=== PATIENT | female | born 1965 | race Two or more races ===

== ENCOUNTER 2020-07-11 16:00 | Outpatient (RCR) | payer MEDICAID, SELFPAY ==
--- NOTE | 2020-07-20 17:27 | MHC.PT.DC ---
[facility] [place] Office [place] [facility] [place] [facility] [address] Alayna Ghotra [address] [phone] F: [phone] F: [phone] F: [phone] F: [phone] Physical Therapy Discharge Report Diagnosis: PIRIFORMIS SYNDROME L SIDE Date of Surgery: N/A Date of Evaluation: 06/06/20 Date of Discharge: 07/20/20 Treatments to Date: 6 Cancellations to Date: 0 No Shows to Date: 2 Discharge Status: Patient Elected to Stop Discharge Summary: Per last note: Pt's right sided symptoms appear to resolve after side glides at wall. She has a difficult time describing her symptoms specifically, when they occur, what the intensity is like, and what movements make it better/worse, however. Trialed L child's pose which also seems to help and TPR to R piriformis. She continues to describe right sided thoracolumbar, hip, buttocks, and lateral leg symptoms as pulling/stretching. Re-edu: importance of HEP (side glides) to determine what improves or does not help her pain/symptoms. Pt verbalizes understanding. No increased pain by end of session. The patient called our office to discharge herself over concerns of COVID-19. Electronically signed by: Radha Cuellar PT, DPT Please sign and return to therapist. Thank you for your referral.
== END 2020-07-20 17:29 | disposition other institution (70) ==
LOC: HO.PT 16:00
PROVIDERS: PCP Emergency Medicine; Visit Provider Anesthesiology
DX: G57.02 Lesion of sciatic nerve, left lower limb (principal)
CPT/HCPCS: 97110; 97140

== ENCOUNTER 2020-12-13 13:01 | Outpatient (REF) | payer MEDICAID, SELFPAY ==
--- NOTE | ~2020-12-13 | US_ITS ---
EXAMINATION: US VENOUS ULTRASOUND WITH DOPPLER LOWER EXTREMITY, BILATERAL CLINICAL INFORMATION: Bilateral leg swelling x 3 months. COMPARISON: None TECHNIQUE: Ultrasound of the deep veins is performed from the hip to the calf with compression sonography and color and pulse Doppler assessment. Spectral analysis with color-flow imaging is performed. FINDINGS: RIGHT: There is normal venous compression and respiratory variation and augmented flow. The visualized common femoral vein, superficial femoral vein, profunda femoral vein, popliteal vein, and the trifurcation region shows no evidence of deep venous thrombosis. There is no significant popliteal fossa cyst. LEFT: There is a deep venous thrombosis seen in the left mid superficial femoral vein. The left proximal end distal superficial femoral, common femoral vein, greater saphenous, profunda, popliteal, peroneal and posterior tibial veins are patent. If the patient's symptoms persist, followup ultrasound in 5 days 7 days might be of value to exclude proximal propagation from a non-visualized calf vein. US/US venous duplex LE BI IMPRESSION: No DVT demonstrated in the right lower extremity. There is DVT seen within mid left superficial femoral vein. The proximal and distal superficial femoral and rest of the left lower leg veins are patent. Results were conveyed to referring physician by the performing industrial service technician.
== END 2020-12-13 13:02 | disposition home or self-care (01) ==
LOC: HO.US 13:01
PROVIDERS: PCP Nurse Practitioner Family; Visit Provider Nurse Practitioner Family
DX: R60.0 Localized edema (principal); M79.89 Other specified soft tissue disorders
CPT/HCPCS: 93970

== ENCOUNTER 2020-12-20 14:10 | Outpatient (REF) | payer MEDICAID, SELFPAY ==
--- NOTE | ~2020-12-20 | XR_ITS ---
EXAMINATION: XR CHEST CLINICAL INFORMATION: Hemoptysis COMPARISON: None TECHNIQUE: 2 views of the chest were obtained. FINDINGS: The lungs are well expanded. There is no focal consolidation, edema, or effusion. No pneumothorax. The cardiomediastinal silhouette is within normal limits. No acute osseous abnormality. Scoliotic curvature of the spine noted. XR/XR chest 2V IMPRESSION: No acute pulmonary finding.
== END 2020-12-20 14:11 | disposition home or self-care (01) ==
LOC: HO.XRAY 14:10
PROVIDERS: PCP Nurse Practitioner Family; Visit Provider General Practice
DX: R04.2 Hemoptysis (principal)
CPT/HCPCS: 71046

== ENCOUNTER 2021-02-07 13:20 | Outpatient (REF) | payer MEDICAID, SELFPAY | END 2021-02-07 13:21 | disposition home or self-care (01) | LOC: HO.LAB 13:20 | PROVIDERS: Visit Provider Obstetrics & Gynecology | DX: R35.0 Frequency of micturition (principal) | CPT/HCPCS: 87086; 99212 ==

== ENCOUNTER → 2021-02-14 13:37 | Outpatient (BNVA) | payer MEDICAID, SELFPAY | PROVIDERS: Visit Provider Obstetrics & Gynecology ==

== ENCOUNTER → 2021-03-21 11:28 | Outpatient (BNVA) | payer MEDICAID, SELFPAY | PROVIDERS: Visit Provider Obstetrics & Gynecology ==

== ENCOUNTER 2021-03-23 15:10 | Outpatient (REF) | payer MEDICAID, SELFPAY ==
--- NOTE | ~2021-03-23 | MM_ITS ---
EXAMINATION: MM SCREENING DIGITAL BREAST TOMOSYNTHESIS, BILATERAL CLINICAL INFORMATION: Screening. Asymptomatic. The lifetime risk of breast cancer based on the Tyrer-Cuzick Model is 7%. COMPARISON: Mammography: 12/03/2018, 11/27/2017, 11/25/2016 TECHNIQUE: Digital breast tomosynthesis is performed in both the craniocaudal and mediolateral oblique views along with computer-aided detection (CAD). Synthesized 2D images are generated from the tomosynthesis. FINDINGS: There are scattered areas of fibroglandular density (ACR BI-RADS breast composition Category b). Parenchymal pattern is similar to prior studies. There is no developing density or interval mass or architectural abnormality. No abnormal calcifications. The axilla and skin contours are unremarkable. MM/MM tomosynthesis screening BI IMPRESSION: No mammographic evidence of malignancy. ASSESSMENT: BI-RADS 1: Negative RECOMMENDATION: Routine annual mammography screening. This patient's information was entered into a reminder system with a target due date for their next mammogram.
== END 2021-03-23 15:11 | disposition home or self-care (01) ==
LOC: HO.MAMMO 15:10
PROVIDERS: PCP Nurse Practitioner Family; Visit Provider Nurse Practitioner Family
DX: Z12.31 Encounter for screening mammogram for malignant neoplasm of breast (principal)
CPT/HCPCS: 77063; 77067

== ENCOUNTER 2021-04-24 09:05 | Outpatient (REF) | payer MEDICAID, SELFPAY | END 2021-04-24 09:06 | disposition home or self-care (01) | LOC: CF 09:05 | PROVIDERS: PCP Nurse Practitioner Family | DX: N39.0 Urinary tract infection, site not specified (principal) | CPT/HCPCS: 51798; 87086; 87147; 99202 ==

== ENCOUNTER 2021-05-02 14:01 | Outpatient (REF) | payer MEDICAID, SELFPAY ==
--- NOTE | ~2021-05-02 | US_ITS ---
EXAMINATION: US VENOUS ULTRASOUND WITH DOPPLER LOWER EXTREMITY, LEFT CLINICAL INFORMATION: Follow up left leg deep vein thrombosis. COMPARISON: Lower extremity venous ultrasound dated 12/13/2020. TECHNIQUE: Ultrasound of the deep veins is performed from the hip to the calf with compression sonography and color and pulse Doppler assessment. Spectral analysis with color-flow imaging is performed. FINDINGS: There is normal venous compression and respiratory variation and augmented flow. The visualized common femoral vein, superficial femoral vein, profunda femoral vein, popliteal vein, and the trifurcation region shows no evidence of deep venous thrombosis. There is no significant popliteal fossa cyst. If the patient's symptoms persist, followup ultrasound in 5 days 7 days might be of value to exclude proximal propagation from a non-visualized calf vein. US/US venous duplex LE LT IMPRESSION: No DVT demonstrated in the left lower extremity. Previously seen left lower extremity deep vein thrombosis no longer identified.
== END 2021-05-02 14:02 | disposition home or self-care (01) ==
LOC: HO.US 14:01
PROVIDERS: Visit Provider Nurse Practitioner Family
DX: I82.542 Chronic embolism and thrombosis of left tibial vein (principal); Z79.01 Long term (current) use of anticoagulants
CPT/HCPCS: 93971

== ENCOUNTER → 2021-06-22 11:05 | Outpatient (BNVA) | payer MEDICAID, SELFPAY | PROVIDERS: PCP Nurse Practitioner Family; Referring Provider Nurse Practitioner Family; Visit Provider Surgery | DX: K80.50 Calculus of bile duct without cholangitis or cholecystitis without obstruction (principal); K80.20 Calculus of gallbladder without cholecystitis without obstruction | CPT/HCPCS: 99202 ==

== ENCOUNTER → 2021-07-03 13:43 | Outpatient (BNVA) | payer MEDICAID, SELFPAY | PROVIDERS: Visit Provider Nurse Practitioner Family | DX: M54.16 Radiculopathy, lumbar region (principal); E11.9 Type 2 diabetes mellitus without complications; I10 Essential (primary) hypertension; R00.0 Tachycardia, unspecified; Z88.8 Allergy status to other drugs, medicaments and biological substances | CPT/HCPCS: 99212 ==

== ENCOUNTER 2021-07-11 08:39 | Day surgery (SDC) | payer MEDICAID, SELFPAY ==
[2021-07-05 13:33] VITALS: BMI 34.0
--- NOTE | 2021-07-10 13:07 | HO.ANESPROP2 ---
Documented by User: Rita Garza NP 07/10/21 13:28 HPI - Anesthesia Eval Consult details Narrative: 56yo F for Cholecystectomy Laparoscopic,poss open DVT 11/2020 - f/u LE doppler negative. Xarelto d/c'd recently PMFSH Active Problems Active Problems: All Active Problems (Updated 07/05/21 @ 13:36 by Narda Rosenberg RN) Increased frequency of urination (Acute) UTI (urinary tract infection) (Acute) Biliary colic (Acute) Cholelithiasis (Acute) Lumbar radiculopathy, right (Acute) Past Medical History Medical History COVID-19 vaccine series completed Diabetes mellitus DVT (deep venous thrombosis) Elevated cholesterol GERD (gastroesophageal reflux disease) HTN (hypertension) Tachycardia Family History Family History Mother Uterine cancer Father Prostate cancer Surgical History Surgical History H/O colonoscopy H/O tubal ligation History of endometrial ablation History of right knee surgery Hx of dilation and curettage Hx of hemorrhoidectomy Social History Social History Are you a primary acute care clinical nurse specialist to a significant other at home: No Do you presently have visiting nurse or other home services: No Alcohol intake: never Patient Tobacco Use Status: Never used Tobacco Use of substances other than those prescribed or required for medical reasons: No Have you been hit, kicked, punched, or otherwise hurt by someone within the past year? If so, by whom?: No Are you DNR?: No Advance Directives: No Advance Directives Information Provided: Yes (informational brochure mailed) Advance Directives on File: No Recently lost weight without trying: No Eating poorly because of decreased appetite: No Nutrition Risks: No Nutritional Risk Patient : No Poor oral hygiene: No Sexual orientation: Straight/Heterosexual Gender identity: Female Meds Allergies Allergy/AdvReac Type Severity Reaction Status Date / Time citalopram Allergy facial tic Verified 07/11/21 08:59 Home Medications Medication Instructions Recorded Confirmed Last Taken Type loratadine 10 mg tablet 10 mg PO DAILY 02/14/21 07/05/21 Unknown History alcohol swabs (BD Alcohol Swabs) 0 pad TOPICAL 06/22/21 Unknown History baclofen 10 mg tablet 10 mg PO BID 06/22/21 07/05/21 07/11/21 07:00 History lancets 28 gauge (FreeStyle #100 ea 06/22/21 Unknown History Lancets) naproxen 500 mg tablet 500 mg PO BID 06/22/21 07/05/21 Unknown History pantoprazole 40 mg tablet,delayed 40 mg PO BID 06/22/21 07/05/21 07/11/21 07:00 History release pravastatin 10 mg tablet 10 mg PO DAILY 06/22/21 07/05/21 Unknown History metformin 500 mg tablet 500 mg PO BID tab 07/03/21 07/05/21 Unknown History diltiazem HCl 180 mg 2 cap PO DAILY 07/05/21 07/05/21 Unknown History capsule,extended release 24 hr (Cartia XT) losartan 50 mg tablet 1 tab PO DAILY 07/05/21 07/05/21 07/11/21 07:00 History Exam Exam Date and Time: July 10, 2021 1307 Height,Weight and Vital Signs: Height 5 ft 3 in Weight 87.09 kg Assessment and Plan Assessment Anesthesia Assessment: Chart Reviewed Documented by User: Savannah Wilson MD 07/11/21 09:59 [facility] Past Medical History Medical History COVID-19 vaccine series completed Diabetes mellitus DVT (deep venous thrombosis) Elevated cholesterol GERD (gastroesophageal reflux disease) HTN (hypertension) Tachycardia Family History Family History Mother Uterine cancer Father Prostate cancer Surgical History Surgical History H/O colonoscopy H/O tubal ligation History of endometrial ablation History of right knee surgery Hx of dilation and curettage Hx of hemorrhoidectomy History of Problems with Anesthesia: No Social History Social History Are you a primary acute care clinical nurse specialist to a significant other at home: No Do you presently have visiting nurse or other home services: No Alcohol intake: never Patient Tobacco Use Status: Never used Tobacco Use of substances other than those prescribed or required for medical reasons: No Have you been hit, kicked, punched, or otherwise hurt by someone within the past year? If so, by whom?: No Are you DNR?: No Advance Directives: No Advance Directives Information Provided: Yes (informational brochure mailed) Advance Directives on File: No Recently lost weight without trying: No Eating poorly because of decreased appetite: No Nutrition Risks: No Nutritional Risk Patient : No Poor oral hygiene: No Sexual orientation: Straight/Heterosexual Gender identity: Female Meds Allergies Allergy/AdvReac Type Severity Reaction Status Date / Time citalopram Allergy facial tic Verified 07/11/21 08:59 Home Medications Medication Instructions Recorded Confirmed Last Taken Type loratadine 10 mg tablet 10 mg PO DAILY 02/14/21 07/05/21 Unknown History alcohol swabs (BD Alcohol Swabs) 0 pad TOPICAL 06/22/21 Unknown History baclofen 10 mg tablet 10 mg PO BID 06/22/21 07/05/21 07/11/21 07:00 History lancets 28 gauge (FreeStyle #100 ea 06/22/21 Unknown History Lancets) naproxen 500 mg tablet 500 mg PO BID 06/22/21 07/05/21 Unknown History pantoprazole 40 mg tablet,delayed 40 mg PO BID 06/22/21 07/05/21 07/11/21 07:00 History release pravastatin 10 mg tablet 10 mg PO DAILY 06/22/21 07/05/21 Unknown History metformin 500 mg tablet 500 mg PO BID tab 07/03/21 07/05/21 Unknown History diltiazem HCl 180 mg 2 cap PO DAILY 07/05/21 07/05/21 Unknown History capsule,extended release 24 hr (Cartia XT) losartan 50 mg tablet 1 tab PO DAILY 07/05/21 07/05/21 07/11/21 07:00 History Exam Airway Mallampati Class: II TM Dist: >3cm Neck ROM: Full Loose/Missing/Broken Teeth: No Heart: RRR Lungs: CTA Assessment and Plan Final Anesthetic Review History of Problems with Anesthesia: No NPO: Yes ASA Class: II Final Preanesthetic Review: Meds/Allgs Chart Reviewed, Consent Obtained/Reviewed and Anes Risks/Benef Reviewed Patient Risk: Low Procedure Risk: Intermediate Anesthetic Plan Anesthetic Plan: GA Disposition: Standard PACU
[2021-07-11] VITALS (8 sets, daily range): BP systolic 118–148; BP diastolic 64–77; PULSE 57–77; RESP 16–18; TEMP 36.4–36.6; O2SAT 95–100
--- NOTE | 2021-07-11 | ECG_ITS ---
Test Reason : preop Blood Pressure : / mmHG Vent. Rate : 076 BPM Atrial Rate : 076 BPM P-R Int : 168 ms QRS Dur : 078 ms QT Int : 382 ms P-R-T Axes : 045 034 -09 degrees QTc Int : 429 ms Normal sinus rhythm Nonspecific ST abnormality Borderline ECG When compared with ECG of 20-AUG-2016 13:40, No significant change was found Referred By: Rita Garza Electronically Signed By:JEANE VEGAS MD
[2021-07-11 09:05] LABS: Glucose, Whole Blood 125 mg/dL (60-115)
[2021-07-11] MEDS: Acetaminophen 325 MG TABLET 650 MG PO (09:05)
[2021-07-11] MEDS: Lactated Ringers 1,000 ML 100 ML IVCONT (09:29)
[2021-07-11 09:31] LABS: Hematocrit 37.9 % (37-47); Hemoglobin 12.6 g/dl (12.0-16.0); Mean Corpuscular HGB Conc 33.2 g/dl (31.0-35.0); Mean Corpuscular Hemoglobin 29.3 pg (27.0-33.0); Mean Corpuscular Volume 88.1 fL (80-98); Platelet Count 172 X10*3/uL (160-400); White Blood Count 5.7 X10*3/uL (4.8-10.8)
[2021-07-11 09:36] LABS: Anion Gap 12 (12-20); Blood Urea Nitrogen 11 mg/dL (9-16); Calcium 9.3 mg/dL (8.4-10.2); Carbon Dioxide 25 mmol/L (22-29); Chloride 108 mmol/L (96-108); Creatinine Clr Calc Pharmacy 75.6; Estimated Glomerular Filt Rate > 60; Glucose Fasting 129 mg/dL (60-99); Potassium 3.8 mmol/L (3.3-5.1); Sodium 141 mmol/L (135-145)
--- NOTE | 2021-07-11 09:56 | MHC.SHP ---
Pre-Procedural Eval Section A Date of Service: 07/11/21 The patient is an INPATIENT: No Changes since office visit: Yes Patient answered all questions; No Cold of Flu in the past 2 weeks, No New Medical Problems and No Changes in Medication The History & Physical has been completed within 30 days and I have reviewed it.: Yes Section B Chief Complaint: disease of gallbladder Allergies: Allergies Allergy/AdvReac Type Severity Reaction Status Date / Time citalopram Allergy facial tic Verified 07/11/21 08:59 Plan Diagnosis/Plan: Unchanged I have reviewed the history and physical and performed a pertinent physical examination on my patient. No changes have occurred unless specified.
--- NOTE | 2021-07-11 11:12 | W.PM.OPN ---
Operative Note Operative Note Date of Service: 07/11/21 Narrative: Preoperative diagnosis: Biliary colic Postoperative diagnosis: Same Procedure: Laparoscopic cholecystectomy Surgeon: Darrel Panda MD Diplomatic Interpreter: NURA Gerard Anesthesia: General endotracheal Indications for procedure: 56 year old female patient wit complaints of abdominal pain in the right upper quadrant, found on ultrasound to have gallstones in the gallbladder. She has a strong family history of biliary disease. She presents today for a laparoscopic cholecystectomy Operative findings:Adhesions to the gallbladder with evidence of previous inflammation of the gallbladder. Gallstones in gallbladder Specimen: gallbladder Estimated blood loss:2 ml Complications: none Procedure details: Patient was brought to the OR and placed in a supine position. After administering general anesthesia the patient's abdomen was prepped with ChloraPrep and draped in a sterile fashion. Local anesthesia consisting of 0.5% Sensorcaine without epinephrine was infiltrated in a periumbilical region. A 5 mm incision was made above the umbilicus in a transverse fashion. The Veress needle was then inserted while elevating abdominal cavity with towel clips. After positive drop test the abdomen was insufflated to a pressure of 15 mm of mercury. The Veress needle was then removed and a 5 mm trocar inserted. The camera was inserted in the abdomen explored. A 12 mm trocar was then placed in the epigastrium and two 5 mm trocars placed in the right upper quadrant. The patient was placed in reverse Trendelenburg positioning and rotated to the left. The gallbladder was grasped with the fundus and retracted cephalad.. The infundibulum was then grasped and retracted away from the liver bed. The Dolphin dissected was then used to dissect the peritoneum off the infundibulum to reveal the junction with the cystic duct. Cystic artery was noted slightly medial and posterior to the cystic duct. After obtaining a critical view the cystic duct was doubly clipped and divided. The cystic artery was then doubly clipped and divided. The gallbladder was then dissected off the liver bed using electrocautery with an L hook. Hemostasis was assured all times using the electrocautery. When the gallbladder is completely dissected off the liver bed was placed in an Endo-Catch bag and brought out through the epigastric incision. The gallbladder was sent to pathology for further examination. The abdomen was then re-examined. The liver bed was irrigated and suctioned dry. No bleeding or bile leak could be identified. CO2 was then evacuated and all trocars removed. Fascia was closed at the epigastric incision using a [id number] 0 Polysorb suture. Skin was closed in all incisions using a subcuticular 4 0 Polysorb suture. Sterile dressings consisting of Steri-Strips, 2 x 2 gauze, and Tegaderm were then applied. The patient tolerated the procedure well. Sponge instrument and needle counts reported as correct. The patient was transferred to PACU in stable condition.
[2021-07-11] MEDS: oxyCODONE HCl Immed Release 5 MG TABLET PO (11:55)
[2021-07-11] MEDS: Ondansetron ODT 4 MG TAB.RAPDIS TRANSLINGU (12:56)
--- NOTE | 2021-07-11 13:02 | PC.NURSE ---
07/11/21 1255 Patient complaining of nausea Zofran 4mg subliqual given as ordered for nausea. Patient states pain is tolerable. IOnterpreter used
== END 2021-07-11 13:40 | disposition home or self-care (01) ==
PROVIDERS: Nurse Practitioner; PCP Nurse Practitioner Family; Visit Provider Surgery
PROC: 0FT44ZZ Resection of Gallbladder, Percutaneous Endoscopic Approach (ICD-10-PCS; CPT 47562; principal; 2021-07-11 10:20)
DX: K80.10 Calculus of gallbladder with chronic cholecystitis without obstruction (principal); K82.8 Other specified diseases of gallbladder; E11.9 Type 2 diabetes mellitus without complications; Z79.84 Long term (current) use of oral hypoglycemic drugs; I10 Essential (primary) hypertension; Z79.899 Other long term (current) drug therapy; Z86.718 Personal history of other venous thrombosis and embolism
CPT/HCPCS: 47562; 36415; 80048; 82947; 85027; 88304; 93005; J1100; J2250; J2405; J3010

== ENCOUNTER → 2021-07-20 10:52 | Outpatient (BNVA) | payer MEDICAID, SELFPAY | PROVIDERS: PCP Nurse Practitioner Family; Referring Provider Nurse Practitioner Family; Visit Provider Surgery | DX: Z48.815 Encounter for surgical aftercare following surgery on the digestive system (principal); Z87.19 Personal history of other diseases of the digestive system | CPT/HCPCS: 99212 ==

== ENCOUNTER 2021-07-31 06:28 | Outpatient (REF) | payer MEDICAID, SELFPAY ==
--- NOTE | ~2021-07-31 | FL_ITS ---
EXAMINATION: XR FLUOROSCOPY WITH IMAGES CLINICAL INFORMATION: Lumbar radiculopathy. COMPARISON: None. TECHNIQUE: Fluoroscopy performed by Elo Mosley NP. Fluoroscopy time: 0.3 minutes DAP: 4.87 Gycm2 Images: 1 FINDINGS: Fluoroscopic assistance was provided at the time of the procedure. There is a radiopaque needle and a radiopaque tube identified projecting at the level of the right neural foramina at the level of L3-L4 with opacified contrast. FL/FL guidance in treatment room IMPRESSION: Please refer to the procedural note for further full details.
== END 2021-07-31 06:29 | disposition home or self-care (01) ==
LOC: HO.RADIR 06:28
PROVIDERS: Visit Provider Anesthesiology
DX: M54.16 Radiculopathy, lumbar region (principal)
CPT/HCPCS: J3300; Q9967

== ENCOUNTER → 2021-08-28 09:21 | Outpatient (BNVA) | payer MEDICAID, SELFPAY | PROVIDERS: PCP Nurse Practitioner Family; Visit Provider Nurse Practitioner Family | DX: M47.816 Spondylosis without myelopathy or radiculopathy, lumbar region (principal); M53.3 Sacrococcygeal disorders, not elsewhere classified | CPT/HCPCS: 99212 ==

== ENCOUNTER → 2021-10-19 14:56 | Outpatient (BNVA) | payer MEDICAID, SELFPAY | PROVIDERS: PCP Nurse Practitioner Family; Visit Provider Nurse Practitioner Family | DX: M47.816 Spondylosis without myelopathy or radiculopathy, lumbar region (principal); M53.3 Sacrococcygeal disorders, not elsewhere classified | CPT/HCPCS: 99212 ==

== ENCOUNTER 2022-01-15 14:56 | Outpatient (REF) | payer MEDICAID, SELFPAY ==
[2022-01-18 09:16] LABS: HPV mRNA E6/E7 rflx Not Detected (Not Detected)
== END 2022-01-15 14:57 | disposition home or self-care (01) ==
LOC: HO.LAB 14:56
PROVIDERS: PCP Nurse Practitioner Family; Visit Provider Obstetrics & Gynecology
DX: Z01.419 Encounter for gynecological examination (general) (routine) without abnormal findings (principal); N88.9 Noninflammatory disorder of cervix uteri, unspecified
CPT/HCPCS: 57500; 87624; 88142; 88305

== ENCOUNTER → 2022-02-06 15:47 | Outpatient (BNVA) | payer MEDICAID, SELFPAY | PROVIDERS: Visit Provider Obstetrics & Gynecology | DX: N88.9 Noninflammatory disorder of cervix uteri, unspecified (principal) | CPT/HCPCS: 99212 ==

== ENCOUNTER 2022-03-06 15:45 | Outpatient (REF) | payer MEDICAID, SELFPAY ==
--- NOTE | ~2022-03-06 | US_ITS ---
EXAMINATION: US LOWER EXTREMITY VENOUS DOPPLER, LEFT CLINICAL INFORMATION: Left leg pain. COMPARISON: None TECHNIQUE: Ultrasound of the deep veins is performed from the hip to the calf with compression sonography and color and pulse Doppler assessment. Spectral analysis with color-flow imaging is performed. FINDINGS: There is normal venous compression and respiratory variation and augmented flow. The visualized common femoral vein, superficial femoral vein, profunda femoral vein, popliteal vein, and the trifurcation region shows no evidence of deep venous thrombosis. There is no significant popliteal fossa cyst. Incidental note is made of anechoic fluid collection in the proximal medial calf where patient complains of pain, question muscle tear/hematoma. It measures 3.4 x 2.1 x 0.64 cm. If the patient's symptoms persist, followup ultrasound in 5 days 7 days might be of value to exclude proximal propagation from a non-visualized calf vein. US/US venous duplex LE IMPRESSION: No DVT demonstrated in the left lower extremity. Small anechoic fluid collection in the medial calf most likely hematoma or seroma from muscle tear.
== END 2022-03-06 15:46 | disposition home or self-care (01) ==
LOC: HO.US 15:45
PROVIDERS: Visit Provider Nurse Practitioner Family
DX: M79.605 Pain in left leg (principal)
CPT/HCPCS: 93971

== ENCOUNTER 2022-03-26 15:55 | Outpatient (REF) | payer MEDICAID, SELFPAY ==
--- NOTE | ~2022-03-26 | MM_ITS ---
EXAMINATION: MM SCREENING DIGITAL BREAST TOMOSYNTHESIS, BILATERAL CLINICAL INFORMATION: Screening. Asymptomatic. The lifetime risk of breast cancer based on the Tyrer-Cuzick Model is 8%. COMPARISON: Mammography: 03/23/2021, 12/03/2018, 11/27/2017 TECHNIQUE: Digital breast tomosynthesis is performed in both the craniocaudal and mediolateral oblique views along with computer-aided detection (CAD). Synthesized 2D images are generated from the tomosynthesis. Additional left MLO view is provided. FINDINGS: There are scattered areas of fibroglandular density (ACR BI-RADS breast composition Category b). There are no significant masses, abnormal calcifications, or other abnormalities. Parenchymal pattern is similar to previous exams. No significant changes. MM/MM tomosynthesis screening BI IMPRESSION: No mammographic evidence of malignancy. ASSESSMENT: BI-RADS 1: Negative RECOMMENDATION: Routine annual mammography screening. This patient's information was entered into a reminder system with a target due date for their next mammogram.
== END 2022-03-26 15:56 | disposition home or self-care (01) ==
LOC: HO.MAMMO 15:55
PROVIDERS: Visit Provider Obstetrics & Gynecology
DX: Z12.31 Encounter for screening mammogram for malignant neoplasm of breast (principal)
CPT/HCPCS: 77063; 77067

== ENCOUNTER → 2022-03-29 15:48 | Outpatient (BNVA) | payer MEDICAID, SELFPAY | PROVIDERS: Visit Provider Nurse Practitioner Family | DX: M47.816 Spondylosis without myelopathy or radiculopathy, lumbar region (principal); M53.3 Sacrococcygeal disorders, not elsewhere classified; M62.838 Other muscle spasm | CPT/HCPCS: 99212 ==

== ENCOUNTER → 2022-06-24 15:26 | Outpatient (BNVA) | payer MEDICAID, SELFPAY | PROVIDERS: Visit Provider Anesthesiology | DX: M47.816 Spondylosis without myelopathy or radiculopathy, lumbar region (principal); M53.3 Sacrococcygeal disorders, not elsewhere classified; M51.36 Other intervertebral disc degeneration, lumbar region | CPT/HCPCS: 99212 ==

== ENCOUNTER 2022-09-12 13:57 | Outpatient (REF) | payer MEDICAID, SELFPAY ==
--- NOTE | ~2022-09-12 | US_ITS ---
EXAMINATION: US VENOUS ULTRASOUND WITH DOPPLER LOWER EXTREMITY, LEFT CLINICAL INFORMATION: History of DVT COMPARISON: Previous exams most recent February 2022 TECHNIQUE: Ultrasound of the deep veins is performed from the hip to the calf with compression sonography and color and pulse Doppler assessment. Spectral analysis with color-flow imaging is performed. FINDINGS: There is normal venous compression and respiratory variation and augmented flow. The visualized common femoral vein, superficial femoral vein, profunda femoral vein, popliteal vein, and the trifurcation region shows no evidence of deep venous thrombosis. There is no significant popliteal fossa cyst. US/US venous duplex LE LT IMPRESSION: No DVT demonstrated in the left lower extremity.
== END 2022-09-12 13:58 | disposition home or self-care (01) ==
LOC: HO.US 13:57
PROVIDERS: PCP Registered Nurse; Visit Provider Registered Nurse
DX: Z86.718 Personal history of other venous thrombosis and embolism (principal)
CPT/HCPCS: 93971

== ENCOUNTER 2022-12-31 07:58 | Outpatient (REF) | payer MEDICAID, SELFPAY ==
--- NOTE | ~2022-12-31 | MM_ITS ---
EXAMINATION: MM DIAGNOSTIC DIGITAL BREAST TOMOSYNTHESIS, BILATERAL US DIAGNOSTIC ULTRASOUND BREAST, BILATERAL CLINICAL INFORMATION: 57-year-old with 2-3 week history of on and off scattered bilateral breast pain, greater upper quadrants. No palpable mass or discharge. Due for yearly. The lifetime risk of breast cancer based on the Tyrer-Cuzick Model is 6%. COMPARISON: Multiple prior exams, most recent 03/26/2022. TECHNIQUE: Digital breast tomosynthesis is performed in both the craniocaudal and mediolateral oblique views along with computer-aided detection (CAD). Synthesized 2D images are generated from the tomosynthesis. Ultrasound bilateral breasts is targeted to the areas of clinical concern using grayscale imaging and color Doppler without and with harmonics. Patient is able to point areas of concern at time of imaging. FINDINGS: There are scattered areas of fibroglandular density (ACR BI-RADS breast composition Category b). Parenchymal pattern is similar to prior studies. There is no developing density or architectural abnormality. No skin thickening or coarsening of the Dewey's ligaments. There are no significant masses, abnormal calcifications, or other abnormalities. The axilla and skin contours are unremarkable. No significant changes. Bilateral breast ultrasound demonstrates no cystic or solid mass or architectural abnormality. No focal duct ectasia. No skin thickening or edema tracking in soft tissue planes. Results are discussed with the patient at time of visit. MM/MM tomosynthesis diagnostic BI IMPRESSION: -No mammographic evidence of malignancy or inflammatory changes. -Unremarkable bilateral targeted breast ultrasound. ASSESSMENT: BI-RADS 1: Negative RECOMMENDATION: 1. Patient's mastodynia should be managed based on the clinical impression. 2. Otherwise, routine annual screening mammography. This patient's information was entered into a reminder system with a target due date for their next mammogram.
== END 2022-12-31 07:59 | disposition home or self-care (01) ==
LOC: HO.MAMMO 07:58
PROVIDERS: Visit Provider Registered Nurse
DX: N64.4 Mastodynia (principal)
CPT/HCPCS: 76642; 77062; 77066

== ENCOUNTER → 2023-01-20 14:59 | Outpatient (BNVA) | payer MEDICAID, SELFPAY | PROVIDERS: PCP Registered Nurse; Visit Provider Obstetrics & Gynecology ==

== ENCOUNTER 2023-07-14 17:03 | Emergency (ER) | payer MEDICAID, SELFPAY ==
[2023-07-14 17:17] VITALS: BP 158/76; PULSE 86; RESP 20; TEMP 36.5; O2SAT 96; BMI 33.3
--- NOTE | 2023-07-14 17:18 | ED_ITS ---
HPI - General Adult General Chief complaint: General Medical Stated complaint: accidentally took her diltiazem 6hrs early.anxious Time Seen by Provider: 07/14/23 18:19 Source: patient Mode of arrival: ambulatory Limitations: no limitations History of Present Illness HPI narrative: 58 yo female presenting to the ER for evaluation after she accidentally took her prescribed cardizem 6 hours earlier than she usually does. she is anxous and worried but she denies chest pain, SOB, dizziness, lightheadedness. she states she is on cardizem for tachycardia and she was worried about getting a slow heart rate complaint: anxious Onset (ago): hour(s) Relieving factors: none Exacerbating factors: none Associated symptoms: denies other symptoms Treatments prior to arrival: none Related Data Home Medications Medication Instructions Recorded Confirmed alcohol swabs (BD Alcohol Swabs) 0 pad topical diabetes mellitus 06/22/21 lancets 28 gauge (FreeStyle #100 ea 06/22/21 Lancets) pantoprazole 40 mg tablet,delayed 40 mg PO BID 06/22/21 03/29/22 release pravastatin 10 mg tablet 10 mg PO DAILY 06/22/21 03/29/22 metformin 500 mg tablet 500 mg PO BID 07/03/21 03/29/22 diltiazem HCl 180 mg 2 cap PO DAILY 07/05/21 03/29/22 capsule,extended release 24 hr (Cartia XT) losartan 50 mg tablet 1 tab PO DAILY 07/05/21 03/29/22 cetirizine 10 mg tablet 10 mg PO DAILY PRN allergies 01/20/23 Previous Rx's Medication Instructions Recorded back brace #1 ea 08/28/21 cyclobenzaprine 10 mg tablet 10 mg PO BID PRN muscle spasm 30 06/24/22 days #45 tabs Allergies Allergy/AdvReac Type Severity Reaction Status Date / Time citalopram Allergy facial tic Verified 01/20/23 15:28 methocarbamol AdvReac Intermediate insomnia Verified 01/20/23 15:28 Review of Systems Review of Systems: Yes all other systems are reviewed and are negative PMFSH Past Medical History Medical History COVID-19 vaccine series completed Diabetes mellitus DVT (deep venous thrombosis) Elevated cholesterol GERD (gastroesophageal reflux disease) HTN (hypertension) Tachycardia Surgical History H/O colonoscopy H/O tubal ligation History of endometrial ablation History of right knee surgery Hx of dilation and curettage Hx of hemorrhoidectomy S/P laparoscopic cholecystectomy (07/11/21) Family History Family History Mother Uterine cancer Father Prostate cancer Family/Other History of breast cancer Family/Other Ovarian cancer Brother Prostate cancer Social History Social History Are you a primary rn progressive care unit to a significant other at home: No Do you presently have visiting nurse or other home services: No Alcohol intake: never Patient Tobacco Use Status: Never used Tobacco Sexual orientation: Straight/Heterosexual Gender identity: Female Physical Exam ED Vital Signs: Vital Signs - 24 hr 07/14/23 17:17 07/14/23 18:23 Temperature 97.7 F Pulse Rate 86 80 Respiratory Rate 20 18 Blood Pressure 158/76 H 169/79 H Pulse Oximetry 96 100 Oxygen Delivery Method Room Air Room Air BMI result Body Mass Index 33.3 Appearance: Alert. Oriented X3. No acute distress. HEENT: normal inspection CVS: Normal heart rate and rhythm. Pulses normal. Respiratory: No respiratory distress. Lungs CTAB Skin: Skin warm and dry. Normal skin color. Extremities: normal inspection Neuro: Oriented X 3. grossly nomal, nonfocal Course Course Course Narrative: RME performed by Marianne Rocha PA-C. Patient is a 58 year old assigned female at presenting to the emergency department with anxiety after taking her Cardizem early. Patient placed back in the waiting room pending room availability. Medical Decision Making Medical Decision Making MDM Narrative: 58 yo female presents to the ER after taking her prescribed cardizem ER early by mistake. she usually takes 2 tablets at night before bed. she accidentally took them this evening, was able to spit one out but swallowed the other. she is worried about a slow heart rate she denies palpitations, lethargy, dizziness, lightheadedness. she is anxious HR 70-80s in the ER with BP 150-160 systolic. patient counseled adn reassured - no safety concern w/ taking the medication early. stable for discharge home Differential Diagnosis Differential Diagnoses: The differential diagnosis associated with the presentation includes adverse reaction to medication, anxiety, medication overdose Chronic Conditions Patient?s care impacted by: Other (tachycardia) Critical Care Time Critical Care Time Critical Care Time: No Discharge Plan Discharge Clinical Impression: Anxiety Patient Disposition: Home, Self-Care Instructions: Anxiety (ED) Additional Instructions: Taking your cardizem early is not dangerous. Your heart rates were normal in the ER today It is okay to take your 2nd pill of cardizem later tonight and then resume your regular schudule tomorrow follow up with your doctor as needed If you develop new or worsening symptoms call 911 or come back to the ER for further evaluation. Prescriptions: No Action diltiazem HCl [Cartia XT] 180 mg capsule,extended release 24hr 2 cap PO DAILY losartan 50 mg tablet 1 tab PO DAILY pantoprazole 40 mg tablet,delayed release (DR/EC) 40 mg PO BID (DME) lancets [FreeStyle Lancets] 28 gauge misc See Rx Instructions Not Applicable DAILY Qty: 100 Rx Instructions: As directed alcohol swabs [BD Alcohol Swabs] Pads, Medicated 0 pad topical pravastatin 10 mg tablet 10 mg PO DAILY metformin 500 mg tablet 500 mg PO BID (DME) back brace Misc See Rx Instructions .Route Qty: 1 0RF Rx Instructions: As directed cetirizine 10 mg tablet 10 mg PO DAILY PRN (Reason: allergies) cyclobenzaprine 10 mg tablet 10 mg PO BID PRN (Reason: muscle spasm) 30 Days Qty: 45 11RF
[2023-07-14 18:23] VITALS: BP 169/79; PULSE 80; RESP 18; O2SAT 100
--- NOTE | 2023-07-14 18:24 | PC.NURSE ---
Vitals rechecked, HR/BP stable, provider at bedside, education given to patient on medication to take tonight, pt is still anxious but is in agreement with plan
== END 2023-07-14 18:37 | disposition home or self-care (01) ==
PROVIDERS: Emergency Provider Emergency Medicine Emergency Medical Services
DX: F41.1 Generalized anxiety disorder (principal); F43.0 Acute stress reaction; Z86.718 Personal history of other venous thrombosis and embolism; I10 Essential (primary) hypertension; Z79.899 Other long term (current) drug therapy
CPT/HCPCS: 99282

== ENCOUNTER 2023-07-21 14:31 | Outpatient (REF) | payer MEDICAID, SELFPAY ==
[2023-07-22 12:12] LABS: Vitamin D 25-OH Total 57.1 ng/mL (>30)
== END 2023-07-21 14:32 | disposition home or self-care (01) ==
LOC: HO.CHCLDS 14:31
PROVIDERS: Visit Provider Registered Nurse
DX: E55.9 Vitamin D deficiency, unspecified (principal)
CPT/HCPCS: 36415; 82306

== ENCOUNTER 2023-07-29 14:23 | Outpatient (REF) | payer MEDICAID, SELFPAY ==
--- NOTE | ~2023-07-29 | XR_ITS ---
EXAMINATION: XR BILATERAL KNEES CLINICAL INFORMATION: Reason for Exam PAIN COMPARISON: None TECHNIQUE: 4 views of the bilateral knees FINDINGS: RIGHT KNEE: No acute fracture or dislocation. Well-corticated defect in the medial right patella which may be postsurgical or chronic posttraumatic in etiology. Mild degenerative changes of the knee with medial and lateral compartment osteophytes. No joint effusion. Soft tissues are unremarkable. LEFT KNEE: No acute fracture or dislocation. Mild degenerative changes of the knee with small medial compartment osteophytes. No joint effusion. Soft tissues are unremarkable. XR/XR knee RT 3V IMPRESSION: * No acute osseous abnormality. Well-corticated defect in the medial right patella which may be postsurgical or chronic posttraumatic in etiology. * Mild degenerative changes of the knees.
--- NOTE | ~2023-07-29 | XR_ITS ---
EXAMINATION: XR BILATERAL KNEES CLINICAL INFORMATION: Reason for Exam PAIN COMPARISON: None TECHNIQUE: 4 views of the bilateral knees FINDINGS: RIGHT KNEE: No acute fracture or dislocation. Well-corticated defect in the medial right patella which may be postsurgical or chronic posttraumatic in etiology. Mild degenerative changes of the knee with medial and lateral compartment osteophytes. No joint effusion. Soft tissues are unremarkable. LEFT KNEE: No acute fracture or dislocation. Mild degenerative changes of the knee with small medial compartment osteophytes. No joint effusion. Soft tissues are unremarkable. XR/XR knee LT 3V IMPRESSION: * No acute osseous abnormality. Well-corticated defect in the medial right patella which may be postsurgical or chronic posttraumatic in etiology. * Mild degenerative changes of the knees.
== END 2023-07-29 14:24 | disposition home or self-care (01) ==
LOC: HO.HHCX 14:23
PROVIDERS: Visit Provider Registered Nurse
DX: M25.561 Pain in right knee (principal); M25.562 Pain in left knee; G89.29 Other chronic pain
CPT/HCPCS: 73562

== ENCOUNTER 2023-10-02 13:48 | Outpatient (AMB) | payer MEDICAID, SELFPAY ==
--- NOTE | 2023-10-02 13:50 | A.OFFVIS_ITS ---
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 She complains of pain with daily activity. She follows with Pain Management for lumbar DDD. [facility] Medical History COVID-19 vaccine series completed Diabetes mellitus DVT (deep venous thrombosis) Elevated cholesterol GERD (gastroesophageal reflux disease) HTN (hypertension) Tachycardia Surgical History H/O colonoscopy H/O tubal ligation History of endometrial ablation History of right knee surgery Hx of dilation and curettage Hx of hemorrhoidectomy S/P laparoscopic cholecystectomy (07/11/21) Family History Mother Uterine cancer Father Prostate cancer Family/Other History of breast cancer Family/Other Ovarian cancer Brother Prostate cancer Social History Are you a primary home care manager rn to a significant other at home: No Do you presently have visiting nurse or other home services: No Alcohol intake: never Patient Tobacco Use Status: Never used Tobacco Sexual orientation: Straight/Heterosexual Gender identity: Female Female Reproductive History Menstrual Age of Menarche: 14 Review of Systems Const All systems reviewed & are unremarkable except as noted in HPI and below Physical Exam Vital Signs: BMI result Body Mass Index 35.1 Const General: no acute distress, alert and awake Orientation/consciousness: patient oriented x3 HEENT Head: Yes normocephalic and Yes atraumatic Eyes EOM: EOMs intact bilaterally Resp Effort & Inspection: normal respiratory effort and able to speak in complete sentences Cardio Jugular venous distension: no JVD Skin General skin exam: turgor normal Rashes: no rashes Neuro General: patient oriented x3 Extrem Other: Bilateral knees with full rom and + ttp lateral retroptellar facet. No effusion Psych Appearance: grossly normal Affect: normal affect Attitude: cooperative Results Reviewed Results Reviewed: I personally reviewed relevant radiographs well healed medial patellar facet defect. Assessment & Plan Assessment & Plan (1) Patellofemoral arthralgia of both knees: Code(s): M22.2X1 - Patellofemoral disorders, right knee; M22.2X2 - Patellofemoral disorders, left knee Plan: Patellar lateralization right > left Ck pull knee sleeves and PT. She is not interested in PT at this time. Plan Scribed for Manohar Rico MD by Sameer Lucia, director medical safety, on 10/02/23 at 2:05 PM, EST. Coding Level of Care Code New Pt Level 4 (27225) Diagnoses Patellofemoral arthralgia of both knees M22.2X1; M22.2X2
[2023-10-02 13:52] VITALS: BMI 35.1
== END 2023-10-02 14:53 | disposition home or self-care (01) ==
PROVIDERS: Visit Provider Orthopaedic Surgery
DX: M22.2X1 Patellofemoral disorders, right knee (principal); M22.2X2 Patellofemoral disorders, left knee
CPT/HCPCS: 99203

== ENCOUNTER → 2023-10-02 13:48 | Outpatient (BNVA) | payer MEDICAID, SELFPAY | PROVIDERS: Visit Provider Orthopaedic Surgery | DX: M22.2X1 Patellofemoral disorders, right knee (principal); M22.2X2 Patellofemoral disorders, left knee | CPT/HCPCS: 99202 ==

== ENCOUNTER → 2024-01-08 15:00 | Outpatient (BNV) | payer MEDICAID, SELFPAY | PROVIDERS: PCP Registered Nurse; Visit Provider Radiology Diagnostic Radiology | DX: Z12.31 Encounter for screening mammogram for malignant neoplasm of breast (principal) | CPT/HCPCS: 77063; 77067 ==

== ENCOUNTER 2024-01-08 15:12 | Outpatient (REF) | payer MEDICAID, SELFPAY | END 2024-01-08 15:13 | disposition home or self-care (01) | LOC: HO.MAMMO 15:12 | PROVIDERS: PCP Registered Nurse; Visit Provider Obstetrics & Gynecology | DX: Z12.31 Encounter for screening mammogram for malignant neoplasm of breast (principal) | CPT/HCPCS: 77063; 77067 ==

== ENCOUNTER 2024-01-27 11:36 | Outpatient (AMB) | payer MEDICAID, SELFPAY ==
--- NOTE | 2024-01-27 11:45 | A.OFFVIS_ITS ---
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 Complaining of 5 episodes of postcoital bleeding starting 5 months ago. The patient was seen for anterior cervical erythema couple of years ago biopsy from that you cervical lip and ECC came back within normal Last Pap/HPV was negative Last Mammogram was done on 01/08/2024, the report is still pending Last Colonoscopy was done in 09/06, the recommendation was to repeat in 10 years [facility] Medical History DVT (deep venous thrombosis) COVID-19 vaccine series completed GERD (gastroesophageal reflux disease) Elevated cholesterol HTN (hypertension) Diabetes mellitus Tachycardia Surgical History S/P laparoscopic cholecystectomy (07/11/21) History of endometrial ablation H/O colonoscopy Hx of dilation and curettage Hx of hemorrhoidectomy History of right knee surgery H/O tubal ligation Family History Mother Uterine cancer Father Prostate cancer Family/Other History of breast cancer Family/Other Ovarian cancer Brother Prostate cancer Social History Household Members: Spouse Household Members Other:: son Housing: Apartment Are you a primary career technology teacher to a significant other at home: No Do you presently have visiting nurse or other home services: No Alcohol intake: never Patient Tobacco Use Status: Never used Tobacco Current occupational status: unemployed Sexually active: Yes Sexual orientation: Straight/Heterosexual Gender identity: Female Female Reproductive History Menstrual Age of Menarche: 14 control method: permanent sterilization Menopause type: natural Total pregnancies: 6 Full term: 4 Number of Living Children: 4 Ab spontaneous: 2 Date of last pap smear: 01/16/22 Date of Mammogram: 01/08/24 Review of Systems Const All systems reviewed & are unremarkable except as noted in HPI and below Card Reports as per HPI Resp Reports as per HPI GI Reports as per HPI and Reports no additional complaints Reports as per HPI Physical Exam Vital Signs: Last Vital Signs BP 132/72 01/27/24 11:46 BMI result Body Mass Index 35.4 Const General: cooperative, healthy appearing and comfortable Chest Chest palpation & inspection: normal inspection of the chest and normal palpation of entire chest wall Breast/axilla inspection: normal inspection of the breasts and normal inspection of the axillae Breast/axilla palpation: normal palpation of the breasts, normal palpation of the axillae and no axillary lymphadenopathy Resp Effort & Inspection: normal respiratory effort Auscultation: clear to auscultation bilaterally Percussion: percussion normal Cardio Palpation: normal PMI Rate: regular rate Rhythm: regular rhythm Heart sounds: no murmurs and no rubs Peripheral pulses: Peripheral pulses 2+ throughout GI Inspection: Yes normal to inspection Palpation (GI): Soft to palpation, nontender, no guarding, not rigid and No hepatosplenomegaly present Percussion: Yes normal to percussion Auscultation: normal bowel sounds Rectal Exam - Female: deferred General: Yes bladder normal to palpation External Female Exam: No lesion Speculum Exam - Vagina: normal appearance of the vagina, normal palpation, normal vaginal discharge and not erythematous Speculum Exam - Cervix: normal palpation and Other cervical findings present Bimanual exam- vagina & uterus: normal bimanual exam, normal palpation, uterine size normal, bladder normal to palpation, consistency normal and normal palpation Bimanual Exam- Adnexa, other: normal adnexae, no masses and no tenderness Assessment & Plan Assessment & Plan (1) Well woman exam: Code(s): Z01.419 - Encounter for gynecological examination (general) (routine) without abnormal findings Category: Medical Plan: Cotesting not indicated this year. Instructions given to patient to schedule next screening Mammogram in 01/14. Counseled the patient about the recommended dietary allowance of 1000 mg of Calcium & 600 IU of vitamin D. The patient was instructed to perform monthly self-breast exams and to schedule an annual exam in a year; All questions answered and the patient verbalized understanding. Instructed the patient to schedule annual exam in a year (2) Postcoital bleeding: Code(s): N93.0 - Postcoital and contact bleeding Category: Medical Plan: GC/CT taken. Discussed with the patient the differential diagnosis of post coital bleeding including but not limited to, endocervical/endometrial pathology including but not limited to hyperplasia, cancer, polyps, infection and other causes; co testing up-to-date, recommended ultrasound to evaluate the endometrial stripe; instructions given the patient to schedule a 2 week ultrasound follow-up appointment will review the ultrasound and proceed with endometrial sampling versus hysteroscopy D&C polypectomy depending on the ultrasound findings. All questions answered, the patient verbalized understanding and agreed with the plan. Orders: Orders CT NG by PCR Today N93.0 - Postcoital and contact bleeding US pelvic and transvaginal Today N93.0 - Postcoital and contact bleeding Coding Level of Care Code Est Pt Prev Care 40-64y(16511) Diagnoses Well woman exam Z01.419 Postcoital bleeding N93.0
[2024-01-27 11:46] VITALS: BP 132/72; BMI 35.4
== END 2024-01-27 12:09 | disposition home or self-care (01) ==
PROVIDERS: PCP Registered Nurse; Referring Provider Registered Nurse; Visit Provider Obstetrics & Gynecology
DX: Z01.419 Encounter for gynecological examination (general) (routine) without abnormal findings (principal); N93.0 Postcoital and contact bleeding
CPT/HCPCS: 99396

== ENCOUNTER 2024-01-27 11:36 | Outpatient (REF) | payer MEDICAID, SELFPAY ==
[2024-01-28 05:21] LABS: CT PCR NOT DETECTED (Not Detect.); NG PCR NOT DETECTED (Not Detect.)
== END 2024-01-27 11:37 | disposition home or self-care (01) ==
LOC: HO.LNP 11:36
PROVIDERS: Visit Provider Obstetrics & Gynecology
DX: Z01.419 Encounter for gynecological examination (general) (routine) without abnormal findings (principal); N93.0 Postcoital and contact bleeding
CPT/HCPCS: 0353U; 99396

== ENCOUNTER 2024-01-30 12:53 | Outpatient (REF) | payer MEDICAID, SELFPAY ==
--- NOTE | ~2024-01-30 | US_ITS ---
EXAMINATION: US PELVIS COMPLETE CLINICAL INFORMATION: Postcoital bleeding COMPARISON: Pelvic ultrasound 10/16/2018 TECHNIQUE: Transabdominal and transvaginal imaging was performed. FINDINGS: The uterus is of normal size and echogenicity measuring 6.1 x 3.1 x 2.8 cm. A regular homogeneous endometrium is identified measuring 0.2 cm. Nabothian cysts in the cervix. Tiny 1 cm intramural myoma in the left body of the uterus decreased from prior previously 1.3 cm. Trace fluid in the endometrial canal. The right ovary is unremarkable and measures 1.3 x 1.1 x 1.5 cm for a volume of 1.2 mL. The left ovary was not identified sonographically. No adnexal mass. There is no pelvic free fluid. US/US pelvic and transvaginal IMPRESSION: 1. Tiny 1 cm intramural myoma in the left body of the uterus decreased in size from prior. 2. Trace fluid in the endometrial canal. 3. Unremarkable sonographic appearance of the right ovary. The left ovary was not identified sonographically. No adnexal mass.
== END 2024-01-30 12:54 | disposition home or self-care (01) ==
LOC: HO.US 12:53
PROVIDERS: PCP Registered Nurse; Visit Provider Obstetrics & Gynecology
DX: N93.0 Postcoital and contact bleeding (principal)
CPT/HCPCS: 76830; 76856

== ENCOUNTER 2024-02-19 10:39 | Outpatient (REF) | payer MEDICAID, SELFPAY | END 2024-02-19 10:40 | disposition home or self-care (01) | LOC: HO.LNP 10:39 | PROVIDERS: PCP Registered Nurse; Visit Provider Obstetrics & Gynecology | DX: N93.0 Postcoital and contact bleeding (principal); D25.9 Leiomyoma of uterus, unspecified | CPT/HCPCS: 58100; 88305 ==

== ENCOUNTER 2024-02-19 10:39 | Outpatient (AMB) | payer MEDICAID, SELFPAY ==
--- NOTE | 2024-02-19 10:49 | A.OFFVIS_ITS ---
Vital Signs 02/19/24 10:50 Height 5 ft 3 in Weight 198 lb 6.656 oz BMI 35.1 BP 120/70 Intake Visit Reasons: US follow up Allergies citalopram Allergy (Verified 01/27/24 11:53) facial tic methocarbamol Adverse Reaction (Intermediate, Verified 01/27/24 11:53) insomnia HPI Comments Details: Presenting for ultrasound follow-up for recurrent postcoital bleeding. Co testing done in 2021 was negative GC/CT was negative Mammogram was BI-RADS 1 in 01/13 Pelvic ultrasound done recently showed the following: The uterus is of normal size and echogenicity measuring 6.1 x 3.1 x 2.8 cm. A regular homogeneous endometrium is identified measuring 0.2 cm. Nabothian cysts in the cervix. Tiny 1 cm intramural myoma in the left body of the uterus decreased from prior previously 1.3 cm. Trace fluid in the endometrial canal. The right ovary is unremarkable and measures 1.3 x 1.1 x 1.5 cm for a volume of 1.2 mL. The left ovary was not identified sonographically. No adnexal mass. There is no pelvic free fluid. [facility] Medical History DVT (deep venous thrombosis) COVID-19 vaccine series completed GERD (gastroesophageal reflux disease) Elevated cholesterol HTN (hypertension) Diabetes mellitus Tachycardia Surgical History S/P laparoscopic cholecystectomy (07/11/21) History of endometrial ablation H/O colonoscopy Hx of dilation and curettage Hx of hemorrhoidectomy History of right knee surgery H/O tubal ligation Family History Mother Uterine cancer Father Prostate cancer Family/Other History of breast cancer Family/Other Ovarian cancer Brother Prostate cancer Social History Household Members: Spouse Household Members Other:: son Housing: Apartment Are you a primary physician locums urgent care to a significant other at home: No Do you presently have visiting nurse or other home services: No Alcohol intake: never Patient Tobacco Use Status: Never used Tobacco Current occupational status: unemployed Sexual orientation: Straight/Heterosexual Gender identity: Female Female Reproductive History Menstrual Age of Menarche: 14 Physical Exam Vital Signs: Last Vital Signs BP 120/70 02/19/24 10:50 BMI result Body Mass Index 35.1 Office Procedures Endometrial Biopsy Details: The patient was counseled regarding the indication and benefits of endometrial sampling to rule out endometrial pathology including not limited to endometrial hyperplasia or endometrial cancer and others; The alternatives (Either do nothing vs. hysteroscopy D&C) & the risks were discussed with the patient including but not limited: pain, uterine perforation, bleeding, infection, possible injury to bladder, bowel, ureter, possible need for blood transfusion with all its possible risks. The patient verbalized understanding all questions answered and signed consent. The patient was placed into the dorsal lithotomy position; a speculum was inserted in the vagina. Using aseptic technique for the procedure, the cervix was cleansed with Betadine. The anterior lip of the cervix was grasped with a single tooth tenaculum. The uterus was sounded to 7 cm with a 4 mm Pipelle was used. Tissues samples were obtained and placed in formalin, in a patient labeled container and sent to the pathology department. At the end of the procedure, there was minimal bleeding noted The patient tolerated the procedure well and was discharged in good condition with the following instructions: Nothing in the vagina until the bleeding stops. No sex until the bleeding stops, to call if any of the following occurs: fever (>100.4), flu-like symptoms, abdominal pain, heavy bleeding, four smelling vaginal discharge. The patient was instructed to schedule a Follow up appointment in 2 weeks to discuss pathology results of the biopsy and treatment options. This note was generated with a voice recognition program. Some errors may have been overlooked during the review of this note. Sometimes these errors may affect the content or meaning of a given sentence. [id number] Biopsy Assessment & Plan Assessment & Plan (1) Postcoital bleeding: Comment: History of endometrial ablation Code(s): N93.0 - Postcoital and contact bleeding Category: Medical Plan: Since the patient had multiple episodes of postcoital bleeding, although endometrial stripe is 2 mm with endometrial fluid present endometrial cavity, explained to the patient in spite of the high negative predictive value because of the recurrent episodes of vaginal bleeding, I recommend and EMB to rule out endometrial pathology including endometrial hyperplasia and/or malignancy. All questions answered, the patient verbalized understanding and agreed with the plan. EMB done, see procedure note (2) Uterine myoma: Code(s): D25.9 - Leiomyoma of uterus, unspecified Category: Medical Plan: Discussed with the patient the findings on pelvic ultrasound & the risk of myosarcoma; discussed with the patient the options of treatment including expectant management versus hysterectomy; the pros and cons, risks benefits of each approach were discussed with the patient including the fact that in cases of myosarcoma, surgical treatment can lead to early diagnosis and positively affects the prognosis; after further discussion, the patient decided to proceed with expectant management. Will repeat pelvic ultrasound periodically. Instructions given to patient to call in case any of the following occurs: pressure symptoms, abnormal uterine bleeding, pelvic pain; and to schedule a future office follow-up appointment for reassessment and to order a repeat ultrasound . All questions answered, the patient verbalized understanding and agreed with the plan . Orders: Orders AMB Endometrial Biopsy Today N93.0 - Postcoital and contact bleeding Coding Level of Care Code Procedure Only Diagnoses Postcoital bleeding N93.0 Uterine myoma D25.9 CPT Codes Endometrial Biopsy - CPT: 24266-[id number] Biopsy ([id number])
[2024-02-19 10:50] VITALS: BP 120/70; BMI 35.1
== END 2024-02-19 11:10 | disposition home or self-care (01) ==
PROVIDERS: PCP Registered Nurse; Visit Provider Obstetrics & Gynecology
DX: D25.9 Leiomyoma of uterus, unspecified (principal); N93.0 Postcoital and contact bleeding
CPT/HCPCS: 58100

== ENCOUNTER 2024-03-02 09:55 | Outpatient (AMB) | payer MEDICAID, SELFPAY ==
--- NOTE | 2024-03-02 10:22 | A.OFFVIS_ITS ---
Vital Signs 03/02/24 10:26 Height 5 ft 3 in Weight 198 lb 6.656 oz BMI 35.1 BP 122/76 Intake Visit Reasons: pre op Dopster: Dopster Present Allergies citalopram Allergy (Verified 01/27/24 11:53) facial tic methocarbamol Adverse Reaction (Intermediate, Verified 01/27/24 11:53) insomnia Is last menstrual period known: Yes Last menstrual period: 07/20/20 Post menopausal: No Patient : No Do you need a note to return to daycare/school/sports/work: Yes (for surgery on friday) HPI Comments Details: The patient is presenting after endometrial biopsy. The patient has no complaints, no vaginal bleeding, no feverishness chills or abdominal pain. The endometrial biopsy pathology report showed the following: Endometrium, biopsy: Scant poorly preserved endometrial, endocervical and squamous epithelium; abundant mucoinflammatory material; no overt atypia identified. See comment. Comment: Recommend repeat sampling, as clinically appropriate [facility] Medical History DVT (deep venous thrombosis) COVID-19 vaccine series completed GERD (gastroesophageal reflux disease) Elevated cholesterol HTN (hypertension) Diabetes mellitus Tachycardia Surgical History S/P laparoscopic cholecystectomy (07/11/21) History of endometrial ablation H/O colonoscopy Hx of dilation and curettage Hx of hemorrhoidectomy History of right knee surgery H/O tubal ligation Family History Mother Uterine cancer Father Prostate cancer Family/Other History of breast cancer Family/Other Ovarian cancer Brother Prostate cancer Social History Household Members: Spouse Household Members Other:: son Housing: Apartment Are you a primary nurse care manager to a significant other at home: No Do you presently have visiting nurse or other home services: No Alcohol intake: never Patient Tobacco Use Status: Never used Tobacco Current occupational status: unemployed Sexual orientation: Straight/Heterosexual Gender identity: Female Female Reproductive History Menstrual Age of Menarche: 14 Date of last menstrual period: 07/20/20 Total pregnancies: 2 Full term: 2 Review of Systems Card Reports as per HPI and Reports no additional complaints Resp Reports as per HPI and Reports no additional complaints GI Reports as per HPI and Reports no additional complaints Reports as per HPI Physical Exam Vital Signs: Last Vital Signs BP 122/76 03/02/24 10:26 BMI result Body Mass Index 35.1 Const General: cooperative, healthy appearing and comfortable Resp Effort & Inspection: normal respiratory effort Auscultation: clear to auscultation bilaterally Percussion: percussion normal Cardio Palpation: normal PMI Rate: regular rate Rhythm: regular rhythm Heart sounds: no murmurs and no rubs Peripheral pulses: Peripheral pulses 2+ throughout GI Inspection: Yes normal to inspection Palpation (GI): Soft to palpation, nontender, no guarding, not rigid and No hepatosplenomegaly present Percussion: Yes normal to percussion Auscultation: normal bowel sounds Rectal Exam - Female: deferred Assessment & Plan Assessment & Plan (1) Postcoital bleeding: Comment: Recurrent History of endometrial ablation 2 mm endo stripe by US Code(s): N93.0 - Postcoital and contact bleeding Category: Medical Plan: Discussed with the patient the results the EMB pathology; Recommended to the patient that the next step is an endometrial sampling via hysteroscopy D&C possible polypectomy versus endometrial biopsy to r/o endometrial pathology including hyperplasia or cancer. All the pros and cons risks and benefits of each approach were discussed with the patient, endometrial biopsy being less invasive, office procedure with less sensitivity and inability diagnose a polyp and removal versus hysteroscopy done under anesthesia more invasive more sensitive to endometrial cancer and possibility of diagnosing and endometrial polyp with the possibility of polypectomy. All questions were answered pt socrates colin understanding and decided to proceed with hysteroscopy D&C possible polypectomy/myomectomy. Discussed with the patient the procedure , all benefits and risks including but not limited to inability to complete the procedure , insufficient endometrial tissue for a complete evaluation of the endometrial cavity , bleeding, infection, possible need for blood transfusion with all its risk ( HIV,syphilis, Hepatitis, anaphylaxis shock, others..), injury to bladder, rectum, possible need for laparoscopy/laparotomy or hysterectomy. The patient verbalized understanding and signed the consent. Instructions given the patient to stay NPO after midnight the day prior to the procedure and to take only the specific medication (s) discussed the morning of the surgical procedure and to schedule a 2 week postoperative appointment Coding Level of Care Code Est Pt Level 3 (52029) Diagnoses Postcoital bleeding N93.0
[2024-03-02 10:26] VITALS: BP 122/76; BMI 35.1
== END 2024-03-02 11:51 | disposition home or self-care (01) ==
PROVIDERS: PCP Registered Nurse; Visit Provider Obstetrics & Gynecology
DX: N93.0 Postcoital and contact bleeding (principal)
CPT/HCPCS: 99213

== ENCOUNTER → 2024-03-02 09:55 | Outpatient (BNVA) | payer MEDICAID, SELFPAY | PROVIDERS: PCP Registered Nurse; Visit Provider Obstetrics & Gynecology | DX: N93.0 Postcoital and contact bleeding (principal) | CPT/HCPCS: 99212 ==

== ENCOUNTER 2024-03-12 13:32 | Day surgery (SDC) | payer MEDICAID, SELFPAY ==
[2024-03-10 08:26] VITALS: BMI 35.1
--- NOTE | 2024-03-10 09:58 | HO.ANESPROP2 ---
Documented by User: Rita Garza NP 03/10/24 09:58 HPI - Anesthesia Eval Consult details Narrative: 58yo F for D&C Hysteroscopy, possible myomectomy/polypectomy PMFSH Active Problems Active Problems: All Active Problems Uterine myoma (Acute) Postcoital bleeding (Acute) Patellofemoral arthralgia of both knees (Acute) Disc degeneration, lumbar (Acute) Muscle spasm (Acute) Cervical lesion (Acute) Well woman exam (Acute) Sacroiliac joint pain (Acute) Spondylosis of lumbar region without myelopathy or radiculopathy (Acute) Increased frequency of urination (Acute) UTI (urinary tract infection) (Acute) Biliary colic (Acute) Cholelithiasis (Acute) Lumbar radiculopathy, right (Acute) Past Medical History Medical History DVT (deep venous thrombosis) COVID-19 vaccine series completed GERD (gastroesophageal reflux disease) Elevated cholesterol HTN (hypertension) Diabetes mellitus Tachycardia Family History Family History Mother Uterine cancer Father Prostate cancer Family/Other History of breast cancer Family/Other Ovarian cancer Brother Prostate cancer Surgical History Surgical History Hx of breast biopsy S/P laparoscopic cholecystectomy (07/11/21) History of endometrial ablation H/O colonoscopy Hx of dilation and curettage Hx of hemorrhoidectomy History of right knee surgery H/O tubal ligation History of Problems with Anesthesia: No Social History Social History Household Members: Spouse Household Members Other:: son Housing: Apartment Are you a primary rn care transition to a significant other at home: No Do you presently have visiting nurse or other home services: No Alcohol intake: never Patient Tobacco Use Status: Never used Tobacco Use of substances other than those prescribed or required for medical reasons: No Are you DNR?: No Advance Directives: No Advance Directives Information Provided: Yes Current occupational status: unemployed Sexual orientation: Straight/Heterosexual Gender identity: Female Meds Allergies Allergy/AdvReac Type Severity Reaction Status Date / Time citalopram Allergy facial tic Verified 03/12/24 13:45 methocarbamol AdvReac Intermediate insomnia Verified 03/12/24 13:45 Home Medications ?Medication ?Instructions ?Recorded ?Confirmed ?Last Taken ?Type alcohol swabs (BD Alcohol Swabs) 0 pad topical diabetes mellitus 06/22/21 Unknown History lancets 28 gauge (FreeStyle #100 ea 06/22/21 Unknown History Lancets) pantoprazole 40 mg tablet,delayed 40 mg PO BID 06/22/21 03/29/22 03/12/24 07:30 History release pravastatin 10 mg tablet 10 mg PO DAILY 06/22/21 03/29/22 Unknown History metformin 500 mg tablet 500 mg PO BID 07/03/21 03/29/22 Unknown History diltiazem HCl 180 mg 2 cap PO DAILY 07/05/21 03/29/22 Unknown History capsule,extended release 24 hr (Cartia XT) losartan 50 mg tablet 1 tab PO DAILY 07/05/21 03/29/22 03/12/24 07:30 History cetirizine 10 mg tablet 10 mg PO DAILY PRN allergies 01/20/23 Unknown History cholecalciferol (vitamin D3) 50 50 mcg PO DAILY 10/02/23 Unknown History mcg (2,000 unit) capsule (Vitamin D3) docusate sodium 100 mg capsule 100 mg PO BEDTIME PRN constipation 10/02/23 Unknown History fluticasone propionate 50 1 spray intranasal BID PRN Allergy 10/02/23 Unknown History mcg/actuation nasal Symptoms spray,suspension ketotifen fumarate 0.025 % (0.035 1 drp ophthalmic (eye) BID PRN 10/02/23 Unknown History %) eye drops allergies Exam Height,Weight and Vital Signs: Height 5 ft 3 in Weight 89.811 kg Assessment and Plan Assessment Anesthesia Assessment: Chart Reviewed Final Anesthetic Review History of Problems with Anesthesia: No Documented by User: Cara Márquez MD 03/12/24 14:32 PMFSH Past Medical History Medical History DVT (deep venous thrombosis) COVID-19 vaccine series completed GERD (gastroesophageal reflux disease) Elevated cholesterol HTN (hypertension) Diabetes mellitus Tachycardia Family History Family History Mother Uterine cancer Father Prostate cancer Family/Other History of breast cancer Family/Other Ovarian cancer Brother Prostate cancer Family history of problems with anesthesia: No Surgical History Surgical History Hx of breast biopsy S/P laparoscopic cholecystectomy (07/11/21) History of endometrial ablation H/O colonoscopy Hx of dilation and curettage Hx of hemorrhoidectomy History of right knee surgery H/O tubal ligation Social History Social History Household Members: Spouse Household Members Other:: son Housing: Apartment Are you a primary rn care transition to a significant other at home: No Do you presently have visiting nurse or other home services: No Alcohol intake: never Patient Tobacco Use Status: Never used Tobacco Use of substances other than those prescribed or required for medical reasons: No Are you DNR?: No Advance Directives: No Advance Directives Information Provided: Yes Current occupational status: unemployed Sexual orientation: Straight/Heterosexual Gender identity: Female Meds Allergies Allergy/AdvReac Type Severity Reaction Status Date / Time citalopram Allergy facial tic Verified 03/12/24 13:45 methocarbamol AdvReac Intermediate insomnia Verified 03/12/24 13:45 Home Medications ?Medication ?Instructions ?Recorded ?Confirmed ?Last Taken ?Type alcohol swabs (BD Alcohol Swabs) 0 pad topical diabetes mellitus 06/22/21 Unknown History lancets 28 gauge (FreeStyle #100 ea 06/22/21 Unknown History Lancets) pantoprazole 40 mg tablet,delayed 40 mg PO BID 06/22/21 03/29/22 03/12/24 07:30 History release pravastatin 10 mg tablet 10 mg PO DAILY 06/22/21 03/29/22 Unknown History metformin 500 mg tablet 500 mg PO BID 07/03/21 03/29/22 Unknown History diltiazem HCl 180 mg 2 cap PO DAILY 07/05/21 03/29/22 Unknown History capsule,extended release 24 hr (Cartia XT) losartan 50 mg tablet 1 tab PO DAILY 07/05/21 03/29/22 03/12/24 07:30 History cetirizine 10 mg tablet 10 mg PO DAILY PRN allergies 01/20/23 Unknown History cholecalciferol (vitamin D3) 50 50 mcg PO DAILY 10/02/23 Unknown History mcg (2,000 unit) capsule (Vitamin D3) docusate sodium 100 mg capsule 100 mg PO BEDTIME PRN constipation 10/02/23 Unknown History fluticasone propionate 50 1 spray intranasal BID PRN Allergy 10/02/23 Unknown History mcg/actuation nasal Symptoms spray,suspension ketotifen fumarate 0.025 % (0.035 1 drp ophthalmic (eye) BID PRN 10/02/23 Unknown History %) eye drops allergies Exam Airway Mallampati Class: II TM Dist: >3cm Neck ROM: Full Heart: rrr Lungs: cta Assessment and Plan Assessment Anesthesia Assessment: Anesthesia Plan Discussed Final Anesthetic Review Family History of Problems with Anesthesia: No NPO: Yes ASA Class: III Final Preanesthetic Review: No Changes in Pt Med Stat, Meds/Allgs Chart Reviewed, Consent Obtained/Reviewed and Anes Risks/Benef Reviewed Patient Risk: Intermediate Procedure Risk: Low Anesthetic Plan Anesthetic Plan: GA Disposition: Standard PACU
[2024-03-12 13:49] VITALS: BMI 35.6
[2024-03-12 14:04] VITALS: BP 167/86; PULSE 74; RESP 15; TEMP 36.1; O2SAT 98
[2024-03-12] MEDS: Lactated Ringers 1,000 ML 100 ML IVCONT (14:05)
[2024-03-12 14:09] LABS: Glucose, Whole Blood 132 mg/dL (60-115)
--- NOTE | 2024-03-12 14:10 | MHC.SHP ---
Pre-Procedural Eval Section A - 24 Hr Update-Section A only Date of Service: 03/12/24 The patient is an INPATIENT: No Changes since office visit: No Cold of Flu in the past 2 weeks, No New Medical Problems, No Changes in Medication and No Patient answered all questions The patient has been examined within 24 hours of the surgical procedure. The History & Physical has been completed within 30 days and I have reviewed it.: Yes Section B - Complete if H&P > 30 days Chief Complaint: Postcoital and contact bleeding Allergies: Allergies Allergy/AdvReac Type Severity Reaction Status Date / Time citalopram Allergy facial tic Verified 03/12/24 13:45 methocarbamol AdvReac Intermediate insomnia Verified 03/12/24 13:45 Plan Diagnosis/Plan: Unchanged I have reviewed the history and physical and performed a pertinent physical examination on my patient. No changes have occurred unless specified. Time Spent With Patient Time: Total time managing care of this patient today ____ minutes.
--- NOTE | 2024-03-12 15:07 | PM.OP ---
Brief Operative Note Date of Service: 03/12/24 Pre-op diagnosis: Postcoital bleeding Post-op diagnosis: same (Endocervical lesion rule out myoma, normal endometrial cavity) Procedure: Hysteroscopy D&C, endocervical curettage and excision of endocervical lesion Surgeon: Jean Quinn MD Anesthesia: GLMA Was an Medical Device Assembler used for this Procedure?: No Estimated blood loss (mL): 0 Pathology: other (Endometrial Scrapping, Endocervical lesion, endocervical curettage) Condition: stable Disposition: PACU
[2024-03-12 15:10] VITALS: BP 141/70; PULSE 82; RESP 12; TEMP 36.1; O2SAT 97
--- NOTE | 2024-03-12 15:10 | P.OP_ITS ---
Operative Note Operative Note Date of Service: 03/12/24 Narrative: Preop Diagnosis: Post coital bleeding Operation: Diagnostic Hysteroscopy, Dilataion & Curettage, excision of endocervical lesion, endocervical curettage Post Op Diagnosis: Endocervical lesion rule out myoma, Normal endometrial cavity QBL: Minimal Anesthesia: GLMA Surgeon: Jean Quinn MD Dynamite Cartridge Crimper: None Complication: None Pathology: Endometrial Scrapings, ECC, endocervical lesion Procedure: The patient was put in the dorsal lithotomy position, scrubbed, and draped in the usual manner. A sterile speculum was inserted in the patient's vagina. The anterior lip of the cervix was grasped with a single tooth tenaculum . Inspection revealed endocervical lesion, using Allis clamp the lesion was grasped and using cautery it was excised with no complication. The cervix was dilated up to 5 mm, then the scope was inserted in the patient's uterus. Inspection revealed Normal endometrial cavity. The Myosure Reach device was used; the scope was removed from the endometrial cavity , sharp curettings was carried on with minimal to moderate amount of tissues retrieved. Endocervical curettage followed. At the end of the procedure, all instruments were taken out of the patient uterine and vaginal cavity. The single tooth tenaculum was removed and homeostasis was assured using pressure,. The patient tolerated the procedure well and was transferred to the PACU in a stable condition.
[2024-03-12 15:15] VITALS: BP 152/80; PULSE 71; RESP 14; O2SAT 97
[2024-03-12 15:20] VITALS: BP 147/78; PULSE 67; RESP 15; O2SAT 95
[2024-03-12 15:25] VITALS: BP 169/82; PULSE 82; RESP 16; O2SAT 95
[2024-03-12 15:40] VITALS: BP 158/63; PULSE 75; RESP 16; TEMP 36.1; O2SAT 95
== END 2024-03-12 15:57 | disposition home or self-care (01) ==
PROVIDERS: PCP Registered Nurse; Visit Provider Obstetrics & Gynecology
PROC: 0UDB8ZZ Extraction of Endometrium, Via Natural or Artificial Opening Endoscopic (ICD-10-PCS; CPT 58558; principal; 2024-03-12 15:00)
DX: N93.9 Abnormal uterine and vaginal bleeding, unspecified (principal); N88.9 Noninflammatory disorder of cervix uteri, unspecified; I10 Essential (primary) hypertension; E11.9 Type 2 diabetes mellitus without complications; E78.00 Pure hypercholesterolemia, unspecified; K21.9 Gastro-esophageal reflux disease without esophagitis; R00.0 Tachycardia, unspecified; Z98.51 Tubal ligation status; Z86.718 Personal history of other venous thrombosis and embolism; Z88.8 Allergy status to other drugs, medicaments and biological substances; Z56.0 Unemployment, unspecified
CPT/HCPCS: 58558; 82947; 88305; J1100; J2250; J2405; J2704; J3010

== ENCOUNTER → 2024-03-12 13:32 | Outpatient (BNV) | payer MEDICAID, SELFPAY | PROVIDERS: PCP Registered Nurse; Visit Provider Obstetrics & Gynecology | DX: N93.0 Postcoital and contact bleeding (principal) | CPT/HCPCS: 58558 ==

== ENCOUNTER 2024-03-23 15:54 | Outpatient (AMB) | payer MEDICAID, SELFPAY ==
[2024-03-23 15:55] VITALS: BP 132/70; BMI 35.4
--- NOTE | 2024-03-23 15:55 | A.OFFVIS_ITS ---
Vital Signs 03/23/24 15:55 Height 5 ft 3 in Weight 200 lb BMI 35.4 BP 132/70 Intake Visit Reasons: post op Radiation Protection Engineer Required: No Information Interpreted: non-clinical & clinical Accompanied by: Self / Same As Patient Allergies citalopram Allergy (Verified 03/23/24 16:02) facial tic methocarbamol Adverse Reaction (Intermediate, Verified 03/23/24 16:02) insomnia HPI Comments Details: The patient is presenting post hysteroscopy D&C for recurrent postmenopausal bleeding no complaints minimal vaginal bleeding no feverishness chills or abdominal pain. The pathology showed the following: A. 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 B. Endometrium, curettage: Scant fragments of benign inactive endometrium and benign smooth muscle which may represent a portion of a benign leiomyoma. C. Endocervix, curettage: Squamous epithelium with focal mild atypia, suspicious for low-grade squamous intraepithelial lesion (ARISTIDES 1), benign endocervical glandular epith elium, and rare fragments of benign endo myometrium PFSH Medical History DVT (deep venous thrombosis) COVID-19 vaccine series completed GERD (gastroesophageal reflux disease) Elevated cholesterol HTN (hypertension) Diabetes mellitus Tachycardia Surgical History Hx of breast biopsy S/P laparoscopic cholecystectomy (07/11/21) History of endometrial ablation H/O colonoscopy Hx of dilation and curettage Hx of hemorrhoidectomy History of right knee surgery H/O tubal ligation Family History Mother Uterine cancer Father Prostate cancer Family/Other History of breast cancer Family/Other Ovarian cancer Brother Prostate cancer Social History Household Members: Spouse Household Members Other:: son Housing: Apartment Are you a primary rn coronary care unit to a significant other at home: No Do you presently have visiting nurse or other home services: No Alcohol intake: never Patient Tobacco Use Status: Never used Tobacco Current occupational status: unemployed Sexual orientation: Straight/Heterosexual Gender identity: Female Female Reproductive History Menstrual Age of Menarche: 14 Review of Systems Const All systems reviewed & are unremarkable except as noted in HPI and below Reports as per HPI and Reports no additional complaints GI Reports no additional complaints Reports no additional complaints Physical Exam Vital Signs: Last Vital Signs BP 132/70 03/23/24 15:55 BMI result Body Mass Index 35.4 Assessment & Plan Assessment & Plan (1) Myoma: Comment: In the endocervix status post hysteroscopic myomectomy Code(s): D21.9 - Benign neoplasm of connective and other soft tissue, unspecified Category: Medical Plan: Discussed with the patient the intraoperative finding endocervical lesion status post resection, pathology showing benign leiomyoma. Instructions given the patient to call in case of recurrence of her postcoital bleeding. (2) Dysplasia of cervix, low grade (ARISTIDES 1): Comment: On ECC Code(s): N87.0 - Mild cervical dysplasia Category: Medical Plan: Discussed with the patient the pathology results of the colposcopy biopsies & endocervical curettage ( mild dysplasia-ARISTIDES 1). Discussed with the patient the sensitivity specificity, positive and negative predictive value in detecting cervical cancer in addition discussed the regression, persistence and progression rates. Recommended co-testing in 12 months, if cytology and or HPV are abnormal will proceed was colposcopy biopsy and endocervical curettage, if lesions gets worse or stays persistent for 2 years will proceed with loop electric excision procedure. Instructions given to the patient to schedule a co test appointment in 1 year. All questions answered the patient verbalized understanding. (3) Postcoital bleeding: Comment: Recurrent Code(s): N93.0 - Postcoital and contact bleeding Category: Medical Plan: Discussed with the patient the results of the hysteroscopic intraoperative findings and the results of the pathology . Discussed with the patient the sensitivity, specificity, positive and negative predictive value, of endometrial biopsy in detecting endometrial pathology including but not limited to endometrial hyperplasia, cancer and other pathology; instructed the patient to call in case vaginal bleeding bleeding recurs, the next step will be to proceed with further endometrial sampling evaluation to rule out endometrial/endocervical pathology. All questions answered and the patient verbalized understanding and agreed with the plan. Coding Level of Care Code Est Pt Level 3 (69937) Diagnoses Myoma D21.9 Dysplasia of cervix, low grade (ARISTIDES 1) N87.0 Postcoital bleeding N93.0
== END 2024-03-23 16:22 | disposition home or self-care (01) ==
LOC: HO.HWS 15:54
PROVIDERS: PCP Registered Nurse; Visit Provider Obstetrics & Gynecology
DX: D21.9 Benign neoplasm of connective and other soft tissue, unspecified (principal); N87.0 Mild cervical dysplasia; N93.0 Postcoital and contact bleeding
CPT/HCPCS: 99213

== ENCOUNTER → 2024-03-23 15:54 | Outpatient (BNVA) | payer MEDICAID, SELFPAY | PROVIDERS: PCP Registered Nurse; Visit Provider Obstetrics & Gynecology | DX: Z09 Encounter for follow-up examination after completed treatment for conditions other than malignant neoplasm (principal); D21.9 Benign neoplasm of connective and other soft tissue, unspecified; N87.0 Mild cervical dysplasia; N93.0 Postcoital and contact bleeding; Z98.51 Tubal ligation status | CPT/HCPCS: 99212 ==

== ENCOUNTER 2024-04-07 15:29 | Outpatient (AMB) | payer MEDICAID, SELFPAY ==
--- NOTE | 2024-04-07 15:50 | A.OFFVIS_ITS ---
Vital Signs 04/07/24 15:54 Height 5 ft 3 in Weight 198 lb 6.656 oz BMI 35.1 Intake Visit Reasons: vaginal bleeding Allergies citalopram Allergy (Verified 03/23/24 16:02) facial tic methocarbamol Adverse Reaction (Intermediate, Verified 03/23/24 16:02) insomnia HPI Comments Details: Presenting with recurrence of her vaginal bleeding. Patient was seen few weeks ago for post coital bleeding the following workup was done: Last co testing was in 01/11 was negative Pelvic ultrasound in 02/10 showed the following: The uterus is of normal size and echogenicity measuring 6.1 x 3.1 x 2.8 cm. A regular homogeneous endometrium is identified measuring 0.2 cm. Nabothian cysts in the cervix. Tiny 1 cm intramural myoma in the left body of the uterus decreased from prior previously 1.3 cm. Trace fluid in the endometrial canal. The right ovary is unremarkable and measures 1.3 x 1.1 x 1.5 cm for a volume of 1.2 mL. The left ovary was not identified sonographically. No adnexal mass. There is no pelvic free fluid. This was followed by endometrial biopsy in the office which showed the following: Endometrium, biopsy: Scant poorly preserved endometrial, endocervical and squamous epithelium; abundant mucoinflammatory material; no overt atypia identified. See comment. Comment: Recommend repeat sampling, as clinically appropriate So hysteroscopy D&C , ECC and excision of endocervical lesion was done in 03/15, the pathology showed the following A. 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 B. Endometrium, curettage: Scant fragments of benign inactive endometrium and benign smooth muscle which may represent a portion of a benign leiomyoma. C. Endocervix, curettage: Squamous epithelium with focal mild atypia, suspicious for low-grade squamous intraepithelial lesion (ARISTIDES 1), benign endocervical glandular epith elium, and rare fragments of benign endo myometrium Since then the patient has been bleeding. [facility] Medical History DVT (deep venous thrombosis) COVID-19 vaccine series completed GERD (gastroesophageal reflux disease) Elevated cholesterol HTN (hypertension) Diabetes mellitus Tachycardia Surgical History Hx of breast biopsy S/P laparoscopic cholecystectomy (07/11/21) History of endometrial ablation H/O colonoscopy Hx of dilation and curettage Hx of hemorrhoidectomy History of right knee surgery H/O tubal ligation Family History Mother Uterine cancer Father Prostate cancer Family/Other History of breast cancer Family/Other Ovarian cancer Brother Prostate cancer Social History Household Members: Spouse Household Members Other:: son Housing: Apartment Are you a primary reservoir caretaker to a significant other at home: No Do you presently have visiting nurse or other home services: No Alcohol intake: never Patient Tobacco Use Status: Never used Tobacco Current occupational status: unemployed Sexual orientation: Straight/Heterosexual Gender identity: Female Female Reproductive History Menstrual Age of Menarche: 14 Review of Systems Const All systems reviewed & are unremarkable except as noted in HPI and below Physical Exam Vital Signs: BMI result Body Mass Index 35.1 General: Yes no CVA tenderness External Female Exam: normal external appearance and normal appearance of the urethra Speculum Exam - Vagina: normal appearance of the vagina, normal palpation, no lesions and no masses Speculum Exam - Cervix: normal appearance of the cervix, normal palpation, no lesions, no masses and nontender Bimanual exam- vagina & uterus: normal bimanual exam, normal palpation, uterine size normal, normal palpation, uterine shape normal, No Cervical tenderness present and non-tender Bimanual Exam- Adnexa, other: normal adnexae Back/Spine/Pelvis Back: no CVA tenderness Assessment & Plan Assessment & Plan (1) Postmenopausal bleeding: Comment: ARISTIDES 1 on ECC Uterine myoma Recurrent postmenopausal bleeding Code(s): N95.0 - Postmenopausal bleeding Category: Medical Plan: Discussed with the patient the above workup and options of treatment , the patient is requesting surgical management. Discussed with the patient the different types of hysterectomies including, vaginal, laparoscopic assisted vaginal, robotic assisted laparoscopic,& abdominal with BSO. All pros, cons, r/b of each approach were discussed the patient including evidence that morbidity is less and recovery is shorter with minimally invasive approaches to hysterectomy. Discussed with the patient the lack of availability of the robot Raptri robot and/or minimally invasive principal process engineer specialist at [facility]. Will refer to [facility] minimally invasive government relations manager . Instructed the patient to call our office back in case a referral appointment is not scheduled, missed or canceled so that we will assist on rescheduling another appointment, the patient verbalized understanding agreed with the plan. Coding Level of Care Code Est Pt Level 3 (76382) Diagnoses Postmenopausal bleeding N95.0
[2024-04-07 15:54] VITALS: BMI 35.1
== END 2024-04-08 09:39 | disposition home or self-care (01) ==
LOC: HO.HWS 15:29
PROVIDERS: PCP Registered Nurse; Visit Provider Obstetrics & Gynecology
DX: N95.0 Postmenopausal bleeding (principal)
CPT/HCPCS: 99213

== ENCOUNTER → 2024-04-07 15:29 | Outpatient (BNVA) | payer MEDICAID, SELFPAY | PROVIDERS: PCP Registered Nurse; Visit Provider Obstetrics & Gynecology | DX: N95.0 Postmenopausal bleeding (principal) | CPT/HCPCS: 99212 ==

== ENCOUNTER 2024-12-30 14:58 | Outpatient (REF) | payer MEDICAID, SELFPAY ==
--- NOTE | ~2024-12-30 | XR_ITS ---
EXAMINATION: XR LUMBOSACRAL SPINE CLINICAL INFORMATION: acute worsening LBP x one mos with b/l hip pain COMPARISON: 06/22/2014. MRI lumbar 01/02/2018. TECHNIQUE: Three views of the lumbosacral spine. FINDINGS: Moderate levoconvex scoliosis, worsened since 2013. [place] at L2. There is a rotatory component. There is a normal lordosis. There is no definite subluxation. There is no fracture, compression deformity, or suspicious bone lesion. There is moderate to severe multilevel disc degeneration, with disc vacuum phenomenon at all levels. There are large right laterally and anteriorly projecting disc osteophytes, most notable spanning L2-3, and L3-4. There are sclerotic type endplate changes present at L1 to, L2-3, and L3-4. Multilevel degenerative facet changes present throughout. The sacrum appears intact. There are mild to moderate arthritic changes in the right than left SI joints. There are cholecystectomy clips. Soft tissues otherwise normal. XR/XR lumbar spine 2-3V IMPRESSION: 1. Worsening levoconvex scoliosis, now moderate. 2. Worsening multilevel moderate to severe spondylosis. Electronically signed by: Les Ro MD 12/30/2024 03:34 PM EDT
--- NOTE | ~2024-12-30 | XR_ITS ---
EXAMINATION: XR HIP, LEFT CLINICAL INFORMATION: acute worsening LBP x one mos with b/l hip pain COMPARISON: None available. TECHNIQUE: Two views of the left hip. FINDINGS: No fracture. Alignment is anatomic. Hip joint space is maintained. Soft tissues are unremarkable. XR/XR hip LT min 2V IMPRESSION: Normal left hip. Electronically signed by: Les Ro MD 12/30/2024 03:28 PM EDT
--- NOTE | ~2024-12-30 | XR_ITS ---
EXAMINATION: XR HIP, RIGHT CLINICAL INFORMATION: acute worsening LBP x one mos with b/l hip pain COMPARISON: 10/25/2019. TECHNIQUE: Two views of the right hip. FINDINGS: No fracture. Alignment is anatomic. Hip joint space is maintained. Soft tissues are unremarkable. XR/XR hip RT min 2V IMPRESSION: Normal right hip. Electronically signed by: Les Ro MD 12/30/2024 03:29 PM EDT
--- OUTSIDE RECORDS SUMMARY | 2024-12-30 17:32 | XMS_ITS | Encounter Summary ---
Author Organization [employer] Address [address] [place] [address] [address] [place] [address] Care Team Providers Care Certified Optician Name Role Phone Tish Fontana CONCIERGE MANAGER Primary Care Provider [phone] Reason for Referral * Consultation (Routine) - Pending Review Specialty Diagnoses / Procedures Referred By Letitia goodrich Referred To Contact Physiatry Diagnoses Acute bilateral low back pain with right-sided sciatica Emely Valerio DO [address] [place] [address] Phone: tel: fax: Referral ID Status Reason Start Date Expiration Date Visits Requested Visits Authorized [id number] Pending Review Specialty Services Required 12/30/2024 12/30/2025 1 1 Reason for Visit * Reason Comments Back Pain Hip Pain Encounter Details Date Type Department Care Team (Late st Contact Info) Description 12/30/2024 2:40 PM EDT Office Visit [facility] [address] [place] [address] Emely Valerio DO [address] [place], [place] [id number] Acute bilateral low back pain with right-sided sciatica (Primary Dx); Bilateral hip pain; COVID-19 virus infection Social History Tobacco Use Types Packs/Day Years Used Date Smoking Tobacco: Never Smokeless Tobacco: Never Depression Answer Date Recorded Patient Health Questionnaire-9 Score 8 01/14/2024 Patient Health Questionnaire-9 Score 8 01/14/2024 Last PHQ-9: Questionnaire Data Not on file 0 01/14/2024 Housing Stability Answer Date Recorded What is your housing situation today? I have housing today, but I am worried about losing housing in the future 01/14/[address] you li ve. Do you have problems with any of the following? None of the above 01/14/2024 Food Insecurity Answer Date Recorded Within the past 12 months, y ou worried that your food would run out before you got money to buy more: Never True 01/14/2024 Within the past 12 months,th e food you bought just didn't last and you didn't have enough money to get more: Never True Transportation Answer Date Recorded In the past 12 months, has l ack of transportation kept you from medical appts, meetings, work or from getting things needed for daily living? No 01/14/2024 Utilities Answer Date Recorded In the past 12 months, has t he electric, gas, oil or water company threatened to shut off services in your home? No 01/14/2024 Depression Answer Date Recorded Patient Health Questionnaire-2 Score 2 01/14/2024 Comments Unknown Sex and Gender Information Value Date Recorded Sex Assigned at Female 07/22/2022 10:14 AM EDT Legal Sex Female 10:14 AM EDT Gender Identity Female 07/22/2022 10:14 AM EDT Sexual Orientation Straight 07/22/2022 10 :14 AM EDT documented as of this encounter Last Filed Vital Signs Vital Sign Reading Time Taken Comments Blood Pressure 152/85 12/30/2024 2:25 PM EDT Pulse 85 12/30/2024 2:25 PM EDT Temperature 36.6 ??C (97.8 ??F) 12/30/2024 2:25 PM ED T Respiratory Rate 18 12/30/2024 2:25 PM EDT Oxygen Saturation 95% 12/30/2024 2:25 PM EDT Inhaled Oxygen Concentration - - Weight 88.3 kg (194 lb 9.6 oz) 12/30/2024 2:25 P M EDT Height - - Body Mass Index 34.47 11/05/2024 2:00 PM EST documented in this encounter Progress Notes * Emely Valerio DO - 12/30/2024 2:40 PM EDT SUBJECTIVE: Lucie Arguelles is a 59 y.o. year old female who presents for sick visit . HPI She comes to [place] c/o back and hip pain. She says that she has scoliosis and has been having worsening back pain for the last mos. She says that she usually takes naprosyn and the pain gets better but not this time. She says that her back pain has been bad for a month. She c/o bad hip pain yesterday which is a little better today. She feels her back pain radiating into the R hip area. She has tried flexeril as well but she got really drowsy when she took two 5mg tabs. She has done PT ~ 4 times for her back pain in the past. She does the stretching exercises that shelearned in PT every day. She has had cortisone injections too, last about 3 years ago but had bad experience. She hasn't had imaging in a long time. She's tried numerous meds for her pain. She used gabapentin but didn't like the way that she felt. She used tramadol which helped in the beginning but stopped working. She's been to pain mgmt at [facility] and [facility]. History provided by: Patient stamp analyst used: No Back Pain The current episode started more than 1 month ago. The problem occurs constantly. The problem has been gradually worsening since onset. The pain is present in the lumbar spine. The pain radiates to the right thigh. The pain is at a severity of 8/10. The pain is severe. The pain is The same all the time. Pertinent negatives include no abdominal pain, bladder incontinence, bowel incontinence, chestpain, dysuria, fever, headaches, numbness, paresthesias, tingling or weakness. Hip Pain Severity: Moderate Onset quality: Sudden Duration: 2 days Timing: Constant Progression: Improving Chronicity: New Associated symptoms: no abdominal pain, no chest pain, no diarrhea, no fever, no headaches, no myalgias, no rash, no shortness of breath and no vomiting Review of Systems Constitutional: Negative for chills and fever. Respiratory: Negative for shortness of breath. Cardiovascular: Negative for chest pain and leg swelling. Gastrointestinal: Negative for abdominal pain, bowel incontinence, diarrhea and vomiting. Genitourinary: Negative for bladder incontinence and dysuria. Musculoskeletal: Positive for arthralgias and back pain. Negative for gait problem and myalgias. Skin: Negative for rash and wound. Neurological: Negative for tingling, weakness, numbness, headaches and paresthesias. Patient Active Problem List Diagnosis Allergic rhinitis Anxiety Curvature of spine Deep venous thrombosis (CMS/HCC) Essential hypertension Fear of flying Gastroesophageal reflux disease Leg length inequality Lumbar radiculopathy Piriformis syndrome of left side Supraventricular tachycardia (CMS/HCC) Type 2 diabetes mellitus without complication (CMS/HCC) Routine health maintenance Uterine myoma Postcoital bleeding Other irritable bowel syndrome Vasomotor symptoms due to menopause Allergies Allergen Reactions Methocarbamol Insomnia Citalopram OBJECTIVE Vitals: 12/30/24 1425 BP: (!) 152/85 BP Location: Right arm Patient Position: Sitting BP Cuff Size: Large adult Pulse: 85 Resp: 18 Temp: 97.8 ??F (36.6 ??C) TempSrc: Temporal SpO2: 95% Weight: 194 lb 9.6 oz (88.3 kg) Physical Exam Constitutional: General: She is not in acute distress. Appearance: Normal appearance. Comments: Mild discomfort Cardiovascular: Rate and Rhythm: Normal rate and regular rhythm. Heart sounds: Normal heart sounds. No murmur heard. Pulmonary: Effort: Pulmonary effort is normal. Breath sounds: Normal breath sounds. No wheezing or rhonchi. Musculoskeletal: Lumbar back: Spasms present. No swelling, deformity, tenderness or bony tenderness. Decreased rangeof motion. Negative right straight leg raise test and negative left straight leg raise test. Comments: She is able to toe and heel walk without difficulty Neurological: General: No focal deficit present. Mental Status: She is alert and oriented to person, place, and time. Cranial Nerves: No cranial nerve deficit. Sensory: Sensation is intact. Motor: No weakness. Gait: Gait is intact. Deep Tendon Reflexes: Reflex Scores: Patellar reflexes are 2+ on the right side and 2+ on the left side. Psychiatric: Mood and Affect: Mood normal. ASSESSMENT/PLAN Diagnoses and all orders for this visit: Acute bilateral low back pain with right-sided sciatica Bilateral hip pain With mm spasm and nml neuro exam, likely mechanical -provided reassurance -referred for L-spine and hip xrays -cont naprosyn prn, alternate with tylenol as needed -treat with medrol taper -change flexeril to baclofen to help with mm spasm -trial diclofenac gel -trial heat therapy -cont daily stretching exercises -referred to physiatry for eval -advised rtc or go to ED if sx worsen or any weakness/loss of sensation, she agrees with plans - XR Lumbar Spine 2-3 Views; Future - XR Hip 2 or 3 Views Left; Future - XR Hip 2 or 3 Views Right; Future - traMADol (Ultram) 50 MG tablet; Take 1 tablet (50 mg) by mouth every 8 (eight) hours if needed for severe pain for up to 5 days. - Referral to Physiatry; Future F/U with PCP as scheduled or sooner prn Current Outpatient Medications: acetaminophen (Tylenol 8 Hour) 650 MG ER tablet, Take 1 tablet (650 mg) by mouth every 8 (eight) hours if needed for mild pain. Do not crush, chew, or split., Disp: 40 tablet, Rfl: 1 Alcohol Swabs (B-D SINGLE USE SWABS REGULAR) pads, USE BEFORE CHECKING BLOOD SUGAR, Disp: 100 each,Rfl: 11 baclofen (Lioresal) 10 MG tablet, Take 1 tablet (10 mg) by mouth if needed in the morning, at noon,and at bedtime for muscle spasms., Disp: 60 tablet, Rfl: 1 cetirizine (ZyrTEC) 10 MG tablet, TAKE ONE TABLET BY MOUTH EVERY DAY NEEDED FOR ALLERGIES, Disp:90 tablet, Rfl: 3 cholecalciferol (D3 Super Strength) 50 MCG (2000 UT) capsule, TAKE ONE CAPSULE BY MOUTH EVERY DAY, Disp: 90 capsule, Rfl: 0 Diclofenac Sodium 1 % gel, Apply 2 g topically if needed in the morning, at noon, in the evening, and at bedtime (pain)., Disp: 150 g, Rfl: 3 dilTIAZem CD (Cardizem CD) 180 MG 24 hr capsule, TAKE TWO CAPSULES BY MOUTH EVERY DAY, Disp: 180 capsule, Rfl: 1 docusate sodium (Colace) 100 MG capsule, TAKE ONE CAPSULE BY MOUTH AT BEDTIME NEEDED FOR CONSTIPATION, Disp: 90 capsule, Rfl: 3 fluticasone (Flonase) 50 MCG/ACT nasal spray, APPLY ONE SPRAY IN EACH NOSTRIL TWICE A DAY NEEDED, Disp: 48 g, Rfl: 3 FreeStyle lancets, 1 each by Other route Once per day., Disp: 100 each, Rfl: 11 glucose blood (FREESTYLE LITE) test strip, USE TO TEST BLOOD SUGAR ONCE EVERY DAY, Disp: 100 strip,Rfl: 3 guaiFENesin (Mucinex) 600 MG 12 hr tablet, Take 2 tablets (1,200 mg) by mouth 2 times daily. Do notcrush, chew, or split., Disp: 120 tablet, Rfl: 11 Ketotifen Fumarate 0.035 % solution, Administer 1 drop into affected eye(s) if needed in the morning and at bedtime (allergies)., Disp: 5 mL, Rfl: 3 lidocaine (Lidoderm) 5 % patch, Apply 1-2 patches topically if needed each day for mild pain. Remove & discard patch within 12 hours or as directed by MD., Disp: 60 patch, Rfl: 3 losartan (Cozaar) 50 MG tablet, Take 1 tablet (50 mg) by mouth Once per day., Disp: 90 tablet, Rfl:3 metFORMIN XR (Glucophage-XR) 500 MG 24 hr tablet, TAKE ONE TABLET BY MOUTH TWICE A DAY, Disp: 180 tablet, Rfl: 3 methylPREDNISolone (Medrol Dospak) 4 MG tablets, Follow schedule on package instructions, Disp: 21 tablet, Rfl: 0 Multiple Vitamins-Minerals (PreserVision AREDS) capsule, Take 1 capsule by mouth 2 times daily. Take with food., Disp: 60 capsule, Rfl: 11 naproxen (Naprosyn) 500 MG tablet, Take 1 tablet (500 mg) by mouth if needed in the morning and at bedtime for mild pain or moderate pain for up to 30 doses., Disp: 30 tablet, Rfl: 0 pantoprazole (Protonix) 40 MG EC tablet, Take 1 tablet (40 mg) by mouth before breakfast. Do not crush, chew, or split., Disp: 90 tablet, Rfl: 1 pravastatin (Pravachol) 10 MG tablet, Take 1 tablet (10 mg) by mouth at bedtime., Disp: 90 tablet, Rfl: 3 traMADol (Ultram) 50 MG tablet, Take 1 tablet (50 mg) by mouth every 8 (eight) hours if needed for severe pain for up to 5 days., Disp: 15 tablet, Rfl: 0 documented in this encounter Plan of Treatment Upcoming Encounters Date Type Department Care Team (Late st Contact Info) Description 01/26/2025 9:15 AM EDT Office Visit [facility] [address] [place] [address] Tish Fontana, CONCIERGE MANAGER [address] [place] [address] Scheduled Referrals Name Type Priority Associated Diagnoses Orde r Schedule Referral to Physiatry Outpatient Referral Routine Acute bilateral low back pain with right-sided sciatica Expected: 12/30/2024 (Approximate), Expires: 12/30/2025 documented as of this encounter Procedures Procedure Name Priority Date/Time Associated Diagnosis Comments XR HIP 2 OR 3 VIEWS RIGHT Routine 12/30/2024 2:58 PM EDT Acute bilateral low back pain with right-sided sciatica Bilateral hip pain XR HIP 2 OR 3 VIEWS LEFT Routine 12/30/2024 2:58 PM EDT Acute bilateral low back pain with right-sided sciatica Bilateral hip pain XR LUMBAR SPINE 2-3 VIEWS Routine 12/30/2024 2:58 PM EDT Acute bilateral low back pain with right-sided sciatica Bilateral hip pain documented in this encounter Results * XR Hip 2 or 3 Views Right (12/30/2024 2:58 PM EDT) Anatomical Region Laterality Modality Lower Extremities, Hip Right Radiograp hic Imaging 12/30/2024 2:58 PM EDT Narrative 12/30/2024 3:32 PM EDT ?[facility] ?[address] ?[place] [address] ?XRay Report ? Signed ? Patient: Blane,Lucie E ?MR#: [id number] ? : 1965 ?Acct:[id number] ? Age/Sex: 59 / F ?ADM Date: 04/10/25 ? Loc: HO.HHCX ? Attending Dr: Emely Valerio DO ? Ordering Physician: Emely Valerio DO ?? Date of Service: 12/30/24 ?? Procedure(s): XR hip RT min 2V ?? Accession Number(s): [id number] ? cc: Emely Valerio DO ? EXAMINATION: ?? XR HIP, RIGHT ? CLINICAL INFORMATION: ?? acute worsening LBP x one mos with b/l hip pain ? COMPARISON: ?? 10/25/2019. ? TECHNIQUE: ?? Two views of the right hip. ? FINDINGS: ?? No fracture. Alignment is anatomic. Hip joint space is maintained. Soft ?? tissues are unremarkable. ? XR/XR hip RT min 2V ?? IMPRESSION: ?? Normal right hip. ? Electronically signed by: ??Les Ro MD ??12/30/2024 03:29 PM EDT RP ? Dictated By: ?Les Ro MD ? Signed By: ?<Electronically signed by Les Ro MD in OV> ?12/30/24 1529 ? DD/ 1458 ? TD/TT: 12/30/24 1500 ? Prepress Manager: ? Procedure Note Zeke Del Toro - 12/30/[address] [address] XRay Report Signed Patient: Lucie Arguelles EMR#: [id number] : 1965Acct:[id number] Age/Sex: 59 / FADM Date: 12/30/24 Loc: HO.HHCX Attending Dr: Emely Valerio DO Ordering Physician: Emely Valerio DO Date of Service: 12/30/24 Procedure(s): XR hip RT min 2V Accession Number(s): [id number] cc: Emely Valerio DO EXAMINATION: XR HIP, RIGHT CLINICAL INFORMATION: acute worsening LBP x one mos with b/l hip pain COMPARISON: 10/25/2019. TECHNIQUE: Two views of the right hip. FINDINGS: No fracture. Alignment is anatomic. Hip joint space is maintained. Soft tissues are unremarkable. XR/XR hip RT min 2V IMPRESSION: Normal right hip. Electronically signed by: Les Ro MD 12/30/2024 03:29 PM EDT Dictated By: Les Ro MD Signed By: <Electronically signed by Les Ro MD in OV> 12/30/24 1529 DD/ 1458 TD/TT: 12/30/24 1500 Prepress Manager: us Emely Valerio DO IMG XR PROCEDURES Final Resu lt * XR Hip 2 or 3 Views Left (12/30/2024 2:58 PM EDT) Anatomical Region Laterality Modality Lower Extremities, Hip Left Radiograp hic Imaging 12/30/2024 2:58 PM EDT Narrative 12/30/2024 3:31 PM EDT ?[facility] ?[address] ?[place] [address] ?XRay Report ? Signed ? Patient: Blane,Lucie E ?MR#: [id number] ? : 1965 ?Acct:[id number] ? Age/Sex: 59 / F ?ADM Date: 12/30/24 ? Loc: HO.HHCX ? Attending Dr: Emely Valerio DO ? Ordering Physician: Emely Valerio DO ?? Date of Service: 12/30/24 ?? Procedure(s): XR hip LT min 2V ?? Accession Number(s): [id number] ? cc: Emely Valerio DO ? EXAMINATION: ?? XR HIP, LEFT ? CLINICAL INFORMATION: ?? acute worsening LBP x one mos with b/l hip pain ? COMPARISON: ?? None available. ? TECHNIQUE: ?? Two views of the left hip. ? FINDINGS: ?? No fracture. Alignment is anatomic. Hip joint space is maintained. Soft ?? tissues are unremarkable. ? XR/XR hip LT min 2V ?? IMPRESSION: ?? Normal left hip. ? Electronically signed by: ??Les Ro MD ??12/30/2024 03:28 PM EDT RP ? Dictated By: ?Les Ro MD ? Signed By: ?<Electronically signed by Les Ro MD in OV> ?04/10/25 1528 ? DD/DT: /07/16 1458 ? TD/TT: /07/16 1500 ? Prepress Manager: ? Procedure Note Alverto, Image - 04/10/2025 [facility] [address] [place] [address] XRay Report Signed Patient: Lucie Arguelles EMR#: [id number] : 1965Acct:[id number] Age/Sex: 59 / FADM Date: 12/30/24 Loc: HO.HHCX Attending Dr: Emely Valerio DO Ordering Physician: Emely Valerio DO Date of Service: 12/30/24 Procedure(s): XR hip LT min 2V Accession Number(s): [id number] cc: Emely Valerio DO EXAMINATION: XR HIP, LEFT CLINICAL INFORMATION: acute worsening LBP x one mos with b/l hip pain COMPARISON: None available. TECHNIQUE: Two views of the left hip. FINDINGS: No fracture. Alignment is anatomic. Hip joint space is maintained. Soft tissues are unremarkable. XR/XR hip LT min 2V IMPRESSION: Normal left hip. Electronically signed by: Les Ro MD 12/30/2024 03:28 PM EDT Dictated By: Les Ro MD Signed By: <Electronically signed by Les Ro MD in OV> 12/30/24 1528 DD/ 1458 TD/TT: 12/30/24 1500 Prepress Manager: us Emely Valerio DO IMG XR PROCEDURES Final Resu lt * XR Lumbar Spine 2-3 Views (12/30/2024 2:58 PM EDT) Anatomical Region Laterality Modality Spine, L-spine Radiographic Flor ging 12/30/2024 2:58 PM EDT Narrative 12/30/2024 3:37 PM EDT ?[facility] ?[address] ?[place] [address] ?XRay Report ? Signed ? Patient: Blane,Lucie E ?MR#: [id number] ? : 1965 ?Acct:[id number] ? Age/Sex: 59 / F ?ADM Date: 04/10/25 ? Loc: HO.HHCX ? Attending Dr: Emely Valerio DO ? Ordering Physician: Emely Valerio DO ?? Date of Service: 12/30/24 ?? Procedure(s): XR lumbar spine 2-3V ?? Accession Number(s): [id number] ? cc: Emely Valerio DO ? EXAMINATION: ?? XR LUMBOSACRAL SPINE ? CLINICAL INFORMATION: ?? acute worsening LBP x one mos with b/l hip pain ? COMPARISON: ?? 06/22/2014. ?? MRI lumbar 01/02/2018. ? TECHNIQUE: ?? Three views of the lumbosacral spine. ? FINDINGS: ?? Moderate levoconvex scoliosis, worsened since 2013. [place] at L2. There ?? is a rotatory component. ?? There is a normal lordosis. There is no definite subluxation. ?? There is no fracture, compression deformity, or suspicious bone lesion. ?? There is moderate to severe multilevel disc degeneration, with disc ?? vacuum phenomenon at all levels. There are large right laterally and ?? anteriorly projecting disc osteophytes, most notable spanning L2-3, and ?? L3-4. There are sclerotic type endplate changes present at L1 to, L2-3, ?? and L3-4. ?? Multilevel degenerative facet changes present throughout. ? The sacrum appears intact. There are mild to moderate arthritic changes ?? in the right than left SI joints. ? There are cholecystectomy clips. Soft tissues otherwise normal. ? XR/XR lumbar spine 2-3V ?? IMPRESSION: ?? 1. Worsening levoconvex scoliosis, now moderate. ?? 2. Worsening multilevel moderate to severe spondylosis. ? Electronically signed by: ??Les Ro MD ??12/30/2024 03:34 PM EDT RP ? Dictated By: ?Les Ro MD ? Signed By: ?<Electronically signed by Les Ro MD in OV> ?12/30/24 1534 ? DD/ 1458 ? TD/TT: 12/30/24 1500 ? Prepress Manager: ? Procedure Note Zeke Del Toro - 12/30/2024 [facility] [address] [place] [address] XRay Report Signed Patient: Lucie Arguelles EMR#: [id number] : 1965Acct:[id number] Age/Sex: 59 / FADM Date: 12/30/24 Loc: HO.HHCX Attending Dr: Emely Valerio DO Ordering Physician: Emely Valerio DO Date of Service: 12/30/24 Procedure(s): XR lumbar spine 2-3V Accession Number(s): [id number] cc: Emely Valerio DO EXAMINATION: XR LUMBOSACRAL SPINE CLINICAL INFORMATION: acute worsening LBP x one mos with b/l hip pain COMPARISON: 06/22/2014. MRI lumbar 01/02/2018. TECHNIQUE: Three views of the lumbosacral spine. FINDINGS: Moderate levoconvex scoliosis, worsened since 2013. [place] at L2. There is a rotatory component. There is a normal lordosis. There is no definite subluxation. There is no fracture, compression deformity, or suspicious bone lesion. There is moderate to severe multilevel disc degeneration, with disc vacuum phenomenon at all levels. There are large right laterally and anteriorly projecting disc osteophytes, most notable spanning L2-3, and L3-4. There are sclerotic type endplate changes present at L1 to, L2-3, and L3-4. Multilevel degenerative facet changes present throughout. The sacrum appears intact. There are mild to moderate arthritic changes in the right than left SI joints. There are cholecystectomy clips. Soft tissues otherwise normal. XR/XR lumbar spine 2-3V IMPRESSION: 1. Worsening levoconvex scoliosis, now moderate. 2. Worsening multilevel moderate to severe spondylosis. Electronically signed by: Les Ro MD 12/30/2024 03:34 PM EDT Dictated By: Les Ro MD Signed By: <Electronically signed by Les Ro MD in OV> 12/30/24 1534 DD/ 1458 TD/TT: 12/30/24 1500 Prepress Manager: Emely Valerio DO IMG XR PROCEDURES Final Resu lt documented in this encounter Visit Diagnoses Diagnosis Acute bilateral low back pain with right-sided sciatica- Primary Bilateral hip pain Pain in joint, pelvic region and thigh COVID-19 virus infection documented in this encounter Additional Health Concerns Assessment Noted Time PHQ-9 Depression Total Score: 8 01/14/20 24 10:46 AM EDT documented as of this encounter Care Teams Certified Optician Relationship Specialty Start Date End Date Tish Fontana FNP [address] [place] [address] PCP - General Family Medicine 05/18/22 documented as of this encounter
--- OUTSIDE RECORDS SUMMARY | 2024-12-30 17:32 | XMS_ITS | Encounter Summary ---
Author Organization [employer] Address [address] [place] [address] Care Team Providers Care Flight Operations Inspector Name Role Phone Tish Fontana Primary Care Provider [phone] Reason for Visit * Reason Onset Date Comments Nurse Triage 07/14/2023 Encounter Details Date Type Department Care Team ([facility] Contact Info) Description 07/14/[address] [facility] [address] [place], [place] [phone] Tish Fontana FNP [address] [place], [place] [phone] Nurse Triage Social History Tobacco Use Types Packs/Day Years Used Date Smoking Tobacco: Never Smokeless Tobacco: Never Depression Answer Date Recorded Patient Health Questionnaire-9 Score 0 12/26/2022 Housing Stability Answer Date Recorded What is your housing situation today? I have oswadlo rush 07/14/[address] you li ve. Do you have problems with any of the following? None of the above 07/14/2023 Food Insecurity Answer Date Recorded Within the past 12 months, y ou worried that your food would run out before you got money to buy more: Never True 07/14/2023 Within the past 12 months,th e food you bought just didn't last and you didn't have enough money to get more: Never True Transportation Answer Date Recorded In the past 12 months, has l ack of transportation kept you from medical appts, meetings, work or from getting things needed for daily living? No 07/14/2023 Utilities Answer Date Recorded In the past 12 months, has t he electric, gas, oil or water company threatened to shut off services in your home? No 07/14/2023 Depression Answer Date Recorded Patient Health Questionnaire-2 Score 0 12/26/2022 Comments Unknown Sex and Gender Information Value Date Recorded Sex Assigned at Female 07/22/2022 10:14 AM EDT Legal Sex Female 10:14 AM EDT Gender Identity Female 07/22/2022 10:14 AM EDT Sexual Orientation Straight 07/22/2022 10 :14 AM EDT documented as of this encounter Plan of Treatment Upcoming Encounters Date Type Department Care Team (Late st Contact Info) Description 01/26/2025 9:15 AM EDT Office Visit [facility] [address] [place] [address] Tish Fontana FNP [address] [place] [address] documented as of this encounter Visit Diagnoses Not on filedocumented in this encounter Additional Health Concerns Assessment Noted Time PHQ-9 Depression Total Score: 0 12/27/19 23 11:09 AM EDT documented as of this encounter Care Teams Flight Operations Inspector Relationship Specialty Start Date End Date Tish Fontana FNP [address] [place] [address] PCP - General Family Medicine 05/18/22 documented as of this encounter
--- OUTSIDE RECORDS SUMMARY | 2024-12-30 17:32 | XMS_ITS | Encounter Summary ---
Author Organization [employer] Address [address] [place] [address] [address] [place] [address] Care Team Providers Care Gameroom Technician Name Role Phone Tish Fontana Primary Care Provider Encounter Details Date Type Department Care Team (Latest Contact Info) Description 03/05/2021 Abstract [facility] CONVERSIONS Dental, Provider, DDS Social History Tobacco Use Types Packs/Day Years Used Date Smoking Tobacco: Never Assessed Comments Unknown Sex and Gender Information Value [...] Description 01/26/2025 9:15 AM EDT Office Visit [facility] MEDICINE [address] [place] [address] Tish Fontana FNP [address] [place] [address] documented as of this encounter Visit Diagnoses Not on filedocumented in this encounter Care Teams Gameroom Technician Relationship Specialty Start Date End Date Tish Fontana FNP [address] [place] [address] PCP - General Family Medicine 05/18/22 documented as of this encounter
--- OUTSIDE RECORDS SUMMARY | 2024-12-30 17:32 | XMS_ITS | Encounter Summary ---
Author Organization [employer] Address [address] [facility] [address] [place] [address] Care Team Providers Care Billing Manager Name Role Phone Tish Fontana Primary Care Provider [phone] Reason for Visit * Reason Comments Med Refill Encounter Details Date Type Department Care Team ([facility] st Contact Info) Description 07/16/2024 Refill [facility] MEDICINE [address] [place] [address] Tish Fontana FNP [address] [place] [address] Social History Tobacco Use Types Packs/Day Years [...] Description 01/26/2025 9:15 AM EDT Office Visit [facility] MED[facility]INE [address] [place] [address] Tish Fontana FNP [address] [place] [address] documented as of this encounter Visit Diagnoses Not on filedocumented in this encounter Additional Health Concerns Assessment Noted Time PHQ-9 Depression Total Score: 8 01/14/20 24 10:46 AM EDT documented as of this encounter Care Teams Billing Manager Relationship Specialty Start Date End Date Tish Fontana FNP [address] [place] [address] PCP - General Family Medicine 05/18/22 documented as of this encounter
--- OUTSIDE RECORDS SUMMARY | 2024-12-30 17:32 | XMS_ITS | Clinical Summary ---
Author Organization [employer] Address [address] [place] [address] [address] [place] [address] Care Team Providers Care Assistant Distribution Manager Name Role Phone Tish Fontana BEN DAY ARTIST Primary Care Provider [phone] Allergies Active Allergy Reactions Criticality Noted Date Comments Citalopram 12/01/2019 Methocarbamol Insomnia High 03/12/2024 Medications metFORMIN XR (Glucophage-XR) 500 MG 24 hr tabletIndicatio ns:Type 2 diabetes mellitus without complication, without long-term current use of insulin (CMS/HCC) TAKE ONE TABLET BY MOUTH TWICE A DAY 180 tablet 3 Active cetirizine (ZyrTEC) 10 MG tabletIndicatio ns:Generalized pruritus TAKE ONE TABLET BY MOUTH EVERY DAY NEEDED FOR ALLERGIES 90 tablet 3 Active pravastatin (Pravachol) 10 MG tablet Take 1 tablet (10 mg) by mouth at bedtime. 90 tablet 3 Active Alcohol Swabs (B-D SINGLE USE SWABS REGULAR) pads USE BEFORE CHECKING BLOOD SUGAR 100 each 11 Active dilTIAZem CD (Cardizem CD) 180 MG 24 hr capsuleIndicati ons:Supraventri cular tachycardia (CMS/HCC) TAKE TWO CAPSULES BY MOUTH EVERY DAY 180 capsule 1 Active docusate sodium (Colace) 100 MG capsuleIndicati ons:Constipatio n, unspecified constipation type TAKE ONE CAPSULE BY MOUTH AT BEDTIME NEEDED FOR CONSTIPATION 90 capsule 3 Active fluticasone (Flonase) 50 MCG/ACT nasal sprayIndication s:Pharyngitis, unspecified etiology,Season al allergies APPLY ONE SPRAY IN EACH NOSTRIL TWICE A DAY NEEDED 48 g 3 Active FreeStyle lancetsIndicati ons:Type 2 diabetes mellitus without complication, unspecified whether termite treater helper insulin use ([facility]) 1 each by Other route Once per day. 100 each 11 Active glucose blood (FREESTYLE LITE) test stripIndication s:Type 2 diabetes mellitus without complication, without long-term current use of insulin ([facility]) USE TO TEST BLOOD SUGAR ONCE EVERY DAY 100 strip 3 Active Ketotifen Fumarate 0.035 % solutionIndicat ions:Seasonal allergies Administer 1 drop into affected eye(s) if needed in the morning and at bedtime (allergies). 5 mL 3 Active losartan (Cozaar) 50 MG tablet Take 1 tablet (50 mg) by mouth Once per day. 90 tablet 3 Active pantoprazole (Protonix) 40 MG EC tablet Take 1 tablet (40 mg) by mouth before breakfast. Do not crush, chew, or split. 90 tablet 1 024 2024 Active cholecalciferol (D3 Super Strength) 50 MCG (2000 UT) capsule TAKE ONE CAPSULE BY MOUTH EVERY DAY 90 capsule Active guaiFENesin (Mucinex) 600 MG 12 hr tablet Take 2 tablets (1,200 mg) by mouth 2 times daily. Do not crush, chew, or split. 120 tablet 11 025 2025 Active Multiple Vitamins-Minera ls (PreserVision AREDS) capsule Take 1 capsule by mouth 2 times daily. Take with food. 60 capsule 11 025 Active lidocaine (Lidoderm) 5 % patch Apply 1-2 patches topically if needed each day for mild pain. Remove & discard patch within 12 hours or as directed by MD. 60 patch 3 Active naproxen (Naprosyn) 500 MG tabletIndicatio ns:COVID-19 virus infection Take 1 tablet (500 mg) by mouth if needed in the morning and at bedtime for mild pain or moderate pain for up to 30 doses. 30 tablet 025 Active acetaminophen (Tylenol 8 Hour) 650 MG ER tablet Take 1 tablet (650 mg) by mouth every 8 (eight) hours if needed for mild pain. Do not crush, chew, or split. 40 tablet 1 025 2024 Active baclofen (Lioresal) 10 MG tablet Take 1 tablet (10 mg) by mouth if needed in the morning, at noon, and at bedtime for muscle spasms. 60 tablet 1 025 2024 Active methylPREDNISol one (Medrol Dospak) 4 MG tablets Follow schedule on package instructions 21 tablet 025 2024 Active traMADol (Ultram) 50 MG tabletIndicatio ns:Acute bilateral low back pain with right-sided sciatica Take 1 tablet (50 mg) by mouth every 8 (eight) hours if needed for severe pain for up to 5 days. 15 tablet 025 2024 Active Diclofenac Sodium 1 % gel Apply 2 g topically if needed in the morning, at noon, in the evening, and at bedtime (pain). 150 g 3 Active tiZANidine (Zanaflex) 2 MG tablet Take 1 tablet by mouth if needed in the morning, at noon, and at bedtime for muscle spasms. 022 2024 Discontinued(M ed list cleanup (will not trigger notification to Pharmacy)) naproxen (Naprosyn) 500 MG tabletIndicatio ns:COVID-19 virus infection Take 1 tablet (500 mg) by mouth if needed in the morning and at bedtime for mild pain or moderate pain for up to 30 doses. 30 tablet 024 2024 Discontinued(R eorder (will not trigger notification to Pharmacy)) lidocaine (Lidoderm) 5 % patch Apply 1 patch topically Once per day. Remove & discard patch within 12 hours or as directed by MD. 30 patch 3 024 2024 Discontinued(R eorder (will not trigger notification to Pharmacy)) Active Problems Problem Noted Date Diagnosed Date Vasomotor symptoms due to menopause 06/27/2024 Assessment & Plan (06/27/2024 4:10 PM EDT): Symptoms bothersome and frequent despite lifestyle interventions Plan: family history of multiple types of cancers. She may benefit from tx of non-hormonal therapy instead of hormonal therapy. Consideration/qualifications for BRCA testing Consideration of tx for vasomotor symptoms, possibly non-hormonal. Also encouraged to speak with OBGYN regarding these symptoms Uterine myoma 04/06/2024 Assessment & Plan (04/06/2024 5:24 PM EDT): Following with [facility] - Dr. Quinn Identified on US 02/19/24 - tiny 1cm intramural myoma in left body of the uterus. Plan: expectant management with repeat pelvic US periodically Postcoital bleeding 04/06/2024 Assessment & Plan (06/27/2024 4:06 PM EDT): Following with [facility] - Dr. Quinn. Pelvic US 01/30/24: 1. Tiny 1 cm intramural myoma in the left body of the uterus decreased in size from prior. 2. Trace fluid in the endometrial canal. 3. Unremarkable sonographic appearance of the right ovary. The left ovary was not identified sonographically. No adnexal mass EMB completed 02/19/24 w/ path demonstrating poorly preserved epithelium. Abundant mucoinflammatory material w/ no overt atypia. 03/12/24: Hysteroscopy D&C, endocervical curettage and excision of endocervical lesion. Path revealed benign endocervical glandular mucosa with submucosal leiomyoma. Squamous epithlium with focal mild atypia, suspicious for ARISTIDES 1 03/23/24: [facility] - Dr. Quinn. Recommended co-testing in 12 months. Plan to call if she experiences any more vaginal bleeding (PCB) Had consult at [facility] for consideration of lap hysterectomy, encouraged to defer at this time Assessment & Plan (04/06/2024 5:28 PM EDT): Following with [facility] Joe Quinn. Pelvic US 01/30/24: 1. Tiny 1 cm intramural myoma in the left body of the uterus decreased in size from prior. 2. Trace fluid in the endometrial canal. 3. Unremarkable sonographic appearance of the right ovary. The left ovary was not identified sonographically. No adnexal mass EMB completed 02/19/24 w/ path demonstrating poorly preserved epithelium. Abundant mucoinflammatory material w/ no overt atypia. 03/12/24: Hysteroscopy D&C, endocervical curettage and excision of endocervical lesion. Path revealed benign endocervical glandular mucosa with submucosal leiomyoma. Squamous epithlium with focal mild atypia, suspicious for ARISTIDES 1 Pt has upcoming appt this week to discuss next steps with [employer]. Given her PMB, PCB, and family history, she is interested in discussing surgical options such as hysterectomy. Other irritable bowel syndrome 04/06/2024 Assessment & Plan (04/06/2024 5:21 PM EDT): Following with LIB[facility] Ruiz. Last available consult note January 2024. Plan to increase daily fiber. Prescribed hyoscyamine sublingual to see if covered by insurance. FODMAP diet discussed. Routine health maintenance 12/26/2022 Overview (04/12/2024): -Pap: NILM HPV neg 09/2017, HPV neg 01/15/22. Following with [facility] -Mammogram: 01/08/24 BIRADS 1 -Colonoscopy: normal 2015, due 2025 -Optometry: [facility] Jul 2023 -Dental: established with [facility] Dental Essential hypertension 09/11/2022 Overview (12/26/2022): -Well controlled -Goal < 130/80mmHg -Continue losartan 50mg daily -Encouraged low salt diet and 150 mins of exercise weekly Curvature of spine 10/03/2021 Deep venous thrombosis 10/03/2021 Leg length inequality 10/03/2021 Fear of flying 03/05/2021 Piriformis syndrome of left side 05/24/2020 Type 2 diabetes mellitus without complication Overview (06/25/2024): Lab Results Component Value Date HGBA1C 6.4 (A) 06/25/2024 -Cont with metformin 500mg BID -Cont with lifestyle interventions such as dietary and exercise as tolerated. -Recommended 150mins of exercise per week as able. -Eye: Jul 2023 at [facility] -Microalbumin 24 December 2022 Assessment & Plan (04/06/2024 5:33 PM EDT): Well controlled Anxiety 06/18/2018 Overview (05/02/2023): ?? Following with [facility] ?? Diagnoses include: MDD & LEONIE Lumbar radiculopathy 06/18/2018 Allergic rhinitis 06/16/2012 Gastroesophageal reflux disease 06/16/2012 Supraventricular tachycardia 06/16/2012 Overview (12/26/2022): -Continue Cardizem 360mg daily -Following with Cardiology Resolved Problems Problem Noted Date Diagnosed Date Resolved Date Flushing 09/23/2018 06/27/2024 Encounters Date Type Department Care Team Description 12/30/2024 2:40 PM EDT Office Visit [facility] [address] [place] [address] Emely Valerio DO Acute bilateral low back pain with right-sided sciatica (Primary Dx); Bilateral hip pain; COVID-19 virus infection 12/30/2024 Travel 12/17/2024 2:00 PM EDT Office Visit [facility] [address] [place] [address] Javon, Sindy, OD Diabetes type 2, 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) (Primary Dx); Drusen of macula of both eyes; Combined forms of age-related cataract of both eyes; Presbyopia 12/17/2024 Travel 12/08/2024 Telephone [facility] [address], [place] [phone] Tish Fontana FNP November12/03/2024 Population Health Risk Score [facility] [address] [place] [address] Provider, Population Health Generic 11/05/2024 2:20 PM EST Office Visit [facility] [address] [place] [address] Soo Su FNP Cough, unspecified type (Primary Dx); Acute URI 11/02/2024 Refill [facility] [address], [place] [phone] Tish Fontana FNP from Last 3 Months Immunizations Name Administration Dates Next Due Hep B, adult 04/26/2015,10/13/2014,07/19/2014 Influenza injectable quadriv alent IIV4 with preservative 09/13/2019,06/18/2018,10/21/2017,06/25,07/28/2015 Influenza injectable quadriv alent preservative free 07/21/2023,06/21/2022,07/04/2021,07/19 Influenza, IIV3, injectable 06/07/2014, 2,06/06/2010 Influenza, Split (incl. mahesh fied surface antigen) 07/07/2013,06/16/2012 Influenza, seasonal, injecta ble, preservative free 06/25/2024 Pneumococcal Conjugate PCV 20 07/21/2023 Pneumococcal Polysaccharide PPSV23 12/07/2019, TD (adult), 2 Lf tetanus tox oid, preservative free, adsorbed 06/21/2022 Tdap 06/16/2012 Zoster, Recombinant 06/13/2021,04/10/2021 Family History Medical History Relation Name Comments Prostate cancer Brother Prostate cancer Cousin Prostate cancer Father Uterine cancer Mother Colon cancer Mother's Brother Cervical cancer Niece Relation Name Status Comments Brother Cousin Other Father Mother Mother's Brother Niece Alive Social History Tobacco Use Types Packs/Day Years Used Date Smoking Tobacco: Never Smokeless Tobacco: Never Tobacco Cessation:Counseling Given: Not Answered Depression Answer Date Recorded Patient Health Questionnaire-9 [...] Orientation Straight 07/22/2022 10 :14 AM EDT Last Filed Vital Signs Vital Sign Reading Time Taken Comments Blood Pressure 152/85 12/30/2024 2:25 PM EDT Pulse 85 12/30/2024 2:25 PM EDT Temperature 36.6 ??C (97.8 ??F) 12/30/2024 2:25 PM E DT Respiratory Rate 18 12/30/2024 2:25 PM EDT Oxygen Saturation 95% 12/30/2024 2:25 PM EDT Inhaled Oxygen Concentration - - Weight 88.3 kg (194 lb 9.6 oz) 12/30/2024 2:25 P M EDT Height 160 cm (5' 3 ) 11/05/2024 2:00 PM EST Body Mass Index 34.47 11/05/2024 2:00 PM EST Plan of Treatment Upcoming Encounters Date Type Department Care Team (Late st Contact Info) Description 01/26/2025 9:15 AM EDT Office Visit [facility] [address] [place] [address] Tish Fontana FNP [address], [place] [phone] Health Maintenance Due Date Last Done Comments CT Colonography 1966 FIT DNA/Cologuard 1966 FIT 1966 FOBT 1966 Sigmoidoscopy 1966 Diabetes: Foot Exam 1976 Alcohol/Substance Use Screening 1978 Diabetes: Urine Protein Screening 12/27/2023 12/26/2022, 12/07/2020, 09/24/2019 Lipid Panel 12/27/2023 12/26/2022, 12/07/2020 Diabetes: Hemoglobin A1C 12/24/2024 024, 04/05/2024, 01/14/2024, Additional history exists Mammogram 01/07/2025 01/08/2024, 12/21, 12/31/2022, Additional history exists Depression Screening 01/13/2025 01/14/2024, 01/14/20 SDOH Screening 01/13/2025 01/14/2024 COVID-19 Vaccine ( season) 2025 10/16/2021, 01/30/2021, 01/02/2021 Postponed from 05/23/2024 (Patient Refused) Tobacco Screening 12/30/2025 12/30/2024 Colonoscopy 09/10/2026 09/10/2016 Colorectal Cancer Screening 09/10/2026 Eye Exam 12/17/2026 12/17/2024, 11/21, 12/17/2024, Additional history exists Cervical Cancer Screening 01/15/2027 HPV/Cotest 01/15/2027 01/15/2022, 01/15/2022 Pap Smear 01/15/2027 DTaP/Tdap/Td Vaccines (3 - Td or Tdap) 06/21/2032 06/21/2022, 06/16/2012 RSV Patients and Patients Aged 60 years or older (1 - 1-dose 75+ series) 2041 Hepatitis B Vaccines Completed 04/26/2015, 10/13/2014, 07/19/2014 Zoster Vaccines Completed 06/13/2021, 04/10/2021 HIV Screening Completed 12/26/2022 Hepatitis C Screening Completed 12/26/2022 Pneumococcal Vaccine: 50+ Years Completed 07/21/2023, 12/07/2019, 07/15/2014 Influenza Vaccine Completed 06/25/2024, , 06/21/2022, Additional history exists HIB Vaccines Aged Out No longer eligi ble based on patient's age to complete this topic HPV Vaccines Aged Out No longer eligi ble based on patient's age to complete this topic Hepatitis A Vaccines Aged Out No long er eligible based on patient's age to complete this topic IPV Vaccines Aged Out No longer eligi ble based on patient's age to complete this topic Meningococcal Vaccine Aged Out No jennifer nyla eligible based on patient's age to complete this topic RSV under 20 months Aged Out No longe r eligible based on patient's age to complete this topic Rotavirus Vaccines Aged Out No longer eligible based on patient's age to complete this topic Procedures Procedure Name Priority Date/Time Associated Diagnosis [...] pain with right-sided sciatica Bilateral hip pain OCT, RETINA - OU - BOTH EYES Routine 12/17/2024 3:21 PM EDT Drusen of macula of both eyes POCT RAPID COVID ANTIGEN Routine 11/05/2024 2:21 PM EST Cough, unspecified type POCT INFLUENZA A (ID NOW RAPID MOLECULAR) Routine 11/05/2024 2:21 PM EST Cough, unspecified type POCT INFLUENZA B (ID NOW RAPID MOLECULAR) Routine 11/05/2024 2:21 PM EST Cough, unspecified type POCT RSV (ID NOW RAPID ANTIGEN) Routine 11/05/2024 2:21 PM EST Cough, unspecified type POCT GLYCATED HEMOGLOBIN, TOTAL Routine 06/25/2024 2:12 PM EDT Type 2 diabetes mellitus without complication, without long-term current use of insulin (CMS/HCC) BI MAMMOGRAM SCREENING TOMOSYNTHESIS BILATERAL Routine 01/08/2024 3:30 PM EDT HEPATITIS C AB W/REFL TO HCV RNA, QN, PCR Routine 12/26/2022 12:02 PM EDT Routine health maintenance HIV 1 RNA, QN PCR W/REFLEX TO GENOTYPE Routine 12/26/2022 12:02 PM EDT Routine health maintenance ALBUMIN, RANDOM URINE W/CREATININE Routine 12/26/2022 12:02 PM EDT Routine health maintenance LIPID PANEL, STANDARD Routine 12/26/2022 12:02 PM EDT Routine health maintenance ZZZ HISTORICAL HPV E6/E7 RFLX TANNER 16 18/45 Routine 01/15/2022 2:53 PM EDT HM COLONOSCOPY Routine 09/10/2016 from Last 3 Months or Most Recently Relevant to Health Maintenance Results * XR Hip 2 or 3 Views Right (12/30/2024 2:58 PM EDT) Anatomical Region Laterality Modality Lower Extremities, Hip Right Radiograp hic Imaging 12/30/2024 2:58 PM EDT Narrative 12/30/2024 3:32 PM EDT ?[facility] ?[address] ?[place] [address] ?XRay Report ? Signed ? Patient: Ramses,Lucie E ?MR#: [id number] ? : 1965 ?Acct:[id number] ? Age/Sex: 59 / F ?ADM Date: 04/10/25 ? Loc: HO.HHCX ? Attending Dr: Emely Valerio DO ? Ordering Physician: Emely Valerio DO ?? Date of Service: 12/30/24 ?? Procedure(s): XR hip RT min 2V ?? Accession Number(s): [id number] ? cc: Emely Valerio DO ? EXAMINATION: [...] DD/ 1458 ? TD/TT: 12/30/24 1500 ? Glass Blower Helper: ? Procedure Note Donlauren, Image - 12/30/[address] [address] XRay Report Signed Patient: Lucie Arguelles EMR#: [id number] : 1965Acct:[id number] Age/Sex: 59 / FADM Date: 12/30/24 Loc: HO.HHCX Attending Dr: Emely Valerio DO Ordering Physician: Emely Valerio DO Date of Service: 12/30/24 Procedure(s): XR hip RT min 2V Accession Number(s): [id number] cc: Emely Valerio DO EXAMINATION: XR HIP, [...] 12/30/24 1529 DD/ 1458 TD/TT: 12/30/24 1500 Glass Blower Helper: us Emely Teodoro DO IMG XR PROCEDURES Final Resu lt * XR Hip 2 or 3 Views Left (12/30/2024 2:58 PM EDT) Anatomical Region Laterality Modality Lower Extremities, Hip Left Radiograp hic Imaging 12/30/2024 2:58 PM EDT Narrative 12/30/2024 3:31 PM EDT ?[facility] ?[address] ?[place] [address] ?XRay Report ? Signed ? Patient: Ramses,Lucie E ?MR#: [id number] ? : 1965 ?Acct:[id number] ? Age/Sex: 59 / F ?ADM Date: 12/30/24 ? Loc: HO.HHCX ? Attending Dr: Emely Valerio DO ? Ordering Physician: Emely Valerio DO ?? Date of Service: 12/30/24 ?? Procedure(s): XR hip LT min 2V ?? Accession Number(s): [id number] ? cc: Emely Valerio DO ? EXAMINATION: [...] signed by Les Ro MD in OV> ?/07/16 1528 ? DD/ 1458 ? TD/TT: 12/30/24 1500 ? Glass Blower Helper: ? Procedure Note Alverto, Image - 12/30/2024 [facility] [address] [facility] [place] [address] XRay Report Signed Patient: Lucie Arguelles EMR#: [id number] : 1965Acct:[id number] Age/Sex: 59 / FADM Date: 12/30/24 Loc: HO.HHCX Attending Dr: Emely Valerio DO Ordering Physician: Emely Valerio DO Date of Service: 12/30/24 Procedure(s): XR hip LT min 2V Accession Number(s): [id number] cc: Emely Valerio DO EXAMINATION: XR HIP, [...] 12/30/24 1528 DD/ 1458 TD/TT: 12/30/24 1500 Glass Blower Helper: us Emely Valerio DO IMG XR PROCEDURES Final Resu lt * XR Lumbar Spine 2-3 Views (12/30/2024 2:58 PM EDT) Anatomical Region Laterality Modality Spine, L-spine Radiographic Flor ging 12/30/2024 2:58 PM EDT Narrative 12/30/2024 3:37 PM EDT ?[facility] ?[address] ?[place] [address] ?XRay Report ? Signed ? Patient: Ramses,Lucie E ?MR#: [id number] ? : 1965 ?Acct:[id number] ? Age/Sex: 59 / F ?ADM Date: 04/10/25 ? Loc: HO.HHCX ? Attending Dr: Emely Valerio DO ? Ordering Physician: Emely Valerio DO ?? Date of Service: 12/30/24 ?? Procedure(s): XR lumbar spine 2-3V ?? Accession Number(s): [id number] ? cc: Emely Valerio DO ? EXAMINATION: ?? XR LUMBOSACRAL SPINE ? CLINICAL INFORMATION: ?? acute worsening LBP x one mos with b/l hip pain ? COMPARISON: ?? 06/22/2014. ?? MRI lumbar 01/02/2018. ? TECHNIQUE: ?? Three views of the lumbosacral spine. ? FINDINGS: ?? Moderate levoconvex scoliosis, worsened since 2013. [place] at L2. There ?? is a rotatory [...] DD/ 1458 ? TD/TT: 12/30/24 1500 ? Glass Blower Helper: ? Procedure Note Zeke Del Toro - 12/30/2024 [facility] [address] [place] [address] XRay Report Signed Patient: Lucie Arguelles EMR#: [id number] : 1965Acct:[id number] Age/Sex: 59 / FADM Date: 12/30/24 Loc: HO.HHCX Attending Dr: Emely Valerio DO Ordering Physician: Emely Valerio DO Date of Service: 12/30/24 Procedure(s): XR lumbar spine 2-3V Accession Number(s): [id number] cc: Emely Valerio DO EXAMINATION: XR LUMBOSACRAL SPINE CLINICAL INFORMATION: acute worsening LBP x one mos with b/l hip pain COMPARISON: 06/22/2014. MRI lumbar 01/02/2018. TECHNIQUE: Three views of the lumbosacral spine. FINDINGS: Moderate levoconvex scoliosis, worsened since 2013. [place] at L2. There is a rotatory component. [...] 12/30/24 1534 DD/ 1458 TD/TT: 12/30/24 1500 Glass Blower Helper: Emely Valerio DO IMG XR PROCEDURES Final Resu lt * OCT, Retina - OU - Both Eyes (12/17/2024 3:21 PM EDT) Narrative Sindy Alejandro OD - 12/27/2024 11:23 AM EDT Images from the original result were not included. Right Eye Quality was good. Scan locations included subfoveal. Progression has no prior data. Left Eye Quality was good. Scan locations included subfoveal. Progression has no prior data. Notes OCT MACULA INTERPRETATION Optical Coherence Tomography Interpretation Report Measurements: OD ??OS Macula Thickness ??211 microns ? 213 microns Test findings: OD: Normal foveal contour, no cystoid macular edema (CME), tiny pinpoint drusen not disrupting the retinal pigment epithelium (RPE) yet, no subretinal fluid (SRF) OS: Normal foveal contour, no cystoid macular edema (CME), tiny pinpoint drusen not disrupting the retinal pigment epithelium (RPE) yet, no subretinal fluid (SRF) Impression and Plan: Subclinical macular drusen of both eyes. Patient educated on findings. Recommended starting AREDS-2 and to wear UV protection when outdoors. Will monitor in 1 year. Result [facility] Sindy Alejandro OD OPHTH TOMOGRAPHY Final Result * POCT RSV (ID NOW rapid antigen) (11/05/2024 2:21 PM EST) RSV Rapid Ag POC Negative Negative Swab 11/05/2024 2:21 PM EST Result [facility] Soo Su [facility] POINT OF CARE TEST ENTER/EDIT O RDERABLES Final Result * Influenza B (ID NOW Rapid Molecular) (11/05/2024 2:21 PM EST) Influenza B Negative Negative, Indeterminate [facility] Swab 11/05/2024 2:21 PM EST [employer]ix [employer] ART[employer] POINT OF CARE TEST ENTER/EDIT O RDERABLES Final Result [facility] [address] [place] [phone] * Influenza A (ID NOW Rapid Molecular) (11/05/2024 2:21 PM EST) Influenza A Negative Negative, Indeterminate [facility] Swab 11/05/2024 2:21 PM EST us Soo Su BEN DAY ARTIST POINT OF CARE TEST ENTER/EDIT O RDERABLES Final Result [facility] [address] [place] [address] [phone] * POCT Rapid COVID Ag (11/05/2024 2:21 PM EST) [facility] Rapid COVID Ag Negative Swab 11/05/2024 2:21 PM EST us Soo Su BEN DAY ARTIST POINT OF CARE TEST ENTER/EDIT O RDERABLES Final Result * (ABNORMAL) POCT HGB A1C (06/25/2024 2:12 PM EDT) [facility] Hemoglobin A1C 6.4(A) 4.0 - 6.0 % QC Media Lot # [id number] Lot# Expiration Date [id number] Blood 06/25/2024 2:12 PM EDT us Winston Maryellenhari BEN DAY ARTIST POINT OF CARE TEST ENTER/EDIT ORDERABLES Final Result * BI Mammogram Screening Tomosynthesis Bilateral (01/08/2024 3:30 PM EDT) Anatomical Region Laterality Modality Breast Bilateral Mammography 01/08/2024 3:30 PM EDT Narrative 02/08/2024 9:54 PM EDT ? [facility] [place] ? [address] ?[place] [address] ? Mammography Report ? Signed ? Patient: Ramses,Lucie E ?MR#: [id number] ? : 1965 ?Acct:[id number] ? Age/Sex: 58 / F ?ADM Date: 04/18/24 ? Loc: HO.MAMMO ? Attending Dr: Jean Quinn MD ? Ordering Physician: Jean Quinn MD ?Results: 1Negativ ?? e ? Date of Service: 01/08/24 ?Follow Up: 1 Year From Orig ?? inal Mammogram ? Procedure(s): MM tomosynthesis screening BI ?? Accession Number(s): [id number] ? cc: Tish Fontana; Jean Quinn MD ? EXAMINATION: ?? MM SCREENING DIGITAL BREAST TOMOSYNTHESIS, BILATERAL ? CLINICAL INFORMATION: ? Screening. Asymptomatic. ? COMPARISON: ?? Mammography: This study is compared with prior exams dating back to ?? 2018. ? TECHNIQUE: ?? Digital breast tomosynthesis is performed in both the craniocaudal and ?? mediolateral oblique views along with computer-aided detection (CAD). ?? Synthesized 2D images are generated from the tomosynthesis. ? FINDINGS: ?? There are scattered areas of fibroglandular density (ACR BI-RADS breast ?? composition Category b). ? There are no significant masses, abnormal calcifications, or other ?? abnormalities. ? MM/MM tomosynthesis screening BI ?? IMPRESSION: ?? No mammographic evidence of malignancy. ? ASSESSMENT: ? BI-RADS BI-RADS 1 - Negative ? RECOMMENDATION: ?? Routine annual mammography screening. ? 1 year F/U ? This examination should not preclude the clinical evaluation of a ?? suspicious palpable abnormality. ? This patient's information was entered into a reminder system with a ?? target due date for their next mammogram. ? Dictated By: ?Elizabeth Renteria MD ? Signed By: ?<Electronically signed by Elizabeth Renteria MD in OV> ? 02/08/242149 ? DD/ 29 ? TD/TT: ? Glass Blower Helper: ? Procedure Note Donotuseinterpreter, Image - 02/08/2024 [facility]'s [address] [place] [address] Mammography Report Signed Patient: Lucie Arguelles EMR#: [id number] : 1965Acct:[id number] Age/Sex: 58 / FADM Date: 01/08/24 Loc: HO.MAMMO Attending Dr: Jean Quinn MD Ordering Physician: Jean Quinn MDResults: 1Negativ e Date of Service: 01/08/24Follow Up: 1 Year From Orig inal Mammogram Procedure(s): MM tomosynthesis screening BI Accession Number(s): [id number] cc: Tish Fontana; Jean Quinn MD EXAMINATION: MM SCREENING DIGITAL BREAST TOMOSYNTHESIS, BILATERAL CLINICAL INFORMATION: Screening. Asymptomatic. COMPARISON: Mammography: This study is compared with prior exams dating back to 2019. TECHNIQUE: Digital breast tomosynthesis is performed in both the craniocaudal and mediolateral oblique views along with computer-aided detection (CAD). Synthesized 2D images are generated from the tomosynthesis. FINDINGS: There are scattered areas of fibroglandular density (ACR BI-RADS breast composition Category b). There are no significant masses, abnormal calcifications, or other abnormalities. MM/MM tomosynthesis screening BI IMPRESSION: No mammographic evidence of malignancy. ASSESSMENT: BI-RADS BI-RADS 1 - Negative RECOMMENDATION: Routine annual mammography screening. 1 year F/U This examination should not preclude the clinical evaluation of a suspicious palpable abnormality. This patient's information was entered into a reminder system with a target due date for their next mammogram. Dictated By: Elizabeth Renteria MD Signed By: <Electronically signed by Elizabeth Renteria MD in OV> 02/08/24 2150 DD/ 1530 TD/TT: Glass Blower Helper: [facility] External Provider IMG BI PROCEDURES Edited Result - Final * HIV-1 RNA, Quantitative, PCR with Reflex to Genotype (12/26/2022 12:02 PM EDT) Pathologist [facility] HIV 1 RNA, QN PCR Not Detected Copies/mL [facility] HIV 1 RNA, QN PCR Not Detected Log cps/mL [facility] [place] Comment: Reference Range: ?Not Detected ? copies/mL ?Not Detected Log copies/mL The test was performed using Real-Time Polymerase Chain Reaction. ? Reportable Range: 20 copies/mL to 10,000,000 copies/mL (1.30 Log copies/mL to 7.00 Log copies/mL). 12/26/2022 12:0 2 PM EDT 12/26/2022 12:03 PM EDT Tish Fontana BEN DAY ARTIST LAB BLOOD ORDERABLES Final Res ult [facility] [address], [place] [address] [facility] [address] [facility] [place] [address] * Albumin, Random Urine W/Creatinine (12/26/2022 12:02 PM EDT) Pathologist [facility] Creatinine, Random Urine 264 20 - 275 mg/dL [facility] [place] Albumin, Urine 1.1 See Note: mg/dL [facility] [place] [facility] Comment: Reference Range: Reference Range Not established Albumin/Creatinin e Ratio, Random Urine 4 <30 mcg/mg creat [facility] [place] Comment: The ADA defines abnormalities in albumin excretion as follows: Albuminuria Category ?Result (mcg/mg creatinine) Normal to Mildly increased ?? <30 Moderately increased ? 30-299 Severely increased ? > OR = 300 The ADA recommends that at least two of three specimens collected within a 3-6 month period be abnormal before considering a patient to be within a diagnostic category. 12/26/2022 12:0 2 PM EDT 12/26/2022 12:03 PM EDT Tish Maryelelnhari [facility] LAB URINE ORDERABLES Final Res ult Performing Organization Address [facility] de Phone Number [address], [place] [address] [facility] [place] [facility] [address] * Hepatitis C Antibody with Reflex to HCV, RNA, Quantitative, Real-Time PCR (12/26/2022 12:02 PM EDT) Hepatitis C Antibody NON-REACT DANO NON-REACT DANO [facility] [place] Index 0.05 <1.00 [facility] [place] Comment: HCV antibody was non-reactive. There is no laboratory evidence of HCV infection. In most cases, no further action is required. However, if recent HCV exposure is suspected, a test for HCV RNA (test code 37235) is suggested. For additional information please refer to http://education.Jumpido/faq/KWI10d6 (This link is being provided for informational/ educational purposes only.) Blood Venous blood specimen / Unknown 12/26/2022 12:02 PM EDT 12/26/2022 12:03 PM EDT us Tish Fontana [facility] LAB BLOOD ORDERABLES Final Res ult Performing Organization Address [facility] de Phone Number [address] [address] [facility] [address] [place] [address] * Lipid Panel, Standard (12/26/2022 12:02 PM EDT) [facility] Cholesterol, Total 157 <200 mg/dL [facility] [place] [facility] HDL Cholesterol 62 > OR = 50 mg/dL [facility] [place] Triglycerides 56 <150 mg/dL [facility] [place] LDL Cholesterol 81 mg/dL (calc) [facility] [place] Comment: Reference range: <100 Desirable range <100 mg/dL for primary prevention; ?? <70 mg/dL for patients with CHD or diabetic patients with > or = 2 CHD risk factors. LDL-C is now calculated using the Bettye calculation, which is a validated novel method providing better accuracy than the Friedewald equation in the estimation of LDL-C. Cezar SS et al. SALMA. 2013;310(19): 3695-6245 (http://education.Jackrabbit/faq/ADU894) Chol/HDLC Ratio 2.5 <5.0 (calc) [facility] [place] Non-HDL Cholesterol 95 <130 mg/dL (calc) [facility] [place] Comment: For patients with diabetes plus 1 major ASCVD risk factor, treating to a non-HDL-C goal of <100 mg/dL (LDL-C of <70 mg/dL) is considered a therapeutic option. Blood Venous blood specimen / Unknown 12/26/2022 12:02 PM EDT 12/26/2022 12:03 PM EDT us Tish Fontana [facility] LAB BLOOD ORDERABLES Final Res ult [facility] [address], [facility] [place] [address] [facility] [address] [place] [address] * HPV E6/E7 RFLX TANNER 16 18/45 (01/15/2022 2:53 PM EDT) HPV 16 RNA [facility] HPV 18/45 RNA [facility] HPV E6 E7 ADD [facility] HPV mRNA E6/E7 rflx Not Detected Not Detected [facility] Comment: Methodology: Dialysis Nurse-Mediated Amplification This assay detects E6/E7 viral messenger RNA (mRNA) from 14 high-risk HPV types (16,18,31,33,35,39,45,51,52,56,58,59,66,68). The analytical performance characteristics of this assay have been determined by [facility]. The modifications have not been cleared or approved by the FDA. This assay has been validated pursuant to the CLIA regulations and is used for clinical purposes. For additional information, please refer to http://education.Jumpido/faq/LYW917t6 (This link if provided for information/ educational purposes only.) THIS TEST WAS PERFORMED AT: [facility] [address] [place] [address],[address] [place], [place] ??[address] TINY HYLTON MD 01/15/2022 2:53 PM EDT Jean Quinn MD HISTORICAL/NON ORDERABLE LABS Fi nal Result Performing Organization Address City/State/[facility] Co de Phone Number [facility] [address] * Colonoscopy (09/10/2016) Colonoscopy Normal Normal 09/10/2016 Narrative Ruth Rob - 09/10/2016 11:20 AM EST Recommended 10 year follow up us Historical Provider HEALTH MAINTENANCE Edited Result - Final from Last 3 Months or Most Recently Relevant to Health Maintenance Insurance [facility] C3 Care Teams Assistant Distribution Manager Relationship Specialty Start Date End Date Tish Fontana FNP [address] [place] [phone] PCP - General Family Medicine 05/18/22
--- OUTSIDE RECORDS SUMMARY | 2024-12-30 17:32 | XMS_ITS | Encounter Summary ---
Author Organization [employer] Address [address] [facility] 7t [place] [address] Care Team Providers Care Janitor Custodian Name Role Phone Tish Fontana Primary Care Provider [phone] Reason for Visit * Reason Comments Med Refill Encounter Details Date Type Department Care Team (Late st Contact Info) Description 01/19/2023 Refill [facility] MEDICINE [address] [place] [address] Tish Fontana FNP [address] [place] [address] Anxiety with flying Social History Tobacco Use Types Packs/Day Years Used Date Smoking Tobacco: Never Smokeless Tobacco: Never Depression Answer Date Recorded Patient Health Questionnaire-9 Score 0 12/26/2022 Depression Answer Date Recorded Patient Health Questionnaire-2 Score 0 12/26/2022 Comments Unknown Sex and Gender Information Value Date Recorded Sex Assigned at Female 07/22/2022 10:14 AM EDT Legal Sex Female 10:14 AM EDT Gender Identity Female 07/22/2022 10:14 AM EDT Sexual Orientation Straight 07/22/2022 10 :14 AM EDT COVID-19 Exposure Response Date Recorded In the last 10 days, have yo u been in contact with someone who was confirmed or suspected to have Coronavirus/COVID-19? No / Unsure 12/26/2022 10:53 AM EDT documented as of this encounter Miscellaneous Notes * Telephone Encounter - Sakina Dale RN - 01/21/2023 8:15 AM EDT [facility], questioning Ativan refill request. Spoke with Tin, who stated refill request was likely initiated automatically. Requested pharmacy make Ativan not be set as automatic refill, pharmacist agreed. documented in this encounter Plan of Treatment Upcoming Encounters Date Type Department Care Team ([facility] st Contact Info) Description 01/26/2025 9:15 AM EDT Office Visit [facility] MEDICINE [address] [place] [address] Tish Fontana FNP [address] [place] [address] documented as of this encounter Visit Diagnoses Diagnosis Anxiety with flying documented in this encounter Additional Health Concerns Assessment Noted Time PHQ-9 Depression Total Score: 0 12/27/19 23 11:09 AM EDT documented as of this encounter Care Teams Janitor Custodian Relationship Specialty Start Date End Date Tish Fontana FNP [address] [place] [address] PCP - General Family Medicine 05/18/22 documented as of this encounter
--- OUTSIDE RECORDS SUMMARY | 2024-12-30 17:32 | XMS_ITS | Encounter Summary ---
Author Organization [employer] Address [address] [place] [address] 7 [place] [address] Care Team Providers Care Rn Endocrinology Name Role Phone Tish Fontana Primary Care Provider [phone] Encounter Details Date Type Department Care Team (Late st Contact Info) Description 01/29/2023 Abstract [facility] MEDICINE [address] [place], [place] [phone] Tish Fontana FNP [address] [place], [place] [phone] Social History Tobacco Use Types Packs/Day Years [...] Description 01/26/2025 9:15 AM EDT Office Visit [facility] MEDICINE [address] [place], [place] [phone] Tish Fontana FNP [address] [place], [place] [phone] documented as of this encounter Procedures Procedure Name Priority Date/Time Associated Diagnosis Comments HM COLONOSCOPY Routine 09/10/2016 documented in this encounter Results * Colonoscopy (09/10/2016) Colonoscopy Normal Normal 09/10/2016 Narrative Ruth Rob - 09/10/2016 11:20 AM EST Recommended 10 year follow up us Historical Provider HEALTH MAINTENANCE Edited Result - Final documented in this encounter Visit Diagnoses Not on filedocumented in this encounter Additional Health Concerns Assessment Noted Time PHQ-9 Depression Total Score: 0 12/27/19 23 11:09 AM EDT documented as of this encounter Care Teams Rn Endocrinology Relationship Specialty Start Date End Date Tish Fontana FNP [address] [place] [address] PCP - General Family Medicine 05/18/22 documented as of this encounter
--- OUTSIDE RECORDS SUMMARY | 2024-12-30 17:32 | XMS_ITS | Encounter Summary ---
Author Organization [employer] Address [address] [facility] [address] [place] [address] Care Team Providers Care Insurance Processing Clerk Name Role Phone Tish Fontana Primary Care Provider Reason for Visit * Reason Comments Med Refill Encounter Details Date Type Department Care Team ([facility] st Contact Info) Description 01/10/2024 Refill [facility] MEDICINE [address] [place] [address] Tish Fontana FNP [address] [place] [address] Supraventricular tachycardia (CMS/HCC) Social History Tobacco Use Types Packs/Day Years [...] Description 01/26/2025 9:15 AM EDT Office Visit [facility] MEDICINE [address] [place] [address] Tish Fontana FNP [address] [place] [address] documented as of this encounter Visit Diagnoses Diagnosis Supraventricular tachycardia (CMS/HCC) Other specified cardiac dysrhythmias documented in this encounter Additional Health Concerns Assessment Noted Time PHQ-9 Depression Total Score: 0 12/27/19 23 11:09 AM EDT documented as of this encounter Care Teams Insurance Processing Clerk Relationship Specialty Start Date End Date Tish Fontana FNP [address] [place] [address] PCP - General Family Medicine 05/18/22 documented as of this encounter
--- OUTSIDE RECORDS SUMMARY | 2024-12-30 17:32 | XMS_ITS | Encounter Summary ---
Author Organization [employer] Address [address] [facility] 7t [place] [address] Care Team Providers Care Automobile Upholstery Trim Installer Name Role Phone Tish Fontana Primary Care Provider [phone] Reason for Visit * Reason Comments Med Refill Encounter Details Date Type Department Care Team ([facility] st Contact Info) Description 06/30/2024 Refill [facility] MEDICINE [address] [place] [address] Tish Fontana FNP [address] [place] [address] Social History Tobacco Use Types Packs/Day Years [...] Description 01/26/2025 9:15 AM EDT Office Visit [facility] MEDICINE [address] [place] [address] Tish Fontana FNP [address] [place] [address] documented as of this encounter Visit Diagnoses Not on filedocumented in this encounter Additional Health Concerns Assessment Noted Time PHQ-9 Depression Total Score: 8 01/14/20 24 10:46 AM EDT documented as of this encounter Care Teams Automobile Upholstery Trim Installer Relationship Specialty Start Date End Date Tish Fontana FNP [address] [place] [address] PCP - General Family Medicine 05/18/22 documented as of this encounter
--- OUTSIDE RECORDS SUMMARY | 2024-12-30 17:32 | XMS_ITS | Encounter Summary ---
Author Organization [employer] Address [address] [facility] [address] [place] [address] Care Team Providers Care Log Chain Worker Name Role Phone Tish Fontana EHS ENGINEER Primary Care Provider [phone] Encounter Details Date Type Department Care Team (Latest Contact Info) Description 12/30/2024 Travel Social History Tobacco Use Types Packs/Day Years [...] Description 01/26/2025 9:15 AM EDT Office Visit [facility] MEDICINE [address] [place] [address] Tish Fontana FNP [address] [place] [address] documented as of this encounter Visit Diagnoses Not on filedocumented in this encounter Additional Health Concerns Assessment Noted Time PHQ-9 Depression Total Score: 8 01/14/20 24 10:46 AM EDT documented as of this encounter Care Teams Log Chain Worker Relationship Specialty Start Date End Date Tish Fontana FNP [address] [place] [address] PCP - General Family Medicine 05/18/22 documented as of this encounter
--- OUTSIDE RECORDS SUMMARY | 2024-12-30 17:32 | XMS_ITS | Encounter Summary ---
Author Organization [employer] Address [address] [facility] 7t [place] [address] Care Team Providers Care Clinical Informatics Educator Name Role Phone Tish Fontana Primary Care Provider [phone] Reason for Visit * Reason Comments Med Refill Encounter Details Date Type Department Care Team ([facility] st Contact Info) Description 06/22/2024 Refill [facility] MEDICINE 230 [place] [address] Tish Fontana FNP [address] [place] [address] Social History Tobacco Use Types Packs/Day Years [...] Description 01/26/2025 9:15 AM EDT Office Visit [facility] MEDICINE [address] [place] [address] Tihs Fontana FNP [address] [place] [address] documented as of this encounter Visit Diagnoses Not on filedocumented in this encounter Additional Health Concerns Assessment Noted Time PHQ-9 Depression Total Score: 8 01/14/20 24 10:46 AM EDT documented as of this encounter Care Teams Clinical Informatics Educator Relationship Specialty Start Date End Date Tish Fontana FNP [address] [place] [address] PCP - General Family Medicine 05/18/22 documented as of this encounter
== END 2024-12-30 14:59 | disposition home or self-care (01) ==
LOC: HO.HHCX 14:58
PROVIDERS: Visit Provider Family Medicine
DX: M54.41 Lumbago with sciatica, right side (principal); M25.551 Pain in right hip; M25.552 Pain in left hip
CPT/HCPCS: 72100; 73502

== ENCOUNTER → 2024-12-30 14:58 | Outpatient (BNV) | payer MEDICAID, SELFPAY | PROVIDERS: Visit Provider Radiology Diagnostic Radiology | DX: M25.552 Pain in left hip (principal); M47.897 Other spondylosis, lumbosacral region; M41.9 Scoliosis, unspecified; M25.551 Pain in right hip | CPT/HCPCS: 72100; 73502 ==

== ENCOUNTER 2025-01-13 12:24 | Outpatient (REF) | payer MEDICAID, SELFPAY ==
--- OUTSIDE RECORDS SUMMARY | 2025-01-13 14:41 | XMS_ITS | Encounter Summary ---
Author Organization [employer] Address [address] [facility] 7t [place] [address] Care Team Providers Care Computer Aided Design Operator Name Role Phone Tish Fontana Primary Care Provider [phone] Reason for Visit * Reason Comments Med Refill Encounter Details Date Type Department Care Team (Late st Contact Info) Description 01/19/2023 Refill [facility] MEDICINE [address] [place] [address] Tish Fontana FNP [address] [place] [address] Anxiety with flying Social History Tobacco Use [...] Upcoming Encounters Date Type Department Care Team ([facility] st Contact Info) Description 01/26/2025 9:15 AM EDT Office Visit [facility] MEDICINE [address] [place] [address] Tish Fontana FNP [address] [place] [address] documented as of this encounter Visit Diagnoses Diagnosis Anxiety with flying documented in this encounter Additional Health Concerns Assessment Noted Time PHQ-9 Depression Total Score: 0 12/27/19 23 11:09 AM EDT documented as of this encounter Care Teams Computer Aided Design Operator Relationship Specialty Start Date End Date Tish Fontana FNP [address] [place] [address] PCP - General Family Medicine 05/18/22 documented as of this encounter
--- OUTSIDE RECORDS SUMMARY | 2025-01-13 14:41 | XMS_ITS | Encounter Summary ---
Author Organization [employer] Address [address] [facility] 7t [place] [address] Care Team Providers Care Business Management Specialist Name Role Phone Tish Fontana Primary Care Provider [phone] Reason for Visit * Reason Comments Med Refill Encounter Details Date Type Department Care Team ([facility] st Contact Info) Description 06/30/2024 Refill [facility] MEDICINE [address] [place] [address] Tish Fontana FNP [address] [place] [address] Social History Tobacco Use Types Packs/Day Years [...] Office Visit [facility] MEDICINE [address] [place] [address] Tish Fontana FNP [address] [place] [address] documented as of this encounter Visit Diagnoses Not on filedocumented in this encounter Additional Health Concerns Assessment Noted Time PHQ-9 Depression Total Score: 8 01/14/20 24 10:46 AM EDT documented as of this encounter Care Teams Business Management Specialist Relationship Specialty Start Date End Date Tish Fontana FNP [address] [place] [address] PCP - General Family Medicine 05/18/22 documented as of this encounter
--- OUTSIDE RECORDS SUMMARY | 2025-01-13 14:41 | XMS_ITS | Encounter Summary ---
Author Organization [employer] Address [address] [facility] [address] 7t [place] [address] Care Team Providers Care Tax Representative Name Role Phone Tish Fontana Primary Care Provider [phone] Reason for Visit * Reason Onset Date Comments Nurse Triage 07/14/2023 Encounter Details Date Type Department Care Team ([facility] Contact Info) Description 07/14/2023 Telephone [facility] MED & PEDS [address] [place], [place] [phone] Tish Fontana FNP [address] [place], [place] [phone] Nurse Triage Social History Tobacco Use Types Packs/Day Years Used Date Smoking Tobacco: Never Smokeless Tobacco: Never Depression Answer Date Recorded Patient Health Questionnaire-9 Score 0 12/26/2022 Housing Stability Answer Date Recorded What is your housing situation today? I have oswaldo rush 07/14/[address] you [...] Description 01/26/2025 9:15 AM EDT Office Visit [facility] MEDICINE [address] [place] [address] Tish Fontana FNP [address] [place] [address] documented as of this encounter Visit Diagnoses Not on filedocumented in this encounter Additional Health Concerns Assessment Noted Time PHQ-9 Depression Total Score: 0 12/27/19 23 11:09 AM EDT documented as of this encounter Care Teams Tax Representative Relationship Specialty Start Date End Date Tish Fontana FNP [address] [place] [address] PCP - General Family Medicine 05/18/22 documented as of this encounter
--- OUTSIDE RECORDS SUMMARY | 2025-01-13 14:41 | XMS_ITS | Encounter Summary ---
Author Organization [employer] Address [address] [place] [address] 7 [place] [address] Care Team Providers Care Consultants Intern Name Role Phone Tish Fontana Primary Care Provider [phone] Encounter Details Date Type Department Care Team (Latest Contact Info) Description 03/05/2021 Abstract [facility] CONVERSIONS Dental, Provider, DDS Social History Tobacco [...] Description 01/26/2025 9:15 AM EDT Office Visit [facility] MEDICINE [address] [place] [address] Tish Fontana FNP [address] [place] [address] documented as of this encounter Visit Diagnoses Not on filedocumented in this encounter Care Teams Consultants Intern Relationship Specialty Start Date End Date Tish Fontana FNP [address] [place] [address] PCP - General Family Medicine 05/18/22 documented as of this encounter
--- OUTSIDE RECORDS SUMMARY | 2025-01-13 14:41 | XMS_ITS | Encounter Summary ---
Author Organization [employer] Address [address] [facility] 7t [place] [address] Care Team Providers Care Home Aide Name Role Phone Tish Fontana Primary Care Provider [phone] Reason for Visit * Reason Comments Med Refill Encounter Details Date Type Department Care Team ([facility] st Contact Info) Description 06/22/2024 Refill [facility] MEDICINE [address] [place] [address] Tish Fontana FNP [address] [place] [address] Social History Tobacco Use Types Packs/Day Years [...] Description 01/26/2025 9:15 AM EDT Office Visit [facility] MEDICINE [address] [place] [address] Tish Fontana FNP [address] [place] [address] documented as of this encounter Visit Diagnoses Not on filedocumented in this encounter Additional Health Concerns Assessment Noted Time PHQ-9 Depression Total Score: 8 01/14/20 24 10:46 AM EDT documented as of this encounter Care Teams Home Aide Relationship Specialty Start Date End Date Tish Fontana FNP [address] [place] [address] PCP - General Family Medicine 05/18/22 documented as of this encounter
--- OUTSIDE RECORDS SUMMARY | 2025-01-13 14:41 | XMS_ITS | Encounter Summary ---
Author Organization [employer] Address [address] 7t [place] [address] Care Team Providers Care Scouring Machine Operator Name Role Phone Tish Fontana Primary Care Provider [phone] Reason for Visit * Reason Comments Med Refill Encounter Details Date Type Department Care Team ([facility] st Contact Info) Description 01/10/2024 Refill [facility] MEDICINE [address] [place] [address] Tish Fontana FNP [address] [place] [address] Supraventricular tachycardia (CMS/HCC) Social History Tobacco Use [...] Description 01/26/2025 9:15 AM EDT Office Visit [facility] MEDICINE [address] [place] [address] Tish Fontana FNP [address] [place] [address] documented as of this encounter Visit Diagnoses Diagnosis Supraventricular tachycardia (CMS/HCC) Other specified cardiac dysrhythmias documented in this encounter Additional Health Concerns Assessment Noted Time PHQ-9 Depression Total Score: 0 12/27/19 23 11:09 AM EDT documented as of this encounter Care Teams Scouring Machine Operator Relationship Specialty Start Date End Date Tish Fontana FNP [address] [place] [address] PCP - General Family Medicine 05/18/22 documented as of this encounter
--- OUTSIDE RECORDS SUMMARY | 2025-01-13 14:41 | XMS_ITS | Encounter Summary ---
Author Organization [employer] Address [address] [place] [address] 7 [place] [address] Care Team Providers Care Collision Center Manager Name Role Phone Tish Fontana Primary Care Provider [phone] Encounter Details Date Type Department Care Team (Late st Contact Info) Description 01/29/2023 Abstract [facility] MEDICINE [address] [place], [place] [phone] Tish Fontana FNP [address] [place], [place] [phone] Social History Tobacco Use Types Packs/Day Years [...] Description 01/26/2025 9:15 AM EDT Office Visit [facility] MEDICINE [address] [place], [place] [phone] Tish Fontana FNP [address] [place], [place] [phone] documented as of this encounter Procedures Procedure [...] documented as of this encounter Care Teams Collision Center Manager Relationship Specialty Start Date End Date Tish Fontana FNP [address] [place] [address] PCP - General Family Medicine 05/18/22 documented as of this encounter
--- OUTSIDE RECORDS SUMMARY | 2025-01-13 14:41 | XMS_ITS | Clinical Summary ---
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 100 each 11 Active glucose blood (FREESTYLE LITE) test stripIndication s:Type 2 diabetes mellitus without complication, without long-term current use of insulin ([facility]) USE TO TEST BLOOD SUGAR ONCE EVERY [...] spasms. 60 tablet 1 025 2024 Active Diclofenac Sodium 1 % [...] eorder (will not trigger notification to Pharmacy)) methylPREDNISol one (Medrol Dospak) 4 MG tablets Follow schedule on package instructions 21 tablet 025 2024 traMADol (Ultram) 50 MG tabletIndicatio ns:Acute bilateral low back pain with right-sided sciatica Take 1 tablet (50 mg) by mouth every 8 (eight) hours if needed for severe pain for up to 5 days. 15 tablet 025 2024 Active Problems Problem Noted Date Diagnosed Date [...] Plan (04/06/2024 5:24 PM EDT): Following with [facility] - Dr. Qiunn Identified on US 02/19/24 - tiny 1cm intramural myoma in left body of the uterus. Plan: expectant management with repeat pelvic US periodically Postcoital bleeding 04/06/2024 Assessment & Plan (06/27/2024 4:06 PM EDT): Following with [facility] - Dr. Quinn. Pelvic US 01/30/24: 1. [...] mild atypia, suspicious for ARISTIDES 1 03/23/24: [facility] - Dr. Quinn. Recommended co-testing in 12 months. Plan to call if she experiences any more vaginal bleeding (PCB) Had consult at [facility] for consideration of lap hysterectomy, encouraged to defer at this time Assessment & Plan (04/06/2024 5:28 PM EDT): Following with [facility] Joe Quinn. Pelvic US 01/30/24: 1. Tiny [...] this week to discuss next steps with INVESTMENT DIRECTOR. Given her PMB, PCB, and family history, [...] neg 09/2017, HPV neg 01/15/22. Following with [facility] -Mammogram: 01/08/24 BIRADS 1 -Colonoscopy: normal 2015, due 2025 -Optometry: [facility] Jul 2023 -Dental: established with [facility] Dental Essential hypertension 09/11/2022 Overview (12/26/2022): -Well [...] week as able. -Eye: Jul 2023 at [facility] -Microalbumin 24 December 2022 [...] Encounters Date Type Department Care Team Description 01/07/2025 Telephone [facility] MEDICINE [address] [place] [address] Tish Fontana FNP Results 12/30/2024 2:40 PM EDT Office Visit [facility] [address] [place] [address] Emely Valerio DO Acute bilateral low back pain with right-sided sciatica (Primary Dx); Bilateral hip pain; COVID-19 virus infection 12/30/2024 Travel 12/17/2024 2:00 PM EDT Office Visit [facility] OPT[facility] [address] [place] [address] Javon, Sindy, OD Diabetes type 2, 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) (Primary Dx); [place] of macula of both eyes; Combined forms of age-related cataract of both eyes; Presbyopia 12/17/2024 Travel 12/08/2024 Telephone [facility] [address] [place], [place] [phone] Tish Fontana FNP November12/03/2024 Population Health Risk Score [facility] Department [address] [phone] Provider, Population Health Generic 11/05/2024 2:20 PM EST Office Visit [facility] [address] [place] [address] Soo Su FNP Cough, unspecified type (Primary Dx); Acute URI 11/02/2024 Refill [facility] [address] [place] [address] Tish Fotnana FNP from Last 3 Months Immunizations Name [...] the past 12 months, has t he [employer], gas, oil or water company threatened to [...] 9:15 AM EDT Office Visit [facility] MEDICINE [address] [place] [address] Tish Fontana FNP [address] [place], [place] [phone] Health Maintenance Due Date Last Done Comments [...] PM EDT Narrative 12/30/2024 3:32 PM EDT ?[facility] ?[address] ?[place] [address] ?XRay Report ? Signed ? Patient: Ramses,Lucie E ?MR#: [id number] ? : 1965 ?Acct:[id number] ? Age/Sex: 59 / F ?ADM Date: 04/10/25 ? Loc: HO.HHCX ? Attending Dr: Emely Valerio DO ? Ordering Physician: Emely Valerio DO ?? Date of Service: 12/30/24 ?? Procedure(s): XR hip RT min 2V ?? Accession Number(s): [id number] ? cc: Emely Valerio DO ? EXAMINATION: [...] DD/ 1458 ? TD/TT: 12/30/24 1500 ? Cart Attendant: ? Procedure Note Johnathandavideusebiorogers, Image - 12/30/[address] [address] XRay Report Signed Patient: Lucie Arguelles EMR#: [id number] : 1965Acct:[id number] Age/Sex: 59 / FADM Date: 12/30/24 Loc: HO.HHCX Attending Dr: Emely Valerio DO Ordering Physician: Emely Valerio DO Date of Service: 12/30/24 Procedure(s): XR hip RT min 2V Accession Number(s): [id number] cc: Emely Valerio DO EXAMINATION: XR HIP, RIGHT CLINICAL INFORMATION: acute worsening LBP x one mos with b/l hip pain COMPARISON: 10/25/2019. TECHNIQUE: Two views of the right hip. FINDINGS: No fracture. Alignment is anatomic. Hip joint space is maintained. Soft tissues are unremarkable. XR/XR hip RT min 2V IMPRESSION: Normal right hip. Electronically signed by: Les Ro MD 12/30/2024 03:29 PM EDT RP Dictated By: Les Ro MD Signed By: <Electronically signed by Les Ro MD in OV> 12/30/24 1529 DD/ 1458 TD/TT: 12/30/24 1500 Cart Attendant: us Emely Valerio DO IMG XR PROCEDURES Final Resu lt * XR Hip 2 or 3 Views Left (12/30/2024 2:58 PM EDT) Anatomical Region Laterality Modality Lower Extremities, Hip Left Radiograp hic Imaging 12/30/2024 2:58 PM EDT Narrative 12/30/2024 3:31 PM EDT ?[facility] ?[address] ?[place] [address] ?XRay Report ? Signed ? Patient: Ramses,Lucie E ?MR#: [id number] ? : 1965 ?Acct:[id number] ? Age/Sex: 59 / F ?ADM Date: 12/30/24 ? Loc: HO.HHCX ? Attending Dr: Emely Valerio DO ? Ordering Physician: Emely Valerio DO ?? Date of Service: 12/30/24 ?? Procedure(s): XR hip LT min 2V ?? Accession Number(s): [id number] ? cc: Emely Valerio DO ? EXAMINATION: [...] MD in OV> ?04/10/25 1528 ? DD/DT: 04/10/ 1458 ? TD/TT: 04/10/25 1500 ? Cart Attendant: ? Procedure Note Donmary graceter, Image - 12/30/2024 [facility] [address] [place] [address] XRay Report Signed Patient: Lucie Arguelles EMR#: [id number] : 1965Acct:[id number] Age/Sex: 59 / FADM Date: 12/30/24 Loc: HO.HHCX Attending Dr: Emely Valerio DO Ordering Physician: Emely Valerio DO Date of Service: 12/30/24 Procedure(s): XR hip LT min 2V Accession Number(s): [id number] cc: Emely Valerio DO EXAMINATION: XR HIP, [...] 12/30/24 1528 DD/ 1458 TD/TT: 12/30/24 1500 Cart Attendant: Emely Valerio DO IMG XR PROCEDURES Final Resu lt * XR Lumbar Spine 2-3 Views (12/30/2024 2:58 PM EDT) Anatomical Region Laterality Modality Spine, L-spine Radiographic Flor ging 12/30/2024 2:58 PM EDT Narrative 12/30/2024 3:37 PM EDT ?[facility] ?[address] ?[place] [address] ?XRay Report ? Signed ? Patient: Ramses,Lucie E ?MR#: [id number] ? : 1965 ?Acct:[id number] ? Age/Sex: 59 / F ?ADM Date: 04/10/25 ? Loc: HO.HHCX ? Attending Dr: Emely Valerio DO ? Ordering Physician: Emely Valerio DO ?? Date of Service: 12/30/24 ?? Procedure(s): XR lumbar spine 2-3V ?? Accession Number(s): [id number] ? cc: Emely Valerio DO ? EXAMINATION: ?? XR LUMBOSACRAL SPINE ? CLINICAL INFORMATION: ?? acute worsening LBP x one mos with b/l hip pain ? COMPARISON: ?? 06/22/2014. ?? MRI lumbar 01/02/2018. ? TECHNIQUE: ?? Three views of the lumbosacral spine. ? FINDINGS: ?? Moderate levoconvex scoliosis, worsened since 2013. Brice at L2. There ?? is a rotatory [...] DD/ 1458 ? TD/TT: 12/30/24 1500 ? Cart Attendant: ? Procedure Note Alverto, Image - 12/30/2024 [facility] [address] [place] [address] XRay Report Signed Patient: Lucie Arguelles EMR#: [id number] : 1965Acct:[id number] Age/Sex: 59 / FADM Date: 12/30/24 Loc: HO.HHCX Attending Dr: Emely Valerio DO Ordering Physician: Emely Valerio DO Date of Service: 12/30/24 Procedure(s): XR lumbar spine 2-3V Accession Number(s): [id number] cc: Emely Valerio DO EXAMINATION: XR LUMBOSACRAL SPINE CLINICAL INFORMATION: acute worsening LBP x one mos with b/l hip pain COMPARISON: 06/22/2014. MRI lumbar 01/02/2018. TECHNIQUE: Three views of the lumbosacral spine. FINDINGS: Moderate levoconvex scoliosis, worsened since 2013. Brice at L2. There is a rotatory component. [...] 12/30/24 1534 DD/ 1458 TD/TT: 12/30/24 1500 Cart Attendant: us Emely Jurcsak DO IMG XR PROCEDURES Final Resu lt * OCT, Retina - OU - Both Eyes (12/17/2024 3:21 PM EDT) Sindy Rivera, OD - 12/27/2024 11:23 AM EDT Images [...] when outdoors. Will monitor in 1 year. Sindy Alejandro OD OPHTH TOMOGRAPHY Final Result * POCT RSV (ID NOW rapid antigen) (11/05/2024 2:21 PM EST) [facility] RSV Rapid Ag POC Negative Negative Swab 11/05/2024 2:21 PM EST Result [facility] POINT OF CARE TEST ENTER/EDIT O RDERABLES Final Result * Influenza B (ID NOW Rapid Molecular) (11/05/2024 2:21 PM EST) [facility] Influenza B Negative Negative, Indeterminate [facility] Swab 11/05/2024 2:21 PM EST SooBackType MICROPALEONTOLOGIST POINT OF CARE TEST ENTER/EDIT O RDERABLES Final Result [facility] [address] [place] [phone] * Influenza A (ID NOW Rapid Molecular) (11/05/2024 2:21 PM EST) [facility] Influenza A Negative Negative, Indeterminate [facility] Swab 11/05/2024 2:21 PM EST Soo Sharlene MICROPALEONTOLOGIST POINT OF CARE TEST ENTER/EDIT O RDERABLES Final Result [facility] [address] [place] [address] [phone] * POCT Rapid COVID Ag (11/05/2024 2:21 PM EST) [facility] Rapid COVID Ag Negative Swab 11/05/2024 2:21 PM EST Soo Ceronflip MICROPALEONTOLOGIST POINT OF CARE TEST ENTER/EDIT O RDERABLES Final Result * (ABNORMAL) POCT HGB A1C (06/25/2024 2:12 PM EDT) [facility] Hemoglobin A1C 6.4(A) 4.0 - 6.0 % QC Media Lot # [id number] Lot# Expiration Date [id number] Blood 06/25/2024 2:12 PM EDT Result [facility] Tish Fontana MICROPALEONTOLOGIST POINT OF CARE TEST ENTER/EDIT ORDERABLES Final Result * BI Mammogram Screening Tomosynthesis Bilateral (01/08/2024 3:30 PM EDT) Anatomical Region Laterality Modality Breast Bilateral Mammography 01/08/2024 3:30 PM EDT Narrative 02/08/2024 9:54 PM EDT ? [place] [facility] ? [address] ?[place] [address] ? Mammography Report ? Signed ? Patient: Ramses,Lucie E ?MR#: [id number] ? : 1965 ?Acct:[id number] ? Age/Sex: 58 / F ?ADM Date: 04/18/24 ? Loc: HO.MAMMO ? Attending Dr: Jean Quinn MD ? Ordering Physician: Jean Quinn MD ?Results: 1Negativ ?? e ? Date of Service: 01/08/24 ?Follow Up: 1 Year From Orig ?? inal Mammogram ? Procedure(s): MM tomosynthesis screening BI ?? Accession Number(s): [id number] ? cc: Tish Fontana; Jean Quinn MD ? EXAMINATION: ?? MM SCREENING DIGITAL BREAST TOMOSYNTHESIS, BILATERAL ? CLINICAL INFORMATION: ? Screening. Asymptomatic. ? COMPARISON: ?? Mammography: This study is compared with prior exams dating back to ?? 2019. ? TECHNIQUE: ?? Digital breast tomosynthesis is [...] MD in OV> ? 02/08/242149 ? DD/ 1530 ? TD/TT: ? Cart Attendant: ? Procedure Note Donoteusebiointerpreter, Image - 02/08/20[facility] [address] [place], [place] [address] Mammography Report Signed Patient: Lucie Arguelles EMR#: [id number] : 1965Acct:[id number] Age/Sex: 58 / FADM Date: 01/08/24 Loc: HO.MAMMO Attending Dr: Jean Quinn MD Ordering Physician: Jean Quinn MDResults: 1Negativ e Date of Service: 01/08/24Follow Up: 1 Year From Orig inal Mammogram Procedure(s): MM tomosynthesis screening BI Accession Number(s): [id number] cc: Tish Fontana; Jean Quinn MD EXAMINATION: [...] in OV> 02/08/24 2150 DD/ 1530 TD/TT: Cart Attendant: [facility] External Provider IMG BI PROCEDURES Edited Result - Final * HIV-1 RNA, Quantitative, PCR with Reflex to Genotype (12/26/2022 12:02 PM EDT) HIV 1 RNA, QN PCR Not Detected Copies/mL [facility] HIV 1 RNA, QN PCR Not Detected Log cps/mL [facility] Comment: Reference Range: ?Not Detected ? copies/mL ?Not Detected Log copies/mL The test was performed using Real-Time Polymerase Chain Reaction. ? Reportable Range: 20 copies/mL to 10,000,000 copies/mL (1.30 Log copies/mL to 7.00 Log copies/mL). 12/26/2022 12:0 2 PM EDT 12/26/2022 12:03 PM EDT Tish Fontana [facility] LAB BLOOD ORDERABLES Final Res ult [facility] [address], [place] [address] [facility] [address] [facility] [place] [address] * Albumin, Random Urine W/Creatinine (12/26/2022 12:02 PM EDT) Creatinine, Random Urine 264 20 - 275 mg/dL [facility] Albumin, Urine 1.1 See Note: mg/dL [facility] Comment: Reference Range: Reference Range Not established Albumin/Creatinin e Ratio, Random Urine 4 <30 mcg/mg creat [facility] Comment: The ADA defines abnormalities in albumin [...] 2 PM EDT 12/26/2022 12:03 PM EDT us Tish ARELLANOP LAB URINE ORDERABLES Final Res ult [facility] [address], [place] [address] [facility] [address] [place] [address] * Hepatitis C Antibody with Reflex to HCV, RNA, Quantitative, Real-Time PCR (12/26/2022 12:02 PM EDT) Hepatitis C Antibody NON-REACT DANO NON-REACT DANO [facility] Index 0.05 <1.00 [facility] Comment: HCV antibody was non-reactive. There is no laboratory evidence of HCV infection. In most cases, no further action is required. However, if recent HCV exposure is suspected, a test for HCV RNA (test code 78711) is suggested. For additional information please refer to http://education.[employer]/faq/YRW50v5 (This link is being provided for informational/ educational purposes only.) Blood Venous blood specimen / Unknown 12/26/2022 12:02 PM EDT 12/26/2022 12:03 PM EDT us Tish ARELLANOP LAB BLOOD ORDERABLES Final Res ult Performing Organization Address [facility]/ZIP Co de Phone Number [facility] [address], [place] [address] [facility] [address] [place] [address] * Lipid Panel, Standard (12/26/2022 12:02 PM EDT) Cholesterol, Total 157 <200 mg/dL [facility] HDL Cholesterol 62 > OR = 50 mg/dL [facility] Triglycerides 56 <150 mg/dL [facility] LDL Cholesterol 81 mg/dL (calc) [facility] Comment: Reference range: <100 Desirable range <100 mg/dL for primary prevention; ?? <70 mg/dL for patients with CHD or diabetic patients with > or = 2 CHD risk factors. LDL-C is now calculated using the Bettye calculation, which is a validated novel method providing better accuracy than the Friedewald equation in the estimation of LDL-C. Cezar GARCIA et al. SALMA. 2013;310(19): 3315-6844 (http://education.[employer]/faq/OTL504) Chol/HDLC Ratio 2.5 <5.0 (calc) [facility] Non-HDL Cholesterol 95 <130 mg/dL (calc) [facility] Comment: For patients with diabetes plus 1 major ASCVD risk factor, treating to a non-HDL-C goal of <100 mg/dL (LDL-C of <70 mg/dL) is considered a therapeutic option. Blood Venous blood specimen / Unknown 12/26/2022 12:02 PM EDT 12/26/2022 12:03 PM EDT Tish Fontana [facility] LAB BLOOD ORDERABLES Final Res ult Performing Organization Address [facility]/ZIP Co de Phone Number [facility] [address], [place] [address] [facility] [address] [place] [address] * HPV E6/E7 RFLX TANNER 16 18/45 (01/15/2022 2:53 PM EDT) HPV 16 RNA [facility] HPV 18/45 RNA [facility] HPV E6 E7 ADD [facility] HPV mRNA E6/E7 rflx Not Detected Not Detected [facility] Comment: Methodology: Lymphedema Therapist-Mediated Amplification This assay detects E6/E7 viral messenger RNA (mRNA) from 14 high-risk HPV types (16,18,31,33,35,39,45,51,52,56,58,59,66,68). The analytical performance characteristics of this assay have been determined by [facility]. The modifications have not been cleared or approved by the FDA. This assay has been validated pursuant to the CLIA regulations and is used for clinical purposes. For additional information, please refer to http://education.[employer]us/faq/VWP186l6 (This link if provided for information/ educational purposes only.) THIS TEST WAS PERFORMED AT: [facility] [address] [place] [address] [address] [place], [place] ??[address] TINY HYLTON MD 01/15/2022 2:53 PM EDT Jean Quinn MD HISTORICAL/NON ORDERABLE LABS Fi nal Result [facility] [address] * Colonoscopy (09/10/2016) Pathologist [facility] Colonoscopy Normal Normal 09/10/2016 Narrative Ruth Rob - 09/10/2016 11:20 AM EST Recommended 10 year follow up Historical Provider HEALTH MAINTENANCE Edited Result - Final from Last 3 Months or Most Recently Relevant to Health Maintenance Insurance [facility] C3 Care Teams Interactive Marketing Strategist Relationship Specialty Start Date End Date Tish Fontana FNP [address] [place] [address] PCP - General Family Medicine 05/18/22
--- OUTSIDE RECORDS SUMMARY | 2025-01-13 14:41 | XMS_ITS | Encounter Summary ---
Author Organization [employer] Address [address] [facility] 7t [place] [address] Care Team Providers Care Overhead Crane Technician Name Role Phone Tish Fontana Primary Care Provider [phone] Reason for Visit * Reason Comments Med Refill Encounter Details Date Type Department Care Team ([facility] st Contact Info) Description 07/16/2024 Refill [facility] MEDICINE [address] [place] [address] Tish Fontana FNP [address] [place] [address] Social History Tobacco Use Types Packs/Day Years [...] Description 01/26/2025 9:15 AM EDT Office Visit [facility] [address] [place] [address] Tish Fontana FNP [address] [place] [address] documented as of this encounter Visit Diagnoses Not on filedocumented in this encounter Additional Health Concerns Assessment Noted Time PHQ-9 Depression Total Score: 8 01/14/20 24 10:46 AM EDT documented as of this encounter Care Teams Overhead Crane Technician Relationship Specialty Start Date End Date Tish Fontana FNP [address] [place] [address] PCP - General Family Medicine 05/18/22 documented as of this encounter
== END 2025-01-13 12:25 | disposition home or self-care (01) ==
LOC: HO.MAMMO 12:24
PROVIDERS: PCP Registered Nurse; Visit Provider Registered Nurse
DX: Z12.31 Encounter for screening mammogram for malignant neoplasm of breast (principal)
CPT/HCPCS: 77063; 77067

== ENCOUNTER → 2025-01-13 13:30 | Outpatient (BNV) | payer MEDICAID, SELFPAY | PROVIDERS: PCP Registered Nurse; Visit Provider Internal Medicine | DX: Z12.31 Encounter for screening mammogram for malignant neoplasm of breast (principal) | CPT/HCPCS: 77063; 77067 ==

== ENCOUNTER 2025-01-26 10:39 | Outpatient (REF) | payer MEDICAID, SELFPAY ==
--- OUTSIDE RECORDS SUMMARY | 2025-01-26 11:55 | XMS_ITS | Encounter Summary ---
Author Organization [employer] Address [address] [place] [address] Care Team Providers Care Display Card Writer Name Role Phone Tish Fontana Primary Care Provider [phone] Reason for Visit * Reason Comments Med Refill Encounter Details Date Type Department Care Team ([facility] st Contact Info) Description 06/30/[address] [facility] [address] [place] [address] Tish Fontana FNP [address] [place] [address] Social History Tobacco Use Types Packs/Day Years [...] Care Team (Late st Contact Info) Description 04/27/2025 10:00 AM EDT Office Visit [facility] [address] [place] [address] Tish Fontana FNP [address] [place] [address] documented as of this encounter Visit Diagnoses Not on filedocumented in this encounter Additional Health Concerns Assessment Noted Time PHQ-9 Depression Total Score: 8 01/14/20 24 10:46 AM EDT documented as of this encounter Care Teams Display Card Writer Relationship Specialty Start Date End Date Tish Fontana FNP [address] [place] [address] PCP - General Family Medicine 05/18/22 documented as of this encounter
--- OUTSIDE RECORDS SUMMARY | 2025-01-26 11:55 | XMS_ITS | Encounter Summary ---
Author Organization [employer] Address [address] [place] [address] Care Team Providers Care Pot Puncher Name Role Phone Tish Fontana Primary Care Provider [phone] Reason for Visit * Reason Comments Med Refill Encounter Details Date Type Department Care Team ([facility] st Contact Info) Description 07/16/2024 Refill [facility] [address] [place] [address] Tish Fontana FNP [address] [place] [address] Social History Tobacco Use Types Packs/Day Years [...] Description 04/27/2025 10:00 AM EDT Office Visit [facility] [address] [place] [address] Tish Fontana FNP [address] [place] [address] documented as of this encounter Visit Diagnoses Not on filedocumented in this encounter Additional Health Concerns Assessment Noted Time PHQ-9 Depression Total Score: 8 01/14/20 24 10:46 AM EDT documented as of this encounter Care Teams Pot Puncher Relationship Specialty Start Date End Date Tish Fontana FNP [address] [place] [address] PCP - General Family Medicine 05/18/22 documented as of this encounter
--- OUTSIDE RECORDS SUMMARY | 2025-01-26 11:55 | XMS_ITS | Encounter Summary ---
Author Organization [employer] Address [address] [place] [address] Care Team Providers Care Completions Engineer Name Role Phone Tish Fontana Primary Care Provider [phone] Encounter Details Date Type Department Care Team ([facility] st Contact Info) Description 01/26/2025 9:15 AM EDT Office Visit [facility] [address] [place] [address] Tish Fontana FNP [address] [place], [place] [phone] Routine health maintenance (Primary Dx); Dietary counseling; Exercise counseling; Encounter for routine history and physical examination of adult; Type 2 diabetes mellitus without complication, without long-term current use of insulin (CMS/HCC); Essential hypertension; Supraventricular tachycardia (CMS/HCC); Generalized pruritus; Constipation, unspecified constipation type; Seasonal allergies Social History Tobacco Use Types Packs/Day Years Used Date Smoking Tobacco: Never Smokeless Tobacco: Never Depression Answer Date Recorded Patient Health Questionnaire-9 Score 9 01/26/2025 Patient Health Questionnaire-9 Score 9 01/26/2025 Last PHQ-9: Questionnaire Data Not on file 0 01/26/2025 Housing Stability Answer Date Recorded What is your housing situation today? I have oswaldo rush 01/26/[address] you li ve. Do you have problems with any of the following? Pests such as bugs, ants, or mice 01/26/2025 Food Insecurity Answer Date Recorded Within the past 12 months, y ou worried that your food would run out before you got money to buy more: Never True 2024 Within the past 12 months,th e food you bought just didn't last and you didn't have enough money to get more: Sometimes True 01/26/2025 Transportation Answer Date Recorded In the past 12 months, has l ack of transportation kept you from medical appts, meetings, work or from getting things needed for daily living? No 01/26/2025 Utilities Answer Date Recorded In the past 12 months, has t he electric, gas, oil or water company threatened to shut off services in your home? Yes 01/26/2025 Depression Answer Date Recorded Patient Health Questionnaire-2 Score 2 01/26/2025 Internet Access Answer Date Recorded Internet Access Q1 Yes 01/26/2025 Internet Access Q2 Not on file 01/26/2025 Comments Unknown Sex and Gender Information Value Date Recorded Sex Assigned at Female 07/22/2022 10:14 AM EDT Legal Sex Female 10:14 AM EDT Gender Identity Female 07/22/2022 10:14 AM EDT Sexual Orientation Straight 07/22/2022 10 :14 AM EDT documented as of this encounter Last Filed Vital Signs Vital Sign Reading Time Taken Comments Blood Pressure 150/88 01/26/2025 9:16 AM EDT Pulse 72 01/26/2025 9:14 AM EDT Temperature 36.1 ??C (96.9 ??F) 01/26/2025 9:14 AM ED T Respiratory Rate 22 01/26/2025 9:14 AM EDT Oxygen Saturation 98% 01/26/2025 9:14 AM EDT Inhaled Oxygen Concentration - - Weight 87.6 kg (193 lb 2 oz) 01/26/2025 9:14 AM EDT Height 156.2 cm (5' 1.5 ) 01/26/2025 9:14 AM EDT Body Mass Index 35.9 01/26/2025 9:14 AM EDT documented in this encounter Plan of Treatment Upcoming Encounters Date Type Department Care Team (Late st Contact Info) Description 04/27/2025 10:00 AM EDT Office Visit [facility] [address] [place], [place] [phone] Tish Fontana FNP [address] [place] [address] Scheduled Orders Name Type Priority Associated Diagnoses Orde r Schedule Albumin, Random Urine W/Creatinine Lab Routine Encounter for routine history and physical examination of adult Expected: 01/26/2025 (Approximate), Expires: 01/26/2026 Lipid Panel, Standard Lab Routine Encounter for routine history and physical examination of adult Expected: 01/26/2025 (Approximate), Expires: 01/26/2026 Hemoglobin A1c Lab Routine Encounter for routine history and physical examination of adult Expected: 01/26/2025 (Approximate), Expires: 01/26/2026 TSH with Reflex to Free T4 Lab Routine Encounter for routine history and physical examination of adult Expected: 01/26/2025 (Approximate), Expires: 01/26/2026 Comprehensive Metabolic Panel Lab Routine Encounter for routine history and physical examination of adult Expected: 01/26/2025 (Approximate), Expires: 01/26/2026 CBC auto differential Lab Routine Encounter for routine history and physical examination of adult Expected: 01/26/2025, Expires: 01/26/2026 Chlamydia/N. Gonorrhoeae RNA, TMA, Urogenitial Microbiology Routine Encounter for routine history and physical examination of adult Expected: 01/26/2025, Expires: 01/26/2026 Hepatitis C Viral RNA, Quantitative, Real-Time PCR Lab Routine Encounter for routine history and physical examination of adult Expected: 01/26/2025 (Approximate), Expires: 01/26/2026 RPR (Monitor) with Reflex to??Titer Lab Routine Encounter for routine history and physical examination of adult Expected: 01/26/2025 (Approximate), Expires: 01/26/2026 HIV-1/2 Antigen and Antibodies, Fourth Generation, with Reflexes Lab Routine Encounter for routine history and physical examination of adult Expected: 01/26/2025 (Approximate), Expires: 01/26/2026 Magnesium Lab Routine Encounter for routine history and physical examination of adult Expected: 01/26/2025, Expires: 01/26/2026 Vitamin B12/Folate, Serum Panel Lab Routine Encounter for routine history and physical examination of adult Expected: 01/26/2025, Expires: 01/26/2026 Iron And Total Iron Binding Capacity Lab Routine Encounter for routine history and physical examination of adult Expected: 01/26/2025, Expires: 01/26/2026 Ferritin Lab Routine Encounter for routine history and physical examination of adult Expected: 01/26/2025, Expires: 01/26/2026 Vitamin D, 25-Hydroxy, Total, Immunoassay Lab Routine Encounter for routine history and physical examination of adult Expected: 01/26/2025 (Approximate), Expires: 01/26/2026 documented as of this encounter Procedures Procedure Name Priority Date/Time Associated Diagnosis Comments POCT GLYCATED HEMOGLOBIN, TOTAL Routine 01/26/2025 9:21 AM EDT Type 2 diabetes mellitus without complication, without long-term current use of insulin ([facility]) POCT GLUCOSE Routine 01/26/2025 9:21 AM EDT Type 2 diabetes mellitus without complication, without long-term current use of insulin ([facility]) documented in this encounter Results * (ABNORMAL) POCT HGB A1C (01/26/2025 9:21 AM EDT) Hemoglobin A1C 6.5(A) 4.0 - 6.0 % QC Media Lot # [id number] Lot# Expiration Date , Blood 01/26/2025 9:21 AM EDT us Tish ARELLANOP POINT OF CARE TEST ENTER/EDIT ORDERABLES Final Result * POCT Glucose (01/26/2025 9:21 AM EDT) Glucose Blood, POC 136 60 - 200 mg/dL Comment:Fasting QC [employer] Lot # [id number] Lot# Expiration Date Blood Capillary blood specimen / Unknown 01/26/2025 9:21 AM EDT us Tish Fontana PASTA [employer] POINT OF CARE TEST ENTER/EDIT ORDERABLES Edited Result - Final documented in this encounter Visit Diagnoses Diagnosis Routine health maintenance- Primary Unspecified examination Dietary counseling Dietary surveillance and counseling Exercise counseling Encounter for routine history and physical examination of adult Type 2 diabetes mellitus without complication, without long-term current use of insulin ([facility]) Essential hypertension Unspecified essential hypertension Supraventricular tachycardia ([facility]) Other specified cardiac dysrhythmias Generalized pruritus Unspecified pruritic disorder Constipation, unspecified constipation type Seasonal allergies Allergic rhinitis, cause unspecified documented in this encounter Additional Health Concerns Assessment Noted Time PHQ-9 Depression Total Score: 9 01/27/20 25 9:27 AM EDT documented as of this encounter Care Teams Completions Engineer Relationship Specialty Start Date End Date Tish Fontana FNP [address] [place] [address] PCP - General Family Medicine 05/18/22 documented as of this encounter
--- OUTSIDE RECORDS SUMMARY | 2025-01-26 11:55 | XMS_ITS | Clinical Summary ---
Author Organization [employer] Address [address] [place] [address] Care Team Providers Care Differential Repairer Name Role Phone Tish Fontana REGIONAL SALES CONSULTANT Primary Care Provider [phone] Allergies Active Allergy Reactions Criticality Noted Date Comments Citalopram 12/01/2019 Methocarbamol Insomnia High 03/12/2024 Medications Alcohol Swabs (B-D SINGLE USE SWABS REGULAR) pads USE BEFORE CHECKING BLOOD SUGAR 100 each 11 024 Active fluticasone (Flonase) 50 MCG/ACT nasal sprayIndication s:Pharyngitis, unspecified etiology,Season al allergies APPLY ONE SPRAY IN EACH NOSTRIL TWICE A DAY NEEDED 48 g 3 024 Active FreeStyle lancetsIndicati ons:Type 2 diabetes mellitus without complication, unspecified whether senior living insulin use ([facility]) 1 each by Other route Once per day. 100 each 11 024 Active glucose blood (FREESTYLE LITE) test stripIndication s:Type 2 diabetes mellitus without complication, without long-term current use of insulin ([facility]) USE TO TEST BLOOD SUGAR ONCE EVERY DAY 100 strip 3 024 Active cholecalciferol (D3 Super Strength) 50 MCG (1999 UT) capsule TAKE ONE CAPSULE BY MOUTH EVERY DAY 90 capsule 025 Active guaiFENesin (Mucinex) 600 MG 12 hr tablet Take 2 tablets (1,200 mg) by mouth 2 times daily. Do not crush, chew, or split. 120 tablet 11 025 2025 Active Multiple Vitamins-Minera ls (PreserVision AREDS) capsule Take 1 capsule by mouth 2 times daily. Take with food. 60 capsule 11 Active lidocaine (Lidoderm) 5 % patch Apply 1-2 patches topically if needed each day for mild pain. Remove & discard patch within 12 hours or as directed by MD. 60 patch Active naproxen (Naprosyn) 500 MG tabletIndicatio ns:COVID-19 virus infection Take 1 tablet (500 mg) by mouth if needed in the morning and at bedtime for mild pain or moderate pain for up to 30 doses. 30 tablet Active acetaminophen (Tylenol 8 Hour) 650 MG ER tablet Take 1 tablet (650 mg) by mouth every 8 (eight) hours if needed for mild pain. Do not crush, chew, or split. 40 tablet 2024 Active baclofen (Lioresal) 10 MG tablet Take 1 tablet (10 mg) by mouth if needed in the morning, at noon, and at bedtime for muscle spasms. 60 tablet 2024 Active Diclofenac Sodium 1 % gel Apply 2 g topically if needed in the morning, at noon, in the evening, and at bedtime (pain). 150 g Active cetirizine (ZyrTEC) 10 MG tabletIndicatio ns:Generalized pruritus TAKE ONE TABLET BY MOUTH EVERY DAY NEEDED FOR ALLERGIES 90 tablet Active dilTIAZem CD (Cardizem CD) 180 MG 24 hr capsuleIndicati ons:Supraventri cular tachycardia (CMS/HCC) TAKE TWO CAPSULES BY MOUTH EVERY DAY 180 capsule Active docusate sodium (Colace) 100 MG capsuleIndicati ons:Constipatio n, unspecified constipation type TAKE ONE CAPSULE BY MOUTH AT BEDTIME NEEDED FOR CONSTIPATION 90 capsule Active Ketotifen Fumarate 0.035 % solutionIndicat ions:Seasonal allergies Administer 1 drop into affected eye(s) if needed in the morning and at bedtime (allergies). 5 mL Active losartan (Cozaar) 50 MG tablet Take 1 tablet (50 mg) by mouth Once per day. 90 tablet Active metFORMIN XR (Glucophage-XR) 500 MG 24 hr tabletIndicatio ns:Type 2 diabetes mellitus without complication, without long-term current use of insulin ([facility]) TAKE ONE TABLET BY MOUTH TWICE A DAY 180 tablet 3 Active pantoprazole (Protonix) 40 MG EC tablet Take 1 tablet (40 mg) by mouth before breakfast. Do not crush, chew, or split. 90 tablet 1 025 2025 Active pravastatin (Pravachol) 10 MG tablet Take 1 tablet (10 mg) by mouth at bedtime. 90 tablet 3 Active PARoxetine (Paxil) 10 MG tablet Take 1 tablet (10 mg) by mouth at bedtime. 90 tablet 1 025 2025 Active tiZANidine (Zanaflex) 2 MG tablet Take [...] eorder (will not trigger notification to Pharmacy)) metFORMIN XR (Glucophage-XR) 500 MG 24 hr tabletIndicatio ns:Type 2 diabetes mellitus without complication, without long-term current use of insulin ([facility]) TAKE ONE TABLET BY MOUTH TWICE A DAY 180 tablet 3 024 2024 Discontinued(R eorder (will not trigger notification to Pharmacy)) cetirizine (ZyrTEC) 10 MG tabletIndicatio ns:Generalized pruritus TAKE ONE TABLET BY MOUTH EVERY DAY NEEDED FOR ALLERGIES 90 tablet 3 024 2024 Discontinued(R eorder (will not trigger notification to Pharmacy)) pravastatin (Pravachol) 10 MG tablet Take 1 tablet (10 mg) by mouth at bedtime. 90 tablet 3 024 2024 Discontinued(R eorder (will not trigger notification to Pharmacy)) dilTIAZem CD (Cardizem CD) 180 MG 24 hr capsuleIndicati ons:Supraventri cular tachycardia (CMS/HCC) TAKE TWO CAPSULES BY MOUTH EVERY DAY 180 capsule 1 024 2024 Discontinued(R eorder (will not trigger notification to Pharmacy)) docusate sodium (Colace) 100 MG capsuleIndicati ons:Constipatio n, unspecified constipation type TAKE ONE CAPSULE BY MOUTH AT BEDTIME NEEDED FOR CONSTIPATION 90 capsule 3 024 2024 Discontinued(R eorder (will not trigger notification to Pharmacy)) Ketotifen Fumarate 0.035 % solutionIndicat ions:Seasonal allergies Administer 1 drop into affected eye(s) if needed in the morning and at bedtime (allergies). 5 mL 3 024 2024 Discontinued(R eorder (will not trigger notification to Pharmacy)) lidocaine (Lidoderm) 5 % patch Apply 1 patch topically Once per day. Remove & discard patch within 12 hours or as directed by MD. 30 patch 3 024 2024 Discontinued(R eorder (will not trigger notification to Pharmacy)) losartan (Cozaar) 50 MG tablet Take 1 tablet (50 mg) by mouth Once per day. 90 tablet 3 024 2024 Discontinued(R eorder (will not trigger notification to Pharmacy)) pantoprazole (Protonix) 40 MG EC tablet Take 1 tablet (40 mg) by mouth before breakfast. Do not crush, chew, or split. 90 tablet 1 024 2024 Discontinued(R eorder (will not trigger [...] Plan (04/06/2024 5:24 PM EDT): Following with [facility] [place] [place] [facility] - Dr. Quinn Identified on US 02/19/24 - tiny 1cm intramural myoma in left body of the uterus. Plan: expectant management with repeat pelvic US periodically Postcoital bleeding 04/06/2024 Assessment & Plan (06/27/2024 4:06 PM EDT): Following with [facility] [place] [place] [facility] - Dr. Quinn. Pelvic US 01/30/24: 1. [...] mild atypia, suspicious for ARISTIDES 1 03/23/24: [facility] [place] [place] [facility] - Dr. Quinn. Recommended co-testing in 12 months. Plan to call if she experiences any more vaginal bleeding (PCB) Had consult at [facility] for consideration of lap hysterectomy, encouraged to defer at this time Assessment & Plan (04/06/2024 5:28 PM EDT): Following with [facility] [place] [place] [facility] Joe Quinn. Pelvic US 01/30/24: 1. Tiny [...] this week to discuss next steps with CONSTRUCTION INSPECTOR. Given her PMB, PCB, and family history, she is interested in discussing surgical options such as hysterectomy. Other irritable bowel syndrome 04/06/2024 Assessment & Plan (04/06/2024 5:21 PM EDT): Following with LIBBY Ruiz. Last available consult note January 2024. Plan to increase daily fiber. Prescribed hyoscyamine sublingual to see if covered by insurance. FODMAP diet discussed. Routine health maintenance 12/26/2022 Overview (01/26/2025): -Pap: NILM HPV neg 09/2017, HPV neg 01/15/22. Following with [facility] [place] [place] [facility] -Mammogram: 01/13/25: BIRADS 1 -Colonoscopy: normal 2015, due 2025 -Optometry: [facility] Jul 2023 -Dental: established with [facility] Dental Essential hypertension 09/11/2022 Overview (12/26/2022): [...] week as able. -Eye: Jul 2023 at [facility] -Microalbumin 24 December 2022 Assessment & Plan (04/06/2024 5:33 PM EDT): Well controlled Anxiety 06/18/2018 Overview (05/02/2023): ?? Following with [facility] ?? Diagnoses include: MDD & LEONIE Lumbar radiculopathy 06/18/2018 Allergic rhinitis 06/16/2012 Gastroesophageal reflux disease 06/16/2012 Supraventricular tachycardia 06/16/2012 Overview (12/26/2022): -Continue Cardizem 360mg daily -Following with Cardiology Resolved Problems Problem Noted Date Diagnosed Date Resolved Date Flushing 09/23/2018 06/27/2024 Encounters Date Type Department Care Team Description 01/26/2025 9:15 AM EDT Office Visit [facility] [address] [place], [place] [phone] Tish Fontana FNP Routine health maintenance (Primary Dx); Dietary counseling; Exercise counseling; Encounter for routine history and physical examination of adult; Type 2 diabetes mellitus without complication, without long-term current use of insulin (CMS/HCC); Essential hypertension; Supraventricular tachycardia (CMS/HCC); Generalized pruritus; Constipation, unspecified constipation type; Seasonal allergies 01/26/2025 Patient Outreach [facility] [address] [place], [place] [phone] Tish Fontana FNP Care Coordination (CHW outreach for SDOH food needs-referral completed /) 01/26/2025 Travel 01/25/2025 Telephone [facility]ED[facility] [address] [place], [place] [phone] Tish Fontana FNP Chart Prep 01/24/2025 Outside Procedure [facility] [address] [place] [address] Javon, Sindy, OD Presbyopia (Primary Dx) 01/21/2025 1:30 PM EDT Office Visit [facility] OPT[facility] [address] [place], [place] [phone] Sindy Alejandro, OD Hyperopia of both eyes (Primary Dx) 01/13/2025 Orders Only [facility] [address] [place] [address] Tish Fontana FNP 01/07/2025 Telephone [facility] [address] [place] [phone] Tish Fontana FNP Results 12/30/2024 2:40 PM EDT Office Visit [facility] [address] [place] [phone] Emely Valerio DO Acute bilateral low back pain with right-sided sciatica (Primary Dx); Bilateral hip pain; COVID-19 virus infection 12/30/2024 Travel 12/17/2024 2:00 PM EDT Office Visit [facility] [address] [place], [place] [phone] Javier Alejandron, OD Diabetes type 2, 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) (Primary Dx); [place] of macula of both eyes; Combined forms of age-related cataract of both eyes; Presbyopia 12/17/2024 Travel 12/08/2024 Telephone [facility] [address] [place] [address] Tish Fontana FNP March recall 12/03/2024 Population Health Risk Score [facility] () [address] [phone] Provider, Population Health Generic 11/05/2024 2:20 PM EST Office Visit [facility] [address] [place] [phone] Soo Su FNP Cough, unspecified type (Primary Dx); Acute URI 11/02/2024 Refill [facility] [address] [place], [place] [phone] Tish Fontana FNP from Last 3 Months [...] Mass Index 35.9 01/26/2025 9:14 AM EDT Plan of Treatment Upcoming Encounters Date Type Department Care Team (Late st Contact Info) Description 04/27/2025 10:00 AM EDT Office Visit [facility] [address] [place] [address] Tish Fontana, CELY [address] [place] [address] Health Maintenance Due Date Last Done Comments CT Colonography 1966 FIT DNA/Cologuard 1966 FIT 1966 FOBT 1966 Sigmoidoscopy 1966 Diabetes: Foot Exam 1976 Alcohol/Substance Use Screening 1978 Diabetes: Urine Protein Screening 12/27/2023 12/26/2022, 12/07/2020, 09/24/2019 Lipid Panel 12/27/2023 12/26/2022, 12/07/2020 COVID-19 Vaccine ( season) 2025 10/16/2021, 01/30/2021, 01/02/2021 Postponed from 05/23/2024 (Patient Refused) Diabetes: Hemoglobin A1C 07/29/2025 025, 06/25/2024, 04/05/2024, Additional history exists Mammogram 01/13/2026 01/13/2025, 12/21, 12/31/2022, Additional history exists Depression Screening 01/26/2026 01/26/2025, 01/27/20 SDOH Screening 01/26/2026 01/26/2025 Tobacco Screening 01/26/2026 01/26/2025 Colonoscopy 09/10/2026 09/10/2016 Colorectal Cancer Screening 09/10/2026 [...] complication, without long-term current use of insulin ([facility]) POCT GLUCOSE Routine 01/26/2025 9:21 AM EDT Type 2 diabetes mellitus without complication, without long-term current use of insulin ([facility]) BI MAMMOGRAM SCREENING TOMOSYNTHESIS BILATERAL Routine 01/13/2025 1:30 PM EDT XR HIP 2 OR 3 VIEWS RIGHT [...] 11/05/2024 2:21 PM EST Cough, unspecified type HEPATITIS C AB W/REFL TO HCV RNA, [...] Recently Relevant to Health Maintenance Results * (ABNORMAL) POCT HGB A1C (01/26/2025 9:21 AM EDT) Hemoglobin A1C 6.5(A) 4.0 - 6.0 % QC Media Lot # [id number] Lot# Expiration Date ,027 Blood 01/26/2025 9:21 AM EDT Tish Fontana REGIONAL SALES CONSULTANT POINT OF CARE TEST ENTER/EDIT ORDERABLES Final Result * POCT Glucose (01/26/2025 9:21 AM EDT) Glucose Blood, POC 136 60 - 200 mg/dL Comment:Fasting QC Media Lot # [id number] Lot# Expiration Date ,025 Blood Capillary blood specimen / Unknown 01/26/2025 9:21 AM EDT us Tish Fontana REGIONAL SALES CONSULTANT POINT OF CARE TEST ENTER/EDIT ORDERABLES Edited Result - Final * BI Mammogram Screening Tomosynthesis Bilateral (01/13/2025 1:30 PM EDT) Anatomical Region Laterality Modality Breast Bilateral Mammography 01/13/2025 1:30 PM EDT Narrative 01/21/2025 4:48 PM EDT ? [facility] ? [address] ?[place], [place] [address] ?[phone] ? Mammography Report ? Signed ? Patient: Blane,Ulcie E ?MR#: [id number] ? : 1965 ?Acct:[id number] ? Age/Sex: 59 / F ?ADM Date: 01/13/25 ? Loc: HO.MAMMO ? Attending Dr: Tish Fontana REGIONAL SALES CONSULTANT ? Ordering Physician: Tish Fontana REGIONAL SALES CONSULTANT ?Results: 1Negat ?? dano ? Date of Service: 01/13/ ?Follow Up: 1 Year From Orig ?? inal Mammogram ? Procedure(s): MM tomosynthesis screening BI ?? Accession Number(s): [id number] ? cc: Tish Fontana REGIONAL SALES CONSULTANT ? EXAMINATION: ?? MM SCREENING DIGITAL BREAST TOMOSYNTHESIS, BILATERAL ? CLINICAL INFORMATION: ? Screening. Asymptomatic. ? COMPARISON: ?? Mammography: Comparison is made with available priors ? TECHNIQUE: ?? Digital breast mammography with tomosynthesis is performed in both the ?? craniocaudal and mediolateral oblique views along with computer-aided ?? detection (CAD). ? FINDINGS: ?? There are scattered areas [...] due date for their next mammogram. ? Electronically signed by: ??Olena Kay DO ??01/21/2025 04:44 PM EDT ? Dictated By: ?Olena Kay DO ? Signed By: ?<Electronically signed by Olena [place], DO in OV> ? 01/21/25 1644 ? DD/ 1330 ? TD/TT: 01/13/25 1344 ? Line Analyst: ? Procedure Note Alverto, Image - 01/21/2025 [place] [address] [place] [address] Mammography Report Signed Patient: Lucie Arguelles EMR#: [id number] : 1965Acct:[id number] Age/Sex: 59 / FADM Date: 01/13/25 Loc: HO.MAMMO Attending Dr: Tish Fontana REGIONAL SALES CONSULTANT Ordering Physician: Tish Fontana FNPResults: 1Negat dano Date of Service: 01/13/25Follow Up: 1 Year From Orig inal Mammogram Procedure(s): MM tomosynthesis screening BI Accession Number(s): [id number] cc: Tish Fontana REGIONAL SALES CONSULTANT EXAMINATION: MM SCREENING DIGITAL BREAST TOMOSYNTHESIS, BILATERAL CLINICAL INFORMATION: Screening. Asymptomatic. COMPARISON: Mammography: Comparison is made with available priors TECHNIQUE: Digital breast mammography with tomosynthesis is performed in both the craniocaudal and mediolateral oblique views along with computer-aided detection (CAD). FINDINGS: There are scattered areas of fibroglandular [...] target due date for their next mammogram. Electronically signed by: Olena Kay DO 01/21/2025 04:44 PM EDT RP Dictated By: Olena Kay DO Signed By: <Electronically signed by Olena Kay DO in OV> 01/21/25 1644 DD/ 1330 TD/TT: 01/13/25 1344 Line Analyst: Tish Fontana REGIONAL SALES CONSULTANT IMG BI PROCEDURES Final Result * XR Hip 2 or 3 Views Right (12/30/2024 2:58 PM EDT) Anatomical Region Laterality Modality Lower Extremities, Hip Right Radiograp hic Imaging 12/30/2024 2:58 PM EDT Narrative 12/30/2024 3:32 PM EDT ?[facility] ?[address] ?[place] [address] ?XRay Report ? Signed ? Patient: Blane,Lucie E ?MR#: [id number] ? : 1965 ?Acct:[id number] ? Age/Sex: 59 / F ?ADM Date: 04/10/25 ? Loc: HO.HHCX ? Attending Dr: Emely Valerio DO ? Ordering Physician: Emely Valerio DO ?? Date of Service: 12/30/24 ?? Procedure(s): XR hip RT min 2V ?? Accession Number(s): [id number] ? cc: Emely Valerio DO ? EXAMINATION: [...] DD/ 1458 ? TD/TT: 12/30/24 1500 ? Line Analyst: ? Procedure Note Zeke Del Toro - 12/30/[address] [address] XRay Report Signed Patient: Lucie Arguelles EMR#: [id number] : 1965Acct:[id number] Age/Sex: 59 / FADM Date: 12/30/24 Loc: HO.HHCX Attending Dr: Emely Valerio DO Ordering Physician: Emely Valerio DO Date of Service: 12/30/24 Procedure(s): XR hip RT min 2V Accession Number(s): [id number] cc: Emely Valerio DO EXAMINATION: XR HIP, [...] 12/30/24 1529 DD/ 1458 TD/TT: 12/30/24 1500 Line Analyst: us Emely Rosadoileana DO IMG XR PROCEDURES Final Resu lt * XR Hip 2 or 3 Views Left (12/30/2024 2:58 PM EDT) Anatomical Region Laterality Modality Lower Extremities, Hip Left Radiograp hic Imaging 12/30/2024 2:58 PM EDT Narrative 12/30/2024 3:31 PM EDT ?[facility] ?[address] ?[place] [address] ?XRay Report ? Signed ? Patient: Blane,Lucie E ?MR#: [id number] ? : 1965 ?Acct:[id number] ? Age/Sex: 59 / F ?ADM Date: 12/30/24 ? Loc: HO.HHCX ? Attending Dr: Emely Valerio DO ? Ordering Physician: Emely Valerio DO ?? Date of Service: 12/30/24 ?? Procedure(s): XR hip LT min 2V ?? Accession Number(s): [id number] ? cc: Emely Valerio DO ? EXAMINATION: [...] signed by Les Ro MD in OV> ?04/07/16 1528 ? DD/ 1458 ? TD/TT: 12/30/24 1500 ? Line Analyst: ? Procedure Note Zeke Del Toro - 12/30/2024 [facility] [address] [place] [address] XRay Report Signed Patient: Lucie Arguelles EMR#: [id number] : 1965Acct:[id number] Age/Sex: 59 / FADM Date: 12/30/24 Loc: HO.HHCX Attending Dr: Emely Valerio DO Ordering Physician: Emely Valerio DO Date of Service: 12/30/24 Procedure(s): XR hip LT min 2V Accession Number(s): [id number] cc: Emely Valerio DO EXAMINATION: XR HIP, [...] 12/30/24 1528 DD/ 1458 TD/TT: 12/30/24 1500 Line Analyst: Emely Valerio DO IMG XR PROCEDURES Final Resu lt * XR Lumbar Spine 2-3 Views (12/30/2024 2:58 PM EDT) Anatomical Region Laterality Modality Spine, L-spine Radiographic Flor ging 12/30/2024 2:58 PM EDT Narrative 12/30/2024 3:37 PM EDT ?[facility] ?[address] ?[place] [address] ?XRay Report ? Signed ? Patient: Blane,Lucie E ?MR#: [id number] ? : 1965 ?Acct:[id number] ? Age/Sex: 59 / F ?ADM Date: 04/10/25 ? Loc: HO.HHCX ? Attending Dr: Emely Valerio DO ? Ordering Physician: Emely Valerio DO ?? Date of Service: 12/30/24 ?? Procedure(s): XR lumbar spine 2-3V ?? Accession Number(s): [id number] ? cc: Emely Valerio DO ? EXAMINATION: ?? XR LUMBOSACRAL SPINE ? CLINICAL INFORMATION: ?? acute worsening LBP x one mos with b/l hip pain ? COMPARISON: ?? 06/22/2014. ?? MRI lumbar 01/02/2018. ? TECHNIQUE: ?? Three views of the lumbosacral spine. ? FINDINGS: ?? Moderate levoconvex scoliosis, worsened since 2013. [place] at L2. There ?? is a rotatory [...] DD/ 1458 ? TD/TT: 12/30/24 1500 ? Line Analyst: ? Procedure Note Alverto, Zeke - 12/30/2024 [facility] [address] [place] [address] XRay Report Signed Patient: Lucie Arguelles EMR#: [id number] : 1965Acct:[id number] Age/Sex: 59 / FADM Date: 12/30/24 Loc: HO.HHCX Attending Dr: Emely Valerio DO Ordering Physician: Emely Valerio DO Date of Service: 12/30/24 Procedure(s): XR lumbar spine 2-3V Accession Number(s): [id number] cc: Emely Valerio DO EXAMINATION: XR LUMBOSACRAL SPINE CLINICAL INFORMATION: acute worsening LBP x one mos with b/l hip pain COMPARISON: 06/22/2014. MRI lumbar 01/02/2018. TECHNIQUE: Three views of the lumbosacral spine. FINDINGS: Moderate levoconvex scoliosis, worsened since 2013. [place] at L2. There is a rotatory component. [...] 12/30/24 1534 DD/ 1458 TD/TT: 12/30/24 1500 Line Analyst: Emely Valerio DO IMG XR PROCEDURES Final Resu lt * OCT, Retina - OU - Both Eyes (12/17/2024 3:21 PM EDT) Narrative Javon, Sindy, OD - 12/27/2024 11:23 AM EDT Images [...] Negative Negative Swab 11/05/2024 2:21 PM EST [facility] POINT OF CARE TEST ENTER/EDIT O RDERABLES Final Result * Influenza B (ID NOW Rapid Molecular) (11/05/2024 2:21 PM EST) Influenza B Negative Negative, Indeterminate [facility] Swab 11/05/2024 2:21 PM EST [facility] POINT OF CARE TEST ENTER/EDIT O RDERABLES Final Result [facility] [address] [place] [phone] * Influenza A (ID NOW Rapid Molecular) (11/05/2024 2:21 PM EST) Pathologist [facility] Influenza A Negative Negative, Indeterminate [facility] Swab 11/05/2024 2:21 PM EST Soo Su [facility] POINT OF CARE TEST ENTER/EDIT O RDERABLES Final Result [facility] [address] [place] [phone] * POCT Rapid COVID Ag (11/05/2024 2:21 PM EST) [facility] Rapid COVID Ag Negative Swab 11/05/2024 2:21 PM EST Result [facility] POINT OF CARE TEST ENTER/EDIT O RDERABLES Final Result * HIV-1 RNA, Quantitative, PCR with Reflex to Genotype (12/26/2022 12:02 PM EDT) [facility] HIV 1 RNA, QN PCR Not Detected Copies/mL [facility] HIV 1 RNA, QN PCR Not Detected Log cps/mL [facility] Comment: Reference Range: ?Not Detected ? copies/mL ?Not Detected Log copies/mL The test was performed using Real-Time Polymerase Chain Reaction. ? Reportable Range: 20 copies/mL to 10,000,000 copies/mL (1.30 Log copies/mL to 7.00 Log copies/mL). 12/26/2022 12:0 2 PM EDT 12/26/2022 12:03 PM EDT Result [facility] Tish Fontana [facility] BLOOD ORDERABLES Final Res ult Performing Organization Address [facility] Co de Phone Number [facility] [address], [place] [address] [facility] [address] [facility] [place] [phone] * Albumin, Random Urine W/Creatinine (12/26/2022 12:02 PM EDT) Creatinine, Random Urine 264 20 - 275 mg/dL [facility] [place] [facility] Albumin, Urine 1.1 See Note: mg/dL [facility] Comment: Reference Range: Reference Range Not established Albumin/Creatinin e Ratio, Random Urine 4 <30 mcg/mg creat [facility] [place] [facility] Comment: The ADA defines abnormalities in albumin [...] EDT 12/26/2022 12:03 PM EDT Tish Fontana [facility] URINE ORDERABLES Final Res ult Performing Organization Address [facility] de Phone Number [facility] [address], [facility] [place] [address] [facility] [place] [facility] [address] [place] [address] * Hepatitis C Antibody with Reflex to HCV, RNA, Quantitative, Real-Time PCR (12/26/2022 12:02 PM EDT) Hepatitis C Antibody NON-REACT DANO NON-REACT DANO [facility] [place] [facility] Index 0.05 <1.00 [facility] [place] [facility] Comment: HCV antibody was non-reactive. There is no laboratory evidence of HCV infection. In most cases, no further action is required. However, if recent HCV exposure is suspected, a test for HCV RNA (test code 38734) is suggested. For additional information please refer to http://education.NeedFeed/faq/TTW05c3 (This link is being provided for informational/ educational purposes only.) Blood Venous blood specimen / Unknown 12/26/2022 12:02 PM EDT 12/26/2022 12:03 PM EDT Tish Fontana [facility] BLOOD ORDERABLES Final Res ult [employer] [address] [place] [address], [place] [address] [facility] [place] [facility] [address] [place] [address] * Lipid Panel, Standard (12/26/2022 12:02 PM EDT) Cholesterol, Total 157 <200 mg/dL [facility] [place] [facility] HDL Cholesterol 62 > OR = 50 mg/dL [employer] Triglycerides 56 <150 mg/dL [facility] [place] [facility] LDL Cholesterol 81 mg/dL (calc) [employer] Comment: Reference range: <100 Desirable range <100 mg/dL for primary prevention; ?? <70 mg/dL for patients with CHD or diabetic patients with > or = 2 CHD risk factors. LDL-C is now calculated using the Cezar-Trevor calculation, which is a validated novel method providing better accuracy than the Friedewald equation in the estimation of LDL-C. Cezar GARCIA et al. SALMA. 2013;310(19): 7199-9461 (http://education.ApprenNet.Bueda/faq/JPJ874) Chol/HDLC Ratio 2.5 <5.0 (calc) [email or web address] Non-HDL Cholesterol 95 <130 mg/dL (calc) [employer] Comment: For patients with diabetes plus 1 major ASCVD risk factor, treating to a non-HDL-C goal of <100 mg/dL (LDL-C of <70 mg/dL) is considered a therapeutic option. Blood Venous blood specimen / Unknown 12/26/2022 12:02 PM EDT 12/26/2022 12:03 PM EDT us Tish Fontana REGIONAL SALES CONSULTANT LAB BLOOD ORDERABLES Final Res ult [employer] [address] [place] [address], [place] [address] [facility] [address] [place] [address] * HPV E6/E7 RFLX TANNER 16 18/45 (01/15/2022 2:53 PM EDT) HPV 16 RNA [facility] HPV 18/45 RNA [facility]NP [facility] HPV E6 E7 ADD [facility] HPV mRNA E6/E7 rflx Not Detected Not Detected [facility] Comment: Methodology: Lot Associate-Mediated Amplification This assay detects E6/E7 viral messenger RNA (mRNA) from 14 high-risk HPV types (16,18,31,33,35,39,45,51,52,56,58,59,66,68). The analytical performance characteristics of this assay have been determined by [employer]. The modifications have not been cleared or approved by the FDA. This assay has been validated pursuant to the CLIA regulations and is used for clinical purposes. For additional information, please refer to http://education.[employer].Bueda/faq/STB940z8 (This link if provided for information/ educational purposes only.) THIS TEST WAS PERFORMED AT: [facility] [address] [place] [address],[address] [place], [place] ??[address] TINY HYLTON MD 01/15/2022 2:53 PM EDT us Jean Quinn MD HISTORICAL/NON ORDERABLE LABS Fi nal Result [facility] [address] * Hm Colonoscopy (09/10/2016) Colonoscopy Normal Normal 09/10/2016 Narrative Ruth Rob - 09/10/2016 11:20 AM EST Recommended 10 year follow up us Historical Provider HEALTH MAINTENANCE Edited Result - Final from Last 3 Months or Most Recently Relevant to Health Maintenance Insurance [facility] Care Teams Differential Repairer Relationship Specialty Start Date End Date Tish Fontana FNP [address] [place] [address] PCP - General Family Medicine 05/18/22
--- OUTSIDE RECORDS SUMMARY | 2025-01-26 11:55 | XMS_ITS | Encounter Summary ---
Author Organization [employer] Address [address] [facility] 7t [place] [address] Care Team Providers Care Solid Glass Rod Dowel Machine Operator Name Role Phone Tish Fontana MAIL FORWARDING SYSTEM MARKUP CLERK Primary Care Provider [phone] Reason for Visit * Reason Onset Date Comments Chart Prep 01/25/2025 Encounter Details Date Type Department Care Team ([facility] Contact Info) Description 01/25/2025 Telephone [facility] CHC MED & PEDS [address] [place], [place] [phone] Tish Fontana FNP [address] [place], [place] [phone] Chart Prep Social History Tobacco Use Types Packs/Day Years [...] encounter Miscellaneous Notes * Telephone Encounter - Alycia Hammer [place] - 01/25/2025 7:59 PM EDT Chart Prep Labs: done Images: done Referrals: appointment pending Vaccines due: no updates Screenings: foot exam, LMP, and Urine Protein Overdue care gaps: SBIRT, SDOH, PHQ-9, and Disability screen documented in this encounter Plan of Treatment Upcoming Encounters Date Type Department Care Team (Late st Contact Info) Description 04/27/2025 10:00 AM EDT Office Visit [facility] MEDICINE [address] [place] [address] Tish Fontana FNP [address] [place] [address] documented as of this encounter Visit Diagnoses Not on filedocumented in this encounter Additional Health Concerns Assessment Noted Time PHQ-9 Depression Total Score: 8 01/14/20 24 10:46 AM EDT documented as of this encounter Care Teams Solid Glass Rod Dowel Machine Operator Relationship Specialty Start Date End Date Tish Fontana FNP [address] [place] [address] PCP - General Family Medicine 05/18/22 documented as of this encounter
--- OUTSIDE RECORDS SUMMARY | 2025-01-26 11:55 | XMS_ITS | Encounter Summary ---
Author Organization [employer] Address [address] [facility] [address] 7t [place] [address] Care Team Providers Care Metal Sander Name Role Phone Tish Fontana Primary Care Provider [phone] Reason for Visit * Reason Comments Med Refill Encounter Details Date Type Department Care Team ([facility] st Contact Info) Description 01/10/2024 Refill [facility] MEDICINE [address] [place] [address] Tish Fontana FNP [address] [place] [address] Supraventricular tachycardia (CMS/HCC) Social History Tobacco Use [...] Description 04/27/2025 10:00 AM EDT Office Visit [facility] MEDICINE [address] [place] [address] Tish Fontana FNP [address] [place] [address] documented as of this encounter Visit Diagnoses Diagnosis Supraventricular tachycardia (CMS/HCC) Other specified cardiac dysrhythmias documented in this encounter Additional Health Concerns Assessment Noted Time PHQ-9 Depression Total Score: 0 12/27/19 23 11:09 AM EDT documented as of this encounter Care Teams Metal Sander Relationship Specialty Start Date End Date Tish Fontana FNP [address] [place] [address] PCP - General Family Medicine 05/18/22 documented as of this encounter
--- OUTSIDE RECORDS SUMMARY | 2025-01-26 11:55 | XMS_ITS | Encounter Summary ---
Author Organization [employer] Address [address] [facility] 7t [place] [address] Care Team Providers Care Urogynaecologist Name Role Phone Tish Fontana Primary Care Provider [phone] Reason for Visit * Reason Comments Med Refill Encounter Details Date Type Department Care Team ([facility] st Contact Info) Description 01/19/2023 Refill [facility] MEDICINE [address] [place] [address] Tish Fontana FNP [address] [place] [address] Anxiety with flying Social History Tobacco Use [...] Upcoming Encounters Date Type Department Care Team ([facility] st Contact Info) Description 04/27/2025 10:00 AM EDT Office Visit [facility] MEDICINE [address] [place] [address] Tish Fontana FNP [address] [place] [address] documented as of this encounter Visit Diagnoses Diagnosis Anxiety with flying documented in this encounter Additional Health Concerns Assessment Noted Time PHQ-9 Depression Total Score: 0 12/27/19 23 11:09 AM EDT documented as of this encounter Care Teams Urogynaecologist Relationship Specialty Start Date End Date Tish Fontana FNP [address] [place] [address] PCP - General Family Medicine 05/18/22 documented as of this encounter
--- OUTSIDE RECORDS SUMMARY | 2025-01-26 11:55 | XMS_ITS | Encounter Summary ---
Author Organization [employer] Address [address] [facility] 7t [place] [address] Care Team Providers Care Radiology Assistant Name Role Phone Tish Fontana Primary Care Provider [phone] Encounter Details Date Type Department Care Team (Latest Contact Info) Description 03/05/2021 Abstract [facility] CONVERSIONS Dental, Provider, DDS Social History [...] Description 04/27/2025 10:00 AM EDT Office Visit [facility] MEDICINE [address] [place] [address] Tish Fontana FNP [address] [place] [address] documented as of this encounter Visit Diagnoses Not on filedocumented in this encounter Care Teams Radiology Assistant Relationship Specialty Start Date End Date Tish Fontana FNP [address] [place] [address] PCP - General Family Medicine 05/18/22 documented as of this encounter
--- OUTSIDE RECORDS SUMMARY | 2025-01-26 11:55 | XMS_ITS | Encounter Summary ---
Author Organization [employer] Address [address] [facility] [address] [place] [address] Care Team Providers Care Seamer Name Role Phone Tish Fontana Primary Care Provider [phone] Reason for Visit * Reason Comments Med Refill Encounter Details Date Type Department Care Team ([facility] st Contact Info) Description 06/22/2024 Refill [facility] MEDICINE [address] [place] [address] Tish Fontana FNP [address] [place] [address] Social History Tobacco Use Types Packs/Day Years [...] Description 04/27/2025 10:00 AM EDT Office Visit [facility] MEDICINE [address] [place] [address] Tish Fontana FNP [address] [place] [address] documented as of this encounter Visit Diagnoses Not on filedocumented in this encounter Additional Health Concerns Assessment Noted Time PHQ-9 Depression Total Score: 8 01/14/20 24 10:46 AM EDT documented as of this encounter Care Teams Seamer Relationship Specialty Start Date End Date Tish Fontana FNP [address] [place] [address] PCP - General Family Medicine 05/18/22 documented as of this encounter
--- OUTSIDE RECORDS SUMMARY | 2025-01-26 11:55 | XMS_ITS | Encounter Summary ---
Author Organization [employer] Address [address] [facility] [address] 7t [place] [address] Care Team Providers Care Tip Cementer Name Role Phone Tish Fontana Primary Care Provider [phone] Reason for Visit * Reason Comments Care Coordination CHW outreach for SDO H food needs-referral completed Encounter Details Date Type Department Care Team (Latest Contact Info) Description 01/26/2025 Patient Outreach [facility] MEDICINE [address] [place] [address] Tish Fontana FNP [address] [place] [address] Care Coordination (CHW outreach for SDOH food needs-referral completed /) Social History Tobacco Use Types Packs/Day Years [...] AM EDT documented as of this encounter Progress Notes * Neri Schwartz - 01/26/2025 10:41 AM EDT CHW Neri Schwartz, placed outbound call to patient for assistance with SDOH as a referral was received by the provider. Patient's name and were confirmed. Patient screened positive for the following SDOH food insecurities. Patient states family in on SNAP program at this time. CHW referral patient to the local list of pantries in the area for help. Patient verbalizes understanding, and ableto agree with plan to follow up. Patient educated on extended clinic hours on Mondays through Wednesdays, and Walk-In Urgent Care Located in [facility] of [facility]. Patient provided with after-hours line for [facility], , which offer night time triage service and option to transfer to presentation specialist provider if needed. documented in this encounter Plan of Treatment Upcoming Encounters Date Type Department Care Team (Late st Contact Info) Description 04/27/2025 10:00 AM EDT Office Visit [facility] MEDICINE [address] [place] [address] Tish Fontana FNP [address] [place] [address] documented as of this encounter Visit Diagnoses Not on filedocumented in this encounter Additional Health Concerns Assessment Noted Time PHQ-9 Depression Total Score: 9 01/27/20 25 9:27 AM EDT documented as of this encounter Care Teams Tip Cementer Relationship Specialty Start Date End Date Tish Fontana FNP [address] [place] [address] PCP - General Family Medicine 05/18/22 documented as of this encounter
--- OUTSIDE RECORDS SUMMARY | 2025-01-26 11:55 | XMS_ITS | Encounter Summary ---
Author Organization [employer] Address [address] [facility] [address] 7t [place] [address] Care Team Providers Care Automatic Nailing Machine Operator Name Role Phone Tish Fontana SUPERINTENDENT MARINE OIL TERMINAL Primary Care Provider [phone] Encounter Details Date Type Department Care Team ([facility] st Contact Info) Description 01/21/2025 1:30 PM EDT Office Visit [facility] OPTOMETRY [address] [place] [address] Javon, Sindy, OD [address] [place] [address] Hyperopia of both eyes (Primary Dx) Social History Tobacco Use Types Packs/Day Years [...] as of this encounter Progress Notes * Sindy Alejandro OD - 01/21/2025 1:30 PM EDT MH glasses were dispensed, 1 of 2. documented in this encounter Plan of Treatment Upcoming Encounters Date Type Department Care Team (Late st Contact Info) Description 04/27/2025 10:00 AM EDT Office Visit [facility] MEDICINE [address] [place] [address] Tish Fontana FNP [address] [place] [address] documented as of this encounter Visit Diagnoses Diagnosis Hyperopia of both eyes- Primary documented in this encounter Additional Health Concerns Assessment Noted Time PHQ-9 Depression Total Score: 8 01/14/20 24 10:46 AM EDT documented as of this encounter Care Teams Automatic Nailing Machine Operator Relationship Specialty Start Date End Date Tish Fontana FNP [address] [place] [address] PCP - General Family Medicine 05/18/22 documented as of this encounter
--- OUTSIDE RECORDS SUMMARY | 2025-01-26 11:55 | XMS_ITS | Encounter Summary ---
Author Organization [employer] Address [address] [address] 7[address] [place] [address] Care Team Providers Care Senior Underwriter Name Role Phone Tish Fontana VENTURE CAPITALIST Primary Care Provider [phone] Encounter Details Date Type Department Care Team ([facility] st Contact Info) Description 01/13/2025 Orders Only [facility] CHC MED & PEDS [address] [place], [place] [phone] Tish Fontana FNP [address] [place], [place] [phone] Social History Tobacco Use Types Packs/Day Years [...] EDT Office Visit [facility] MEDICINE [address] [place] [address] Tish Fontana FNP [address] [place] [address] documented as of this encounter Procedures Procedure Name Priority Date/Time Associated Diagnosis Comments BI MAMMOGRAM SCREENING TOMOSYNTHESIS BILATERAL Routine 01/13/2025 1:30 PM EDT documented in this encounter Results * BI Mammogram Screening Tomosynthesis Bilateral (01/13/2025 1:30 PM EDT) Anatomical Region Laterality Modality Breast Bilateral Mammography 01/13/2025 1:30 PM EDT Narrative 01/21/2025 4:48 PM EDT ? [facility] [place] ? [address] ?[place] [address] ?[phone] ? Mammography Report ? Signed ? Patient: Ramses,Lucie E ?MR#: [id number] ? : 1965 ?Acct:[id number] ? Age/Sex: 59 / F ?ADM Date: 04/24/25 ? Loc: HO.MAMMO ? Attending Karla Fontana VENTURE CAPITALIST ? Ordering Physician: Tish Fontana VENTURE CAPITALIST ?Results: 1Negat ?? kathi ? Date of Service: 01/13/25 ?Follow Up: 1 Year From Orig ?? inal Mammogram ? Procedure(s): MM tomosynthesis screening BI ?? Accession Number(s): [id number] ? cc: Tish Fontana VENTURE CAPITALIST ? EXAMINATION: ?? MM SCREENING DIGITAL BREAST [...] ??Olena Kay DO ??01/21/2025 04:44 PM EDT ?? RP ? Dictated By: ?Olena Kay DO ? Signed By: ?<Electronically signed by Olena Kay, DO in OV> ? 01/21/25 1644 ? DD/ 1330 ? TD/TT: 01/13/25 1344 ? Snow Fence Erector: ? Procedure Note Donotmiguel angelter, Image - 01/21/2025 [facility] [address] [place] [address] Mammography Report Signed Patient: Lucie Arguelles EMR#: [id number] : 1965Acct:[id number] Age/Sex: 59 / FADM Date: 01/13/25 Loc: HO.MAMMO Attending Dr: Tish Fontana VENTURE CAPITALIST Ordering Physician: Tish Fontana FNPResults: 1Negat kathi Date of Service: 01/13/25Follow Up: 1 Year From Orig inal Mammogram Procedure(s): MM tomosynthesis screening BI Accession Number(s): [id number] cc: Tish Fontana VENTURE CAPITALIST EXAMINATION: MM SCREENING DIGITAL BREAST TOMOSYNTHESIS, BILATERAL [...] Olena Kay DO 01/21/2025 04:44 PM EDT Dictated By: Olena Kay DO Signed By: <Electronically signed by Olena Kay DO in OV> 01/21/25 1644 DD/ 1330 TD/TT: 01/13/25 1344 Snow Fence Erector: us Tish TA IMG BI PROCEDURES Final Result documented in this encounter Visit Diagnoses Not on filedocumented in this encounter Additional Health Concerns Assessment Noted Time PHQ-9 Depression Total Score: 8 01/14/20 24 10:46 AM EDT documented as of this encounter Care Teams Senior Underwriter Relationship Specialty Start Date End Date Tish Fontana FNP [address] [place] [address] PCP - General Family Medicine 05/18/22 documented as of this encounter
--- OUTSIDE RECORDS SUMMARY | 2025-01-26 11:55 | XMS_ITS | Encounter Summary ---
Author Organization [employer] Address [address] [facility] [address] [place] [address] Care Team Providers Care Byproducts Pump Operator Name Role Phone Tish Fontana REGISTERED NURSE TEACHER Primary Care Provider [phone] Encounter Details Date Type Department Care Team (Latest Contact Info) Description 01/26/2025 Travel Social History Tobacco Use Types Packs/Day [...] Visit [facility] MEDICINE [address] [place] [address] Tihs Fontana FNP [address] [place] [address] documented as of this encounter Visit Diagnoses Not on filedocumented in this encounter Additional Health Concerns Assessment Noted Time PHQ-9 Depression Total Score: 9 01/27/20 25 9:27 AM EDT documented as of this encounter Care Teams Byproducts Pump Operator Relationship Specialty Start Date End Date Tish Fontana FNP [address] [place] [address] PCP - General Family Medicine 05/18/22 documented as of this encounter
--- OUTSIDE RECORDS SUMMARY | 2025-01-26 11:55 | XMS_ITS | Encounter Summary ---
Author Organization [email or web address] Address [address] [facility] [address] [place] [address] Care Team Providers Care Test Bore Helper Name Role Phone Tish Fontana BODY MAKER Primary Care Provider [phone] Encounter Details Date Type Department Care Team (Latest Contact Info) Description 01/24/2025 Outside Procedure C OPTOMETRY [address] [place] [address] Javon, Sindy, OD [address] [place] [address] Presbyopia (Primary Dx) Social History Tobacco Use Types [...] Progress Notes * Sindy Alejandro OD - 01/24/2025 1:46 PM EDT MH glasses were dispensed, 2 of 2. documented in this encounter Plan of Treatment Upcoming Encounters Date Type Department Care Team (Late st Contact Info) Description 04/27/2025 10:00 AM EDT Office Visit [facility] MEDICINE [address] [place] [address] Tish Fontana FNP [address] [place] [address] documented as of this encounter Visit Diagnoses Diagnosis Presbyopia- Primary documented in this encounter Additional Health Concerns Assessment Noted Time PHQ-9 Depression Total Score: 8 01/14/20 24 10:46 AM EDT documented as of this encounter Care Teams Test Bore Helper Relationship Specialty Start Date End Date Tish Fontana FNP [address] [place] [address] PCP - General Family Medicine 05/18/22 documented as of this encounter
--- OUTSIDE RECORDS SUMMARY | 2025-01-26 11:55 | XMS_ITS | Encounter Summary ---
Author Organization [employer] Address [address] [facility] [address] [place] [address] Care Team Providers Care Human Resources Trainer Name Role Phone Tish Fontana SALES PROMOTION COORDINATOR Primary Care Provider [phone] Reason for Visit * Reason Onset Date Comments Nurse Triage 07/14/2023 Encounter Details Date Type Department Care Team ([facility] Contact Info) Description 07/14/2023 Telephone C CHC MED & PEDS [address] [place], [place] [phone] Tish Fontana FNP [address] [place], [place] [phone] Nurse Triage Social History Tobacco Use Types [...] Description 04/27/2025 10:00 AM EDT Office Visit [facility] MEDICINE [address] [place] [address] Tish Fontana FNP [address] [place] [address] documented as of this encounter Visit Diagnoses Not on filedocumented in this encounter Additional Health Concerns Assessment Noted Time PHQ-9 Depression Total Score: 0 12/27/19 23 11:09 AM EDT documented as of this encounter Care Teams Human Resources Trainer Relationship Specialty Start Date End Date Tish Fontana FNP [address] [place] [address] PCP - General Family Medicine 05/18/22 documented as of this encounter
--- OUTSIDE RECORDS SUMMARY | 2025-01-26 11:56 | XMS_ITS | Encounter Summary ---
Author Organization [employer] Address [address] [place] [address] 7t [place] [address] Care Team Providers Care Stitcher Hand Name Role Phone Tish Fontana Primary Care Provider [phone] Encounter Details Date Type Department Care Team (Late Contact Info) Description 01/29/2023 Abstract [facility] MEDICINE [address] [place], [place] [phone] Tish Fontana FNP [address] [place], [place] [phone] Social History Tobacco Use Types Packs/Day Years [...] Description 04/27/2025 10:00 AM EDT Office Visit [facility] MEDICINE [address] [place], [place] [phone] Tish Fontana FNP [address] [place], [place] [phone] documented as of this encounter Procedures Procedure Name Priority Date/Time Associated Diagnosis Comments HM COLONOSCOPY Routine 09/10/2016 documented in this encounter Results * Hm Colonoscopy (09/10/2016) Colonoscopy Normal Normal [...] documented as of this encounter Care Teams Stitcher Hand Relationship Specialty Start Date End Date Tish Fontana FNP [address] [place] [address] PCP - General Family Medicine 05/18/22 documented as of this encounter
[2025-01-26 13:42] LABS: MANUAL DIFF FLAG NO
[2025-01-26 13:57] LABS: Basophils Percent Auto 0.2 % (0-2); Eosinophils Absolute Auto 0.2 X10*3/uL (0.0-0.4); Hematocrit 39.3 % (37.0-47.0); Imm Gran Abs Auto 0.01 X10*3/uL (0.00-0.03); Imm Gran Pct Auto 0.2 % (0.0-0.4); Lymphocytes Absolute Auto 1.9 X10*3/uL (1.2-4.9); Lymphocytes Percent Auto 30.9 % (20-40); Mean Corpuscular HGB Conc 33.1 g/dl (31.0-35.0); Mean Corpuscular Hemoglobin 29.6 pg (27.0-33.0); Mean Corpuscular Volume 89.5 fL (80.0-98.0); Mean Platelet Volume 11.2 fL (9.4-12.3); Monocytes Absolute Auto 0.6 X10*3/uL (0.1-1.2); Monocytes Percent Auto 10.3 % (2-11); Neutrophils Absolute Auto 3.3 x10*3/uL (2.0-8.3); Neutrophils Percent Auto 55.4 % (45-73); Platelet Count 213 X10*3/uL (160-400); Red Blood Count 4.39 X10*6/uL (4.20-5.50); Red Cell Distribution Width 13.4 % (11.0-16.0)
[2025-01-26 14:16] LABS: Creatinine Urine 205.99 mg/dL; Microalbum/Creatinine Ratio Ur 8.2 ug/mg cr (<30)
[2025-01-26 14:19] LABS: Estimated Average Glucose 137 mg/dL; Hemoglobin A1C 159.4217 umol/L; Hemoglobin A1c % 6.4 % (<6.0); Total Hemoglobin (HGBA1C) 3405.0856 umol/L
[2025-01-26 14:23] LABS: Alanine Aminotransferase 14 U/L (0-31); Alkaline Phosphatase 86 U/L (39-117); Anion Gap 12 (12-20); Aspartate Amino Transferase 21 U/L (5-31); Bilirubin Total 0.3 mg/dL (0.0-1.0); Blood Urea Nitrogen 11 mg/dL (9-16); Calcium 9.4 mg/dL (8.4-10.2); Carbon Dioxide 27 mmol/L (22-29); Chloride 107 mmol/L (96-108); Cholesterol 140 mg/dL (<200); Estimated Glomerular Filt Rate > 60; Glucose Random 114 mg/dL (60-115); HDL Cholesterol 47 mg/dL (>40); Iron 53 mcg/dL (30-160); LDL Cholesterol Calculated 79 mg/dL (<100); Percent Iron Saturation 22 % (15-50); Potassium 3.7 mmol/L (3.3-5.1); Sodium 142 mmol/L (135-145); Total Iron Binding Capacity 246 mcg/dL (228-428); Total Protein 7.1 g/dL (6.5-8.0); Triglycerides 73 mg/dL (<150); Unsaturated Iron Binding 193 ug/dL
[2025-01-26 14:28] LABS: Ferritin 98 ng/mL (10-250); TSH reflex Free T4 0.93 uIU/mL (0.32-4.0); Vitamin D 25-OH Total 44.4 ng/mL (>30)
[2025-01-26 14:35] LABS: Folate 8.2 ng/mL (> or = 4.0); Vitamin B12 493 pg/mL (200-900)
[2025-01-26 14:56] LABS: CT PCR NOT DETECTED (Not Detect.); NG PCR NOT DETECTED (Not Detect.)
[2025-01-27 04:23] LABS: HIV AB/AG Nonreactive (Nonreactive); HIV Num 1 0.06 S/CO (0.00-0.99)
[2025-01-27 11:58] LABS: RPR Rapid Plasma Reagin NON-REACTIVE (NON-REACTIVE)
[2025-01-28 13:23] LABS: HCV Log PCR <1.18 NOT DETECTED Log IU/mL (NOT DETECTED); HepC Viral Load <15 NOT DETECTED IU/mL (NOT DETECTED)
== END 2025-01-26 10:40 | disposition home or self-care (01) ==
LOC: HO.HHCL 10:39
PROVIDERS: Visit Provider Registered Nurse
DX: Z00.00 Encounter for general adult medical examination without abnormal findings (principal)
CPT/HCPCS: 80053; 80061; 82043; 82306; 82570; 82607; 82728; 82746; 83036; 83540; 83735; 84443; 85025; 86592; 87389; 87491; 87522; 87591

== ENCOUNTER 2025-03-28 13:34 | Outpatient (AMB) | payer MEDICAID, SELFPAY ==
--- NOTE | 2025-03-28 13:37 | A.OFFVIS_ITS ---
Vital Signs 03/28/25 13:43 Height 5 ft 3 in Weight 191 lb BMI 33.8 BP 128/72 Intake Visit Reasons: annual/co test Intake Note: Patient complains of x1 week on and off right ovary pain. No pain today. Vacuum Drier Operator: Vacuum Drier Operator Present (Rose) Accompanied by: Self / Same As Patient Allergies citalopram Allergy (Verified 03/28/25 13:37) facial tic methocarbamol Adverse Reaction (Intermediate, Verified 03/28/25 13:37) insomnia Is last menstrual period known: No Post menopausal: Yes Patient : No HPI Comments Details: Presenting for annual exam. No complaints. Last Pap/HPV was negative in 01/11, however the patient had postmenopausal bleeding and ECC was done which showed ?ARISTIDES 1 Last Mammogram was BI-RADS 1 in 01/14 Last Colonoscopy was 8 years ago, according to patient the patient will be due for another screening colonoscopy in 2 years, no records available [facility] Medical History DVT (deep venous thrombosis) COVID-19 vaccine series completed GERD (gastroesophageal reflux disease) Elevated cholesterol HTN (hypertension) Diabetes mellitus Tachycardia Surgical History Hx of breast biopsy S/P laparoscopic cholecystectomy (07/11/21) History of endometrial ablation H/O colonoscopy Hx of dilation and curettage Hx of hemorrhoidectomy History of right knee surgery H/O tubal ligation Family History Mother Uterine cancer Father Prostate cancer Family/Other History of breast cancer Family/Other Ovarian cancer Brother Prostate cancer Social History Household Members: Spouse Household Members Other:: son Housing: Apartment Are you a primary patient care technician to a significant other at home: No Do you presently have visiting nurse or other home services: No Alcohol intake: never Patient Tobacco Use Status: Never used Tobacco Current occupational status: unemployed Sexual orientation: Straight/Heterosexual Gender identity: Female Female Reproductive History Menstrual Age of Menarche: 14 Total pregnancies: 6 Full term: 4 Ab spontaneous: 2 Date of last pap smear: 01/15/22 (negative pap smear, negative hpv ) Date of Mammogram: 01/13/25 (bi rad 1) Review of Systems Const All systems reviewed & are unremarkable except as noted in HPI and below Card Reports as per HPI Resp Reports as per HPI GI Reports as per HPI and Reports no additional complaints Reports as per HPI Physical Exam Const General: cooperative, healthy appearing and comfortable Chest Chest palpation & inspection: normal inspection of the chest and normal palpation of entire chest wall Breast/axilla inspection: normal inspection of the breasts and normal inspection of the axillae Breast/axilla palpation: normal palpation of the breasts, normal palpation of the axillae and no axillary lymphadenopathy Resp Effort & Inspection: normal respiratory effort Auscultation: clear to auscultation bilaterally Percussion: percussion normal Cardio Palpation: normal PMI Rate: regular rate Rhythm: regular rhythm Heart sounds: no murmurs and no rubs Peripheral pulses: Peripheral pulses 2+ throughout GI Inspection: Yes normal to inspection Palpation (GI): Soft to palpation, nontender, no guarding, not rigid and No hepatosplenomegaly present Percussion: Yes normal to percussion Auscultation: normal bowel sounds Rectal Exam - Female: deferred General: Yes bladder normal to palpation External Female Exam: No lesion Speculum Exam - Vagina: normal appearance of the vagina, normal palpation, normal vaginal discharge and not erythematous Speculum Exam - Cervix: normal appearance of the cervix and normal palpation Bimanual exam- vagina & uterus: normal bimanual exam, normal palpation, uterine size normal, bladder normal to palpation, consistency normal and normal palpation Bimanual Exam- Adnexa, other: normal adnexae, no masses and no tenderness Assessment & Plan Assessment & Plan (1) Well woman exam: Comment: ARISTIDES 1 on ECC in 03/15 Code(s): Z01.419 - Encounter for gynecological examination (general) (routine) without abnormal findings Category: Medical Plan: Co testing done. Counseled the patient about the recommended dietary allowance of 1200 mg of Calcium & 600 IU of vitamin D. Instructions given the patient to schedule next screening Mammogram in 01/15. The patient was instructed to perform monthly self-breast exams and schedule annual exam in a year. All questions answered and the patient verbalized understanding. Coding Level of Care Code Est Pt Prev Care 40-64y(95855) Diagnoses Well woman exam Z01.419
[2025-03-28 13:43] VITALS: BP 128/72; BMI 33.8
--- OUTSIDE RECORDS SUMMARY | 2025-03-28 14:03 | XMS_ITS | Clinical Summary ---
Author Organization [employer] Address [address] [place] [address] [address] [place] [address] Care Team Providers Care Wheat Buyer Name Role Phone Tish Fontana MACHINE OPERATOR HELPER Primary Care Provider [phone] Allergies Active Allergy Reactions Criticality Noted Date Comments Citalopram 12/01/2019 Methocarbamol Insomnia High 03/12/2024 Medications Alcohol Swabs (B-D SINGLE USE SWABS REGULAR) pads USE BEFORE CHECKING BLOOD SUGAR 100 each 11 4 Active fluticasone (Flonase) 50 MCG/ACT nasal sprayIndications :Pharyngitis, unspecified etiology,Seasona l allergies APPLY ONE SPRAY IN EACH NOSTRIL TWICE A DAY NEEDED 48 g 3 4 Active FreeStyle lancetsIndicatio ns:Type 2 diabetes mellitus without complication, unspecified whether buttermaker helper insulin use ([facility]) 1 each by Other route Once per day. 100 each 11 4 Active glucose blood (FREESTYLE LITE) test stripIndications :Type 2 diabetes mellitus without complication, without long-term current use of insulin ([facility]) USE TO TEST BLOOD SUGAR ONCE EVERY DAY 100 strip 3 4 Active guaiFENesin (Mucinex) 600 MG 12 hr tablet Take 2 tablets (1,200 mg) by mouth 2 times daily. Do not crush, chew, or split. 120 tablet 11 5 026 Active Multiple Vitamins-Mineral s (PreserVision AREDS) capsule Take 1 capsule by mouth 2 times daily. Take with food. 60 capsule 11 5 Active lidocaine (Lidoderm) 5 % patch Apply 1-2 patches topically if needed each day for mild pain. Remove & discard patch within 12 hours or as directed by MD. 60 patch 3 5 Active naproxen (Naprosyn) 500 MG tabletIndication s:COVID-19 virus infection Take 1 tablet (500 mg) by mouth if needed in the morning and at bedtime for mild pain or moderate pain for up to 30 doses. 30 tablet 5 Active baclofen (Lioresal) 10 MG tablet Take 1 tablet (10 mg) by mouth if needed in the morning, at noon, and at bedtime for muscle spasms. 60 tablet 1 5 Active Diclofenac Sodium 1 % gel Apply 2 g topically if needed in the morning, at noon, in the evening, and at bedtime (pain). 150 g 3 5 Active cetirizine (ZyrTEC) 10 MG tabletIndication s:Seasonal allergies TAKE ONE TABLET BY MOUTH EVERY DAY NEEDED FOR ALLERGIES 90 tablet 3 5 Active dilTIAZem CD (Cardizem CD) 180 MG 24 hr capsuleIndicatio ns:Supraventricu lar tachycardia (CMS/HCC) TAKE TWO CAPSULES BY MOUTH EVERY DAY 180 capsule 1 5 Active docusate sodium (Colace) 100 MG capsuleIndicatio ns:Constipation, unspecified constipation type TAKE ONE CAPSULE BY MOUTH AT BEDTIME NEEDED FOR CONSTIPATION 90 capsule 3 5 Active Ketotifen Fumarate 0.035 % solutionIndicati ons:Seasonal allergies Administer 1 drop into affected eye(s) if needed in the morning and at bedtime (allergies). 5 mL 3 5 Active losartan (Cozaar) 50 MG tabletIndication s:Essential hypertension Take 1 tablet (50 mg) by mouth Once per day. 90 tablet 3 5 Active metFORMIN XR (Glucophage-XR) 500 MG 24 hr tabletIndication s:Type 2 diabetes mellitus without complication, without long-term current use of insulin (CMS/HCC) TAKE ONE TABLET BY MOUTH TWICE A DAY 180 tablet 3 5 Active pantoprazole (Protonix) 40 MG EC tablet Take 1 tablet (40 mg) by mouth before breakfast. Do not crush, chew, or split. 90 tablet 1 5 026 Active pravastatin (Pravachol) 10 MG tabletIndication s:Type 2 diabetes mellitus without complication, without long-term current use of insulin (CMS/HCC) Take 1 tablet (10 mg) by mouth at bedtime. 90 tablet 3 5 Active PARoxetine (Paxil) 10 MG tabletIndication s:Vasomotor symptoms due to menopause Take 1 tablet (10 mg) by mouth at bedtime. 90 tablet 1 5 026 Active cholecalciferol (D3 Super Strength) 50 MCG (1999 UT) capsule TAKE ONE CAPSULE BY MOUTH EVERY DAY 90 capsule 1 5 Active Active Problems Problem Noted Date Diagnosed Date Seasonal allergies 01/28/2025 Assessment & Plan (01/28/2025 8:25 PM EDT): - Cont cetirizine, flonase, and ketotifen eye drops PRN Vasomotor symptoms due to menopause 06/27/2024 Assessment & Plan (01/28/2025 8:20 PM EDT): Symptoms bothersome and frequent despite lifestyle interventions Plan: Due to history of DVT, recommend non-hormonal treatment. Plan to start paroxetine 10 mg daily. Reviewed med safety and side effects. Assessment & Plan (06/27/2024 4:10 PM EDT): [...] Plan (04/06/2024 5:24 PM EDT): Following with [facility] THREADING MACHINE OPERATOR - Dr. Quinn Identified on US 02/19/24 - tiny 1cm intramural myoma in left body of the uterus. Plan: expectant management with repeat pelvic US periodically Postcoital bleeding 04/06/2024 Assessment & Plan (06/27/2024 4:06 PM EDT): Following with [facility] THREADING MACHINE OPERATOR - Dr. Quinn. Pelvic US 01/30/24: 1. [...] mild atypia, suspicious for ARISTIDES 1 03/23/24: [facility] THREADING MACHINE OPERATOR - Dr. Quinn. Recommended co-testing in 12 months. Plan to call if she experiences any more vaginal bleeding (PCB) Had consult at [facility] for consideration of lap hysterectomy, encouraged to defer at this time Assessment & Plan (04/06/2024 5:28 PM EDT): Following with [facility] THREADING MACHINE OPERATOR - Dr. Quinn. Pelvic US 01/30/24: 1. [...] this week to discuss next steps with THREADING MACHINE OPERATOR. Given her PMB, PCB, and family history, she is interested in discussing surgical options such as hysterectomy. Other irritable bowel syndrome 04/06/2024 Assessment & Plan (01/28/2025 8:19 PM EDT): Following with [facility]. Last available consult note January 2024. Plan to increase daily fiber. Prescribed hyoscyamine sublingual to see if covered by insurance. FODMAP diet discussed. Assessment & Plan (04/06/2024 5:21 PM EDT): Following with [facility]. Last available consult note January 2024. Plan to increase daily fiber. Prescribed hyoscyamine sublingual to see if covered by insurance. FODMAP diet discussed. Routine health maintenance 12/26/2022 Overview (01/28/2025): -Pap: NILM HPV neg 09/2017, HPV neg 01/15/22. See N93.0. Next due for co-testing February 2025. Following with [facility] THREADING MACHINE OPERATOR -Mammogram: 01/13/25: BIRADS 1 -Colonoscopy: normal 2015, due 2025 -Optometry: [facility] Jul 2023 -Dental: established with [facility] Dental -Last physical exam: 01/26/2025 Essential hypertension 09/11/2022 Overview (01/28/2025): -Goal < 130/80mmHg -Continue losartan 50mg daily -Encouraged low salt diet and 150 mins of exercise weekly Assessment & Plan (01/28/2025 8:18 PM EDT): Elevated in office. Patient reports had not yet taken her blood pressure medication this morning. Encouraged to follow-up if home readings above goal. Curvature of spine 10/03/2021 Deep venous thrombosis 10/03/2021 Leg length inequality 10/03/2021 Fear of flying 03/05/2021 Piriformis syndrome of left side 05/24/2020 Type 2 diabetes mellitus without complication Overview (01/28/2025): Lab Results Component Value Date HGBA1C 6.4 (H) 01/26/2025 -Cont with metformin 500mg BID -Cont with lifestyle interventions such as dietary and exercise as tolerated. -Recommended 150mins of exercise per week as able. -Eye: Jul 2023 at [facility] -Microalbumin 24 December 2022 Assessment & Plan (04/06/2024 5:33 PM EDT): Well controlled Anxiety 06/18/2018 Overview (05/02/2023): Following with [facility] Diagnoses include: MDD & LEONIE Lumbar radiculopathy 06/18/2018 Gastroesophageal reflux disease 06/16/2012 Supraventricular tachycardia 06/16/2012 Overview (01/28/2025): -Continue Cardizem 360mg daily - Previously followed with cardiology Assessment & Plan (01/28/2025 8:19 PM EDT): Well-controlled, continue current therapy Resolved Problems Problem Noted Date Diagnosed Date Resolved Date Flushing 09/23/2018 06/27/2024 Allergic rhinitis 06/16/2012 01/28/2025 Encounters Date Type Department Care Team Description 03/07/2025 Telephone [facility] [address] [place] [address] Tish Fontana FNP Arialief Supplement 02/25/[address] [address] Tish Fontana FNP Nurse Triage 02/16/2025 Results Follow-Up [facility] [address] [place] [address] Tish Fontana FNP POCT Glucose, POCT HGB A1C, Albumin, Random Urine W/Creatinine, Additional followed-up results: 14 02/04/2025 Refill [facility] [address] [place] [address] Tish Fontana FNP 01/31/2025 Orders Only [address] [address] Emely Valerio DO Acute bilateral low back pain with right-sided sciatica (Primary Dx) 01/26/2025 9:15 AM EDT Office Visit [address] [address] Tish Fontana FNP Encounter for routine history and physical examination of adult (Primary Dx); Dietary counseling; Exercise counseling; Routine health maintenance; Type 2 diabetes mellitus without complication, without long-term current use of insulin (CMS/HCC); Essential hypertension; Supraventricular tachycardia (CMS/HCC); Constipation, unspecified constipation type; Seasonal allergies; Pain of left lower extremity; Other irritable bowel syndrome; Vasomotor symptoms due to menopause 01/26/2025 Patient Outreach [facility] MEDICINE [address] [place] [phone] Tish Fontana FNP Care Coordination (CHW outreach for SDOH food needs-referral completed /) 01/26/2025 Travel 01/25/2025 Telephone [facility] [address] [place] [address] Tish Fontana FNP Chart Prep 01/24/2025 Outside Procedure [facility] OPTOMETRY [address] [place] [address] Javier Alejandron, OD Presbyopia (Primary Dx) 01/21/2025 1:30 PM EDT Office Visit [facility] OPTOMETRY [address] [place] [address] Javier Alejandron, OD Hyperopia of both eyes (Primary Dx) 01/13/2025 Orders Only [facility] [address] [place] [address] Tish Fontana FNP 01/07/2025 Telephone [facility] MEDICINE [address] [place] [phone] Tish Fontana FNP Results 12/30/2024 2:40 PM EDT Office Visit [facility] WALK[facility] [address] [place] [phone] Emely Valerio DO Acute bilateral low back pain with right-sided sciatica (Primary Dx); Bilateral hip pain; COVID-19 virus infection 12/30/2024 Travel from Last 3 Months Immunizations Immunization Administration Dates Next Due Hep B, adult [...] 72 01/26/2025 9:14 AM EDT Temperature 36.1 C (96.9 F) 01/26/2025 9:14 AM EDT Respiratory Rate 22 01/26/2025 9:14 AM EDT [...] Description 04/27/2025 10:00 AM EDT Office Visit [facility] MEDICINE [address] [place] [address] Tish Fontana, MACHINE OPERATOR HELPER [address] [place] [address] Health Maintenance Due Date Last Done Comments CT Colonography 1966 FIT DNA/Cologuard 1966 FIT 1966 FOBT 1966 Sigmoidoscopy 1966 Diabetes: Foot Exam 1976 Alcohol/Substance Use Screening 1978 Influenza Vaccine (#1) 2025 , 07/21/2023, 06/21/2022, Additional history exists COVID-19 Vaccine ( season) 2025 10/16/2021, 01/30/2021, 01/02/2021 Postponed from 05/23/2024 (Patient Refused) Depression Monitoring 07/29/2025 01/26/2025, 025 Diabetes: Hemoglobin A1C 07/29/2025 025, 01/26/2025, 06/25/2024, Additional history exists Mammogram 01/13/2026 01/13/2025, 12/21, 12/31/2022, Additional history exists Diabetes: Urine Protein Screening 01/26/2026 01/26/2025, 12/26/2022, 12/07/2020, Additional history exists Disability Screening 01/26/2026 01/26/2025 Lipid Panel 01/26/2026 01/26/2025, 04/0 02/2023, 12/07/2020 SDOH Screening 01/26/2026 01/26/2025 Tobacco Screening 01/26/2026 [...] 10/13/2014, 07/19/2014 Zoster Vaccines Completed 06/13/2021, 04/10/2021 Pneumococcal Vaccine: 50+ Years Completed 07/21/2023, 12/07/2019, 07/15/2014 HIV Screening Completed 01/26/2025, 12/26/2022 Hepatitis C Screening Completed 01/26/2025, 023 HIB Vaccines Aged Out No longer eligi [...] patient's age to complete this topic Meningococcal B Vaccine Aged Out No l onger eligible based on patient's age to complete [...] Procedure Name Priority Date/Time Associated Diagnosis Comments VITAMIN D,25-OH,TOTAL,IA Routine 01/26/2025 10:44 AM EDT Encounter for routine history and physical examination of adult FERRITIN Routine 01/26/2025 10:44 AM EDT Encounter for routine history and physical examination of adult IRON AND TOTAL IRON BINDING CAPACITY Routine 01/26/2025 10:44 AM EDT Encounter for routine history and physical examination of adult VITAMIN B12/FOLATE, SERUM PANEL Routine 01/26/2025 10:44 AM EDT Encounter for routine history and physical examination of adult MAGNESIUM Routine 01/26/2025 10:44 AM EDT Encounter for routine history and physical examination of adult HIV 1/2 ANTIGEN/ANTIBODY, FOURTH GENERATION W/RFL Routine 01/26/2025 10:44 AM EDT Encounter for routine history and physical examination of adult RPR (MONITOR) W/REFL TITER Routine 01/26/2025 10:44 AM EDT Encounter for routine history and physical examination of adult HEPATITIS C VIRAL RNA, QUANTITATIVE, REAL-TIME PCR Routine 01/26/2025 10:44 AM EDT Encounter for routine history and physical examination of adult CBC WITH AUTO DIFFERENTIAL Routine 01/26/2025 10:44 AM EDT Encounter for routine history and physical examination of adult COMPREHENSIVE METABOLIC PANEL Routine 01/26/2025 10:44 AM EDT Encounter for routine history and physical examination of adult TSH W/REFLEX TO FT4 Routine 01/26/2025 1 0:44 AM EDT Encounter for routine history and physical examination of adult HEMOGLOBIN A1C Routine 01/26/2025 10:44 AM EDT Encounter for routine history and physical examination of adult LIPID PANEL, STANDARD Routine 01/26/2025 10:44 AM EDT Encounter for routine history and physical examination of adult ALBUMIN, RANDOM URINE W/CREATININE Routine 01/26/2025 10:44 AM EDT Encounter for routine history and physical examination of adult CHLAMYDIA/N. GONORRHOEAE RNA, TMA, UROGENITAL Routine 01/26/2025 10:44 AM EDT Encounter for routine history and physical examination of adult POCT GLYCATED HEMOGLOBIN, TOTAL Routine 01/26/2025 9:21 AM EDT Type 2 diabetes mellitus without complication, without long-term current use of insulin ([facility]) POCT GLUCOSE Routine 01/26/2025 9:21 AM EDT Type 2 diabetes mellitus without complication, without long-term current use of insulin ([facility]) BI MAMMOGRAM SCREENING TOMOSYNTHESIS BILATERAL Routine 01/13/2025 [...] pain with right-sided sciatica Bilateral hip pain ZZZ HISTORICAL HPV E6/E7 RFLX TANNER 16 18/45 Routine 01/15/2022 2:53 PM EDT COLONOSCOPY Routine 09/10/2016 from Last 3 Months or Most Recently Relevant to Health Maintenance Results * Vitamin D, 25-Hydroxy, Total, Immunoassay (01/26/2025 10:44 AM EDT) Vitamin D 25-OH Total 44.4 >30 ng/mL [facility] Comment: Health Based Reference Values*< 20 ng/mL Urhimopig07-08 ng/mL Insufficient> 30 ng/mL Sufficient*Deshaun CHATTERJEE. N Engl J Med. 2007;357:266-280There is no well-established upper level of normal vitamin Dlevels. Some laboratories use 50 ng/mL as an upper limit ofnormal. However, toxicity is patient-dependent and may occurat any level. Careful correlation with the patient'spresentation is necessary and, if there is concern forvitamin D toxicity, treatment should be consideredirrespective of the serum level.Care must be taken in interpreting Vitamin D results fromdifferent laboratories and methodologies. Published datademonstrated that results from patients undergoinghemodialysis may show a negative bias when tested withvarious automated 25-OH vitamin D assays when compared toLC-MS/MS.When testing samples from patients whose predominant form ofVitamin D is Vitamin D2, such as patients receiving VitaminD2 supplementation, results that are subtherapeutic shouldbe confirmed with another method such as LC-MS/MS. Blood Venous blood specimen / Unknown 01/26/2025 10:44 AM EDT 01/26/2025 1:38 PM EDT us Tish Fontana MACHINE OPERATOR HELPER LAB BLOOD ORDERABLES Final Res ult [facility] [address] [place] [phone] * Vitamin B12/Folate, Serum Panel (01/26/2025 10:44 AM EDT) Vitamin B12 493 200 - 900 pg/mL [facility] Comment:NORMAL 200-900 PG/M L INDETERMINATE 160-199 PG/ML DEFICIENT < 160 PG/ML Folate 8.2 > or = 4.0 ng/mL [facility] Comment:Reference Values:> o r = 4.0 ng/mL< 4.0 ng/mL suggests folate deficiency Methotrexate, aminopterin and folinic acid(leucovorin) are chemotherapeutic agents whose molecularstructures are similar to folate; therefore, the Architectfolate assay cannot be used for patients using these drugs. Blood Venous blood specimen / Unknown 01/26/2025 10:44 AM EDT 01/26/2025 1:38 PM EDT Tish Fontana [facility] LAB BLOOD ORDERABLES Final Res ult Performing Organization Address [facility] de Phone Number [facility] [address] [place] [phone] * TSH with Reflex to Free T4 (01/26/2025 10:44 AM EDT) [facility] TSH reflex Free T4 0.93 0.32 - 4.0 uIU/mL [facility] Blood 01/26/2025 10:4 4 AM EDT 01/26/2025 1:38 PM EDT Tish Fontana [facility] LAB BLOOD ORDERABLES Final Res ult Performing Organization Address [facility] Co de Phone Number [facility] [address] [place] [phone] * Hepatitis C Viral RNA, Quantitative, Real-Time PCR (01/26/2025 10:44 AM EDT) [facility] Hepatitis C Viral Load <15 NOT DETECTED NOT DETECTED IU/mL [facility] HCV Log PCR <1.18 NOT DETECTED NOT DETECTED Log IU/mL [facility] Comment:For additional infor levi, please refer [email or web address]/[email or web address](This link is being provided for informational/educational purposes only.)THIS TEST WAS PERFORMED AT:[facility] [place] [phone] HYLTON MD Blood 01/26/2025 10:4 4 AM EDT 01/26/2025 1:38 PM EDT Tish Fontana MACHINE OPERATOR HELPER LAB BLOOD ORDERABLES Final Res ult Performing Organization Address [facility] de Phone Number [facility] [address] [place] [phone] * Albumin, Random Urine W/Creatinine (01/26/2025 10:44 AM EDT) Creatinine, Urine 205.99 mg/dL [facility] Microalbumin Urine 17.0 mg/L [facility] Microalbum Creatinine Ratio Ur 8.2 <30 ug/mg cr [facility] Comment:Albumin/Creatinine R atio Reference Ranges: Normal: < 30 ug/mg creatinine Microalbuminuria: 30 - 300 ug/mg creatinineClinical Albuminuria: > 300 ug/mg creatinine Urine 01/26/2025 10:4 4 AM EDT 01/26/2025 1:10 PM EDT Tish Fontana MACHINE OPERATOR HELPER LAB URINE ORDERABLES Final Res ult Performing Organization Address [facility] de Phone Number [facility] [address] [place] [phone] * CBC auto differential (01/26/2025 10:44 AM EDT) White Blood Count 6.0 4.8 - 10.8 X10*3/uL [facility] Red Blood Count 4.39 4.20 - 5.50 X10*6/uL [facility] Hemoglobin 13.0 12.0 - 16.0 g/dl [facility] Hematocrit 39.3 37.0 - 47.0 % [facility] Mean Corpuscular Volume 89.5 80.0 - 98.0 fL [facility] Mean Corpuscular Hemoglobin 29.6 27.0 - 33.0 pg [facility] Mean Corpuscular HGB Conc 33.1 31.0 - 35.0 g/dl [facility] Red Cell Distribution Width 13.4 11.0 - 16.0 % [facility] Platelet Count 213 160 - 400 X10*3/uL [facility] Mean Platelet Volume 11.2 9.4 - 12.3 fL [facility] Neutrophils Percent Auto 55.4 45 - 73 % [facility] Imm Gran Pct Auto 0.2 0.0 - 0.4 % [facility] Lymphocytes Percent Auto 30.9 20 - 40 % [facility] Monocytes Percent Auto 10.3 2 - 11 % [facility] Eosinophils Percent Auto 3.0 0 - 4 % [facility] Basophils Percent Auto 0.2 0 - 2 % [facility] NRBC Pct Auto 0.0 0.0 - 0.2 /100WBC [facility] Neutrophils Absolute Auto 3.3 2.0 - 8.3 x10*3/uL [facility] Imm Gran Abs Auto 0.01 0.00 - 0.03 X10*3/uL [facility] Lymphocytes Absolute Auto 1.9 1.2 - 4.9 X10*3/uL [facility] Monocytes Absolute Auto 0.6 0.1 - 1.2 X10*3/uL [facility] Eosinophils Absolute Auto 0.2 0.0 - 0.4 X10*3/uL [facility] Basophils Absolute Auto 0.0 0.0 - 0.2 X10*3/uL [facility] NRBC Abs Auto 0.000 0.0 - 0.012 X10*3/uL [facility] Blood Venous blood specimen / Unknown 01/26/2025 10:44 AM EDT 01/26/2025 1:38 PM EDT us Tish Fontana MACHINE OPERATOR HELPER LAB BLOOD ORDERABLES Final Res ult Performing Organization Address City/[facility]/ZIP Co de Phone Number [facility] [address] [place] [phone] [phone] * Iron And Total Iron Binding Capacity (01/26/2025 10:44 AM EDT) Pathologist [facility] Iron 53 30 - 160 mcg/dL [facility] Total Iron Binding Capacity 246 228 - 428 mcg/dL [facility] Percent Iron Saturation 22 15 - 50 % [facility] Unsaturated Iron Binding 193 ug/dL [facility] Blood Venous blood specimen / Unknown 01/26/2025 10:44 AM EDT 01/26/2025 1:38 PM EDT Tish Fontana MACHINE OPERATOR HELPER LAB BLOOD ORDERABLES Final Res ult Performing Organization Address [facility] Co de Phone Number [facility] [address] [place] [address] [phone] * Chlamydia/N. Gonorrhoeae RNA, TMA, Urogenitial (01/26/2025 10:44 AM EDT) [facility] CT PCR NOT DETECTED Not Detect. [facility] Comment:A not detected test result does not exclude the possibilityof infection because test results can be affected byimproper specimen collection, concurrent antibiotic therapy,or the number of organisms in the specimen which may bebelow the sensitivity of the test. As with many diagnostictests, results from the Xpert CT/NG assay should beinterpreted in conjunction with other laboratory andclinical data available to the clinician.Xpert CT/NG performance has not been evaluated in patientsless than 14 years of age. The assay should not be used forthe evaluationof suspected sexual abuse or for other medico-legalindications. Additional testing is recommended in anycircumstance when false positive or false negative resultscould lead to adverse medical, social or psychologicalconsequences. NG PCR NOT DETECTED Not Detect. [facility] [facility] Comment:A not detected test result does not exclude the possibilityof infection because test results can be affected byimproper specimen collection, concurrent antibiotic therapy,or the number of organisms in the specimen which may bebelow the sensitivity of the test. As with many diagnostictests, results from the Xpert CT/NG assay should beinterpreted in conjunction with other laboratory andclinical data available to the clinician.Xpert CT/NG performance has not been evaluated in patientsless than 14 years of age. The assay should not be used forthe evaluationof suspected sexual abuse or for other medico-legalindications. Additional testing is recommended in anycircumstance when false positive or false negative resultscould lead to adverse medical, social or psychologicalconsequences. Urine (Urine, Random) 01/26/2025 10:44 AM EDT 01/26/2025 1:10 PM EDT Narrative [facility] - 01/26/2025 2:57 PM EDT Urine Tish Fontana [facility] MICROBIOLOGY - GENERAL ORD ERABLES Final Result Performing Organization Address [facility]/ZIP Co de Phone Number [facility] [address] [place] [phone] * RPR (Monitor) with Reflex to??Titer (01/26/2025 10:44 AM EDT) RPR (Monitor) w/Refl Titer NON-REACTI VE NON-REACT DANO [facility] Comment:THIS TEST WAS PERFOR MED AT:[facility] [address] [phone] HYLTON MD Rapid Plasma Reagin Ab Titer TNP [facility] Blood Venous blood specimen / Unknown 01/26/2025 10:44 AM EDT 01/26/2025 1:38 PM EDT Tish Fontana [facility] BLOOD ORDERABLES Final Res ult Performing Organization Address [facility]/ZIP Co de Phone Number [facility] [address] [place] [phone] * HIV-1/2 Antigen and Antibodies, Fourth Generation, with Reflexes (01/26/2025 10:44 AM EDT) Pathologist [facility] [place] HIV AB/AG Nonreactive Nonreactive [facility] Comment:HIV-1 p24 Ag and/or HIV-1/HIV-2 Ab not detected.A test result that is nonreactive does not exclude thepossibility of exposure to or infection with HIV-1 and/orHIV-2. Nonreactive results in this assay for individualswith prior exposure to HIV-1 and/or HIV-2 may be due toantigen and antibody levels that are below the limit ofdetection of this assay.The Tradoria HIV Ag/Ab Combo assay result andsupplemental assay results should be interpreted inconjunction with the patient's clinical presentation,history and other laboratory results. If the results areinconsistent with clinical evidence, additional testing issuggested to confirm the result. Blood Venous blood specimen / Unknown 01/26/2025 10:44 AM EDT 01/26/2025 1:38 PM EDT Tish Fontana [facility] BLOOD ORDERABLES Final Res ult Performing Organization Address [facility]/ZIP Co de Phone Number [facility] [address] [place] [phone] * Magnesium (01/26/2025 10:44 AM EDT) [facility] Magnesium 2.0 1.6 - 2.6 mg/dL [facility] Blood Venous blood specimen / Unknown 01/26/2025 10:44 AM EDT 01/26/2025 1:38 PM EDT Tish Fontana [facility] BLOOD ORDERABLES Final Res ult Performing Organization Address [facility] Co de Phone Number [facility] [address] [place] [phone] * (ABNORMAL) Hemoglobin A1c (01/26/2025 10:44 AM EDT) [facility] Hemoglobin A1c 6.4(H) <6.0 % [facility] Comment:Hemoglobin A1C Refer ence Range Adults: 4.8 - 6.0 % Non diabetic: < 6.0 % Goal: < 7.0 %Additional Action Suggested: > 8.0 %Note: Hemoglobin A1c results are invalid for patients with abnormal amounts of HbF. Blood transfusions may impact the HbA1c concentration in the patient sample. Estimated Average Glucose 137 mg/dL [facility] Comment:eAG = Estimated ave rage glucose which is %A1C expressed asaverage glucose, using the formula of the W0W-FwosejdCtzkbdy Glucose study (ADAG), Diabetes Care, Vol.31,#8,Apr. 2007 Blood Venous blood specimen / Unknown 01/26/2025 10:44 AM EDT 01/26/2025 1:38 PM EDT Tish Fontana [facility] BLOOD ORDERABLES Final Res ult Performing Organization Address [facility]/ZIP Co de Phone Number [facility] [address] [place] [phone] * Ferritin (01/26/2025 10:44 AM EDT) Ferritin 98 10 - 250 ng/mL [facility] Blood Venous blood specimen / Unknown 01/26/2025 10:44 AM EDT 01/26/2025 1:38 PM EDT Tish Fontana [facility] BLOOD ORDERABLES Final Res ult Performing Organization Address City/[facility] Co de Phone Number [facility] [address] [place] [phone] * Lipid Panel, Standard (01/26/2025 10:44 AM EDT) Triglycerides 73 <150 mg/dL [facility] Comment:Desirable Triglyceri de: less than 150 mg/dLBorderline High Triglyceride 150-199 mg/dLHigh Triglyceride: 200-499 mg/dLVery High Triglyceride: greater than or equal to 5OO mg/dL Cholesterol 140 <200 mg/dL [facility] Comment:Desirable Cholestero l: less than 200 mg/dLBorderline High Cholesterol: 200-239 mg/dLHigh Cholesterol: greater than 239 mg/dL LDL Cholesterol Calculated 79 <100 mg/dL [facility] Comment:Desirable LDL: less than 100 mg/dLNear Optimal/Above Optimal LDL: 110- 129 mg/dLBorderline High LDL: 130-159 mg/dLHigh LDL: 160-189 mg/dLVery High LDL: greater than or equal to 190 mg/dL HDL Cholesterol 47 >40 mg/dL [facility] Comment:Desirable HDL: great er than 40 mg/dL Note: This HDL assay may give artificially low results in patients with liver disease. Blood Venous blood specimen / Unknown 01/26/2025 10:44 AM EDT 01/26/2025 1:38 PM EDT us Tish Fontana MACHINE OPERATOR HELPER LAB BLOOD ORDERABLES Final Res ult [facility] [address] [place] [phone] * Comprehensive Metabolic Panel (01/26/2025 10:44 AM EDT) Sodium 142 135 - 145 mmol/L [facility] Potassium 3.7 3.3 - 5.1 mmol/L [facility] Chloride 107 96 - 108 mmol/L [facility] Carbon Dioxide 27 22 - 29 mmol/L [facility] Anion Gap 12 12 - 20 [facility] Urea Nitrogen (BUN) 11 9 - 16 mg/dL [facility] Creatinine, Serum 0.75 0.5 - 1.4 mg/dL [facility] Estimated Glomerular Filt Rate >60 [facility] Comment:Chronic Kidney Disea se: Estimated GFR < 60 mL/min/1.83n2Alwkvl Kidney Disease: Estimated GFR < 15 mL/min/1.73m2 Glucose 114 60 - 115 mg/dL [facility] Calcium 9.4 8.4 - 10.2 mg/dL [facility] Bilirubin, Total 0.3 0.0 - 1.0 mg/dL [facility] Aspartate Amino Transferase 21 5 - 31 U/L [facility] Alanine Aminotransferase 14 0 - 31 U/L [facility] Total Protein 7.1 6.5 - 8.0 g/dL [facility] Albumin Level 4.0 3.5 - 5.0 g/dL [facility] Alkaline Phosphatase 86 39 - 117 U/L [facility] Blood Venous blood specimen / Unknown 01/26/2025 10:44 AM EDT 01/26/2025 1:38 PM EDT us Tish Fontana [employer]ACHINE OPERATOR HEL[employer] LAB BLOOD ORDERABLES Final Res ult [facility] [address] [place] [phone] * (ABNORMAL) POCT HGB A1C (01/26/2025 9:21 AM EDT) Hemoglobin A1C 6.5(A) 4.0 - 6.0 % QC Media Lot # [id number] Lot# Expiration Date ,027 Blood 01/26/2025 9:21 AM EDT us Tish Fontana MACHINE OPERATOR HELPER POINT OF CARE TEST ENTER/EDIT ORDERABLES Final Result * POCT Glucose (01/26/2025 9:21 AM EDT) Glucose Blood, POC 136 60 - 200 mg/dL Comment:Fasting QC Media Lot # [id number] Lot# Expiration Date 025 Blood Capillary blood specimen / Unknown 01/26/2025 9:21 AM EDT us Tish Fontana MACHINE OPERATOR HELPER POINT OF CARE TEST ENTER/EDIT ORDERABLES Edited Result - Final * BI Mammogram Screening Tomosynthesis Bilateral (01/13/2025 1:30 PM EDT) Anatomical Region Laterality Modality Breast Bilateral Mammography 01/13/2025 1:30 PM EDT Narrative 01/21/2025 4:48 PM EDT [address] [place], [place] [address] Mammography Report Signed Patient: Lucie Arguelles MR#: [id number] : 1965 Acct:[id number] Age/Sex: 59 / F ADM Date: 01/13/25 Loc: HO.MAMMO Attending Dr: Tish Fontana MACHINE OPERATOR HELPER Ordering Physician: Tish Fontana Results: 1Negat dano Date of Service: 01/13/25 Follow Up: 1 Year From Orig inal Mammogram Procedure(s): MM tomosynthesis screening BI Accession Number(s): [id number] cc: Tish Fontana MACHINE OPERATOR HELPER EXAMINATION: MM SCREENING DIGITAL BREAST TOMOSYNTHESIS, BILATERAL [...] 01/21/25 1644 DD/ 1330 TD/TT: 01/13/25 1344 Dyer Assistant: Procedure Note Donotuseinterpreter, Image - 01/21/[address] [place], [place] [address] Mammography Report Signed Patient: Lucie Arguelles EMR#: [id number] : 1965Acct:[id number] Age/Sex: 59 / FADM Date: 01/13/25 Loc: HO.MAMMO Attending Dr: Tish Fontana MACHINE OPERATOR HELPER Ordering Physician: Tish FontanaPResults: 1Negat dano Date of Service: 01/13/25Follow Up: 1 Year From Orig inal Mammogram Procedure(s): MM tomosynthesis screening BI Accession Number(s): [id number] cc: Tish Fontana EXAMINATION: MM SCREENING DIGITAL BREAST TOMOSYNTHESIS, BILATERAL [...] 01/21/25 1644 DD/ 1330 TD/TT: 01/13/25 1344 Dyer Assistant: Tish TA IMG BI PROCEDURES Final Result * XR Hip 2 or 3 Views Right (12/30/2024 2:58 PM EDT) Anatomical Region Laterality Modality Lower Extremities, Hip Right Radiograp hic Imaging 12/30/2024 2:58 PM EDT Narrative 12/30/2024 3:32 PM EDT [address] [address] XRay Report Signed Patient: Lucie Arguelles MR#: [id number] : 1965 Acct:[id number] Age/Sex: 59 / F ADM Date: 12/30/24 Loc: HO.HHCX Attending Dr: Emely Valerio DO Ordering Physician: Emely Valerio DO Date of Service: 12/30/24 Procedure(s): XR hip RT min 2V Accession Number(s): [id number] cc: Emely Valerio DO EXAMINATION: XR HIP, [...] 12/30/24 1529 DD/ 1458 TD/TT: 12/30/24 1500 Dyer Assistant: Procedure Note Donotuseinterpreter, Image - 12/30/[address] [address] XRay Report Signed Patient: Lucie Arguelles EMR#: [id number] : 1965Acct:[id number] Age/Sex: 59 / FADM Date: 12/30/24 Loc: HO.HHCX Attending Dr: Emely Valerio DO Ordering Physician: Emely Valerio DO Date of Service: 12/30/24 Procedure(s): XR hip RT min 2V Accession Number(s): [id number] cc: Emely Valerio DO EXAMINATION: XR HIP, [...] 12/30/24 1529 DD/ 1458 TD/TT: 12/30/24 1500 Dyer Assistant: Emely Valerio DO IMG XR PROCEDURES Final Resu lt * XR Hip 2 or 3 Views Left (12/30/2024 2:58 PM EDT) Anatomical Region Laterality Modality Lower Extremities, Hip Left Radiograp hic Imaging 12/30/2024 2:58 PM EDT Narrative 12/30/2024 3:31 [place] [address] XRay Report Signed Patient: Lucie Arguelles MR#: [id number] : 1965 Acct:[id number] Age/Sex: 59 / F ADM Date: 12/30/24 Loc: HO.HHCX Attending Dr: Emely Valerio DO Ordering Physician: Emely Valerio DO Date of Service: 12/30/24 Procedure(s): XR hip LT min 2V Accession Number(s): [id number] cc: Emely Valerio DO EXAMINATION: XR HIP, [...] Les Ro MD 12/30/2024 03:28 PM EDT RP Dictated By: Les Ro MD Signed By: <Electronically signed by Les Ro MD in OV> 12/30/24 1528 DD/ 1458 TD/TT: 12/30/24 1500 Dyer Assistant: Procedure Note Donotuseinterpreter, Image - 12/30/[address] [address] XRay Report Signed Patient: Lucie Arguelles EMR#: [id number] : 1965Acct:[id number] Age/Sex: 59 / FADM Date: 12/30/24 Loc: HO.HHCX Attending Dr: Emely Valerio DO Ordering Physician: Emely Valerio DO Date of Service: 12/30/24 Procedure(s): XR hip LT min 2V Accession Number(s): [id number] cc: Emely Valerio DO EXAMINATION: XR HIP, [...] Les Ro MD 12/30/2024 03:28 PM EDT RP Dictated By: Les Ro MD Signed By: <Electronically signed by Les Ro MD in OV> 12/30/24 1528 DD/ 1458 TD/TT: 12/30/24 1500 Dyer Assistant: Emely Valerio DO IMG XR PROCEDURES Final Resu lt * XR Lumbar Spine 2-3 Views (12/30/2024 2:58 PM EDT) Anatomical Region Laterality Modality Spine, L-spine Radiographic Flor ging 12/30/2024 2:58 PM EDT Narrative 12/30/2024 3:37 PM EDT [facility] [address] [place] [address] XRay Report Signed Patient: Lucie Arguelles MR#: [id number] : 1965 Acct:[id number] Age/Sex: 59 / F ADM Date: 12/30/24 Loc: HO.HHCX Attending Dr: Emely Valerio DO Ordering Physician: Emely Valerio DO Date of Service: 12/30/24 Procedure(s): XR lumbar spine 2-3V Accession Number(s): [id number] cc: Emely Valerio DO EXAMINATION: XR LUMBOSACRAL SPINE CLINICAL INFORMATION: acute worsening LBP x one mos with b/l hip pain COMPARISON: 06/22/2014. MRI lumbar 01/02/2018. TECHNIQUE: Three views of the lumbosacral spine. FINDINGS: Moderate levoconvex scoliosis, worsened since 2013. Staples at L2. There is a rotatory component. [...] 12/30/24 1534 DD/ 1458 TD/TT: 12/30/24 1500 Dyer Assistant: Procedure Note Donotuseinterpreter, Image - 12/30/2024 [facility] [address] [place] [address] XRay Report Signed Patient: Lucie Arguelles EMR#: [id number] : 1965Acct:[id number] Age/Sex: 59 / FADM Date: 12/30/24 Loc: HO.HHCX Attending Dr: Emely Valerio DO Ordering Physician: Emely Valerio DO Date of Service: 12/30/24 Procedure(s): XR lumbar spine 2-3V Accession Number(s): [id number] cc: Emely Valerio DO EXAMINATION: XR LUMBOSACRAL SPINE CLINICAL INFORMATION: acute worsening LBP x one mos with b/l hip pain COMPARISON: 06/22/2014. MRI lumbar 01/02/2018. TECHNIQUE: Three views of the lumbosacral spine. FINDINGS: Moderate levoconvex scoliosis, worsened since 2013. Staples at L2. There is a rotatory component. [...] 12/30/24 1534 DD/ 1458 TD/TT: 12/30/24 1500 Dyer Assistant: us Emely Jurcsak DO IMG XR PROCEDURES Final Resu lt * HPV E6/E7 RFLX TANNER 16 18/45 (01/15/2022 2:53 PM EDT) HPV 16 RNA [facility] HPV 18/45 RNA [facility] HPV E6 E7 ADD [facility] HPV mRNA E6/E7 rflx Not Detected Not Detected [facility] Comment: Methodology: Emergency Dept Tech-Mediated Amplification This assay detects E6/E7 viral messenger RNA (mRNA) from 14 high-risk HPV types (16,18,31,33,35,39,45,51,52,56,58,59,66,68). The analytical performance characteristics of this assay have been determined by [employer]. The modifications have not been cleared or approved by the FDA. This assay has been validated pursuant to the CLIA regulations and is used for clinical purposes. For additional information, please refer to http://education.Dabble/faq/FDU777u5 (This link if provided for information/ educational purposes only.) THIS TEST WAS PERFORMED AT: [facility] [address] [place] [address],[place] [address] TINY HYLTON MD 01/15/2022 2:53 PM EDT Jean Quinn MD HISTORICAL/NON ORDERABLE LABS Fi nal Result [facility] [address] * Colonoscopy (09/10/2016) Pathologist [facility] [place] Colonoscopy Normal Normal 09/10/2016 Narrative Ruth Rob - 09/10/2016 11:20 AM EST Recommended 10 year follow up Historical Provider HEALTH MAINTENANCE Edited Result - Final from Last 3 Months or Most Recently Relevant to Health Maintenance Insurance [employer] Care Teams Wheat Buyer Relationship Specialty Start Date End Date Tish Fontana FNP [address] [place] [address] PCP - General Family Medicine 05/18/22
== END 2025-03-28 14:07 | disposition home or self-care (01) ==
LOC: HO.HWS 13:35
PROVIDERS: PCP Registered Nurse; Visit Provider Obstetrics & Gynecology
DX: Z01.419 Encounter for gynecological examination (general) (routine) without abnormal findings (principal)
CPT/HCPCS: 99396; 99459

== ENCOUNTER 2025-03-28 13:34 | Outpatient (REF) | payer MEDICAID, SELFPAY | END 2025-03-28 13:35 | disposition home or self-care (01) | LOC: HO.LNP 13:34 | PROVIDERS: PCP Registered Nurse; Visit Provider Obstetrics & Gynecology | DX: Z01.419 Encounter for gynecological examination (general) (routine) without abnormal findings (principal); N87.0 Mild cervical dysplasia; N95.0 Postmenopausal bleeding | CPT/HCPCS: 87626; 88175; 99396 ==

== ENCOUNTER 2025-04-15 08:25 | Outpatient (AMB) | payer MEDICAID, SELFPAY ==
[2025-04-15 08:26] VITALS: BMI 35.7
--- NOTE | 2025-04-15 08:26 | MHC.OFFVIS ---
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 Patient was referred by Emely Valerio DO of [facility] on 02/02/25. Patient was referred to Pain Mgmt 07/03/21, has a HX of B/L back and B/L knee pain. Patient was sent for X Rays of the Right and Left hip, Lumbar spine on 12/30/24. At today's visit she states that she does not have any pain to report. She added that the left leg does become numb after standing for long periods of time. She states that she tried injections and physcial therapy but didn't last. Allergies citalopram Allergy (Verified 04/15/25 08:30) facial tic methocarbamol Adverse Reaction (Intermediate, Verified 04/15/25 08:30) insomnia Medication List - Last Reconciled 04/15/25 by Jazmine Snyder MD alcohol swabs (BD Alcohol Swabs) 0 pad topical back brace As directed cetirizine 10 mg PO DAILY PRN cholecalciferol (vitamin D3) (Vitamin D3) 50 mcg PO DAILY cyclobenzaprine 10 mg PO BID PRN 30 days diltiazem HCl CD (Cartia XT) 2 caps PO DAILY docusate sodium 100 mg PO BEDTIME PRN fluticasone propionate 50 mcg/actuation 1 spray intranasal BID PRN ketotifen fumarate 0.025%(0.035%) 1 drp ophthalmic (eye) BID PRN lancets (FreeStyle Lancets) As directed losartan 1 tab PO DAILY metformin 500 mg PO BID pantoprazole 40 mg PO BID pravastatin 10 mg PO DAILY HPI Comments Details: Previous patient in pain management 2021. Per their note, patient had L2-3 transforaminal epidural injection with lasting relief, at least many months. No follow up since then. Patient also saw Dr. Rico last year 2023 for knee pain. Reviewed well woman visit from marketing and communications officer recently. Recent lumbar x-ray showed multilevel spondylosis, disc space narrowing, large anterior endplate spurs L2-3 and L3-4. Scoliosis. She denies any pain today. Last pain was 2-3 months ago. Had sciatica right sided. Maybe associated with working in the house or lifting grandson. Once a week would have mild pain . Severe episodes maybe 2x a year. This time she was given 1 week course of steroid and that seemed to help her the most. Takes cyclobenzaprine as needed. Baclofen as needed. Naproxen as needed. Last MRI years ago at [facility]. She does the home exercises taught by PT. She still gets numb left side when standing. That's chronic. [facility] Medical History DVT (deep venous thrombosis) COVID-19 vaccine series completed GERD (gastroesophageal reflux disease) Elevated cholesterol HTN (hypertension) Diabetes mellitus Tachycardia Surgical History Hx of breast biopsy S/P laparoscopic cholecystectomy (07/11/21) History of endometrial ablation H/O colonoscopy Hx of dilation and curettage Hx of hemorrhoidectomy History of right knee surgery H/O tubal ligation Family History Mother Uterine cancer Father Prostate cancer Family/Other History of breast cancer Family/Other Ovarian cancer Brother Prostate cancer Social History (Updated 04/15/25 @ 08:33 by Meseret Bower) Household Members: Spouse Household Members Other:: son Housing: Apartment Are you a primary career consultant to a significant other at home: No Do you presently have visiting nurse or other home services: No Alcohol intake: never Patient Tobacco Use Status: Never used Tobacco Current occupational status: unemployed and disabled Sexual orientation: Straight/Heterosexual Gender identity: Female Female Reproductive History Menstrual Age of Menarche: 14 Review of Systems Const All systems reviewed & are unremarkable except as noted in HPI and below Physical Exam Exam Exam: Constitutional: Patient appears to be in no acute distress, well nourished and well developed. Patient was appropriately conversant and oriented. Good historian. Neurological: Neurologic examination of the upper and lower extremities was nonfocal with intact sensation, muscle stretch reflexes and without focal motor deficits . Babinski was down going bilaterally. Clonus was negative. Gait is non-antalgic without loss of balance. Vital Signs: BMI result Body Mass Index 35.7 Results Reviewed Results Reviewed: I independently reviewed the results of the following: X-rays discussed as above Ordering Physician: Emely Valerio DO Date of Service: 12/30/24 Procedure(s): XR lumbar spine 2-3V Accession Number(s): [id number] cc: Emely Valerio DO~ EXAMINATION: XR LUMBOSACRAL SPINE CLINICAL INFORMATION: acute worsening LBP x one mos with b/l hip pain COMPARISON: 06/22/2014. MRI lumbar 01/02/2018. TECHNIQUE: Three views of the lumbosacral spine. FINDINGS: Moderate levoconvex scoliosis, worsened since 2013. Sherrard at L2. There is a rotatory component. There is a normal lordosis. There is no definite subluxation. There is no fracture, compression deformity, or suspicious bone lesion. There is moderate to severe multilevel disc degeneration, with disc vacuum phenomenon at all levels. There are large right laterally and anteriorly projecting disc osteophytes, most notable spanning L2-3, and L3-4. There are sclerotic type endplate changes present at L1 to, L2-3, and L3-4. Multilevel degenerative facet changes present throughout. The sacrum appears intact. There are mild to moderate arthritic changes in the right than left SI joints. There are cholecystectomy clips. Soft tissues otherwise normal. XR/XR lumbar spine 2-3V IMPRESSION: 1. Worsening levoconvex scoliosis, now moderate. 2. Worsening multilevel moderate to severe spondylosis. Electronically signed by: Les Ro MD 12/30/2024 03:34 PM EDT I reviewed records from the following: As above Assessment & Plan Assessment & Plan (1) Lumbar spondylosis: Code(s): M47.816 - Spondylosis without myelopathy or radiculopathy, lumbar region Category: Medical (2) Chronic back pain: Code(s): M54.9 - Dorsalgia, unspecified; G89.29 - Other chronic pain Category: Medical Qualifiers: Back pain location: low back pain Back pain laterality: left Sciatica presence: with sciatica Sciatica laterality: sciatica of left side Qualified Code(s): M54.42 - Lumbago with sciatica, left side; G89.29 - Other chronic pain Plan Chronic recurrent lower back pain. Lumbar x-rays shows moderate spondylosis, decreased disc spaces. Previous lumbar epidural injection at least provided several months of relief. Her pain is manageable/tolerable at best. Discussed whether we should get lumbar MRI again. Patient opted to wait awhile as she does not have pain right now. She will continue with home exercises at home. Assessment and plan discussed with patient, and patient was agreeable. All questions were answered thoroughly. Follow up 3 months. Patient will call if she developed severe pain again. Jazmine Snyder MD, PHYL[place]IA Board Certified, [place] [employer] and Rehabilitation (ABPMR) Board Certified, [place] Board of Electrodiagnostic Medicine (ABEM) Coding Level of Care Code New Pt Level 3 (29553) Diagnoses Lumbar spondylosis M47.816 Chronic left-sided low back pain with left-sided sciatica M54.42; G89.29 Back pain location: low back pain Back pain laterality: left Sciatica presence: with sciatica Sciatica laterality: sciatica of left side
--- OUTSIDE RECORDS SUMMARY | 2025-04-15 08:36 | XMS_ITS | Clinical Summary ---
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 100 each 11 4 Active glucose blood (FREESTYLE LITE) test stripIndications :Type 2 diabetes mellitus without complication, without long-term current use of insulin ([facility]) USE TO TEST BLOOD SUGAR ONCE [...] Plan (04/06/2024 5:24 PM EDT): Following with [facility] - Dr. Quinn Identified on US 02/19/24 - tiny 1cm intramural myoma in left body of the uterus. Plan: expectant management with repeat pelvic US periodically Postcoital bleeding 04/06/2024 Assessment & Plan (06/27/2024 4:06 PM EDT): Following with [facility] - Dr. Quinn. Pelvic US 01/30/24: 1. [...] mild atypia, suspicious for ARISTIDES 1 03/23/24: [facility] - Dr. Quinn. Recommended co-testing in 12 months. Plan to call if she experiences any more vaginal bleeding (PCB) Had consult at [facility] for consideration of lap hysterectomy, encouraged to defer at this time Assessment & Plan (04/06/2024 5:28 PM EDT): Following with [facility] - Dr. Quinn. Pelvic US 01/30/24: 1. [...] this week to discuss next steps with [employer]ING GROUP LE[employer]ER. Given her PMB, PCB, and family history, [...] due for co-testing February 2025. Following with [facility] -Mammogram: 01/13/25: BIRADS 1 -Colonoscopy: normal 2015, due 2025 -Optometry: [facility] Jul 2023 -Dental: established with [facility] Dental -Last physical exam: 01/26/2025 Essential hypertension [...] week as able. -Eye: Jul [address] [facility] -Microalbumin 24 December 2022 Assessment & Plan (04/06/2024 5:33 PM EDT): Well controlled Anxiety 06/18/2018 Overview (05/02/2023): Following with [facility] Diagnoses include: MDD & LEONIE Lumbar radiculopathy 06/18/2018 Gastroesophageal reflux disease 06/16/2012 Supraventricular tachycardia 06/16/2012 Overview (01/28/2025): -Continue Cardizem 360mg daily - Previously followed with cardiology Assessment & Plan (01/28/2025 8:19 PM EDT): Well-controlled, continue current therapy Resolved Problems Problem Noted Date Diagnosed Date Resolved Date Flushing 09/23/2018 06/27/2024 Allergic rhinitis 06/16/2012 01/28/2025 Encounters Date Type Department Care Team Description 03/28/2025 Orders Only GENERIC EXTERNAL DATA DEPARTMENT Provider, Generic External Data 03/07/2025 Telephone [facility] [place] [facility] [address] [place] [address] Tish Fontana FNP Arialief Supplement 02/25/2025 Telephone [facility] [address] [place] [phone] Tish Fontana FNP Nurse Triage 02/16/2025 Results Follow-Up [facility] [place] [facility] [address] [place] [address] Tish Fontana FNP POCT Glucose, POCT HGB A1C, Albumin, Random Urine W/Creatinine, Additional followed-up results: 14 02/04/2025 Refill [facility] [place] [facility] [address] [place] [address] Tish Fontana FNP 01/31/2025 Orders Only [facility] [address] [place] [phone] Emely Valerio DO Acute bilateral low back pain with right-sided sciatica (Primary Dx) 01/26/2025 9:15 AM EDT Office Visit [address] [address] Tish Fontana FNP Encounter for routine history and physical examination of adult (Primary Dx); Dietary counseling; Exercise counseling; Routine health maintenance; Type 2 diabetes mellitus without complication, without long-term current use of insulin ([facility]); Essential hypertension; Supraventricular tachycardia ([facility]); Constipation, unspecified constipation type; Seasonal allergies; Pain of left lower extremity; Other irritable bowel syndrome; Vasomotor symptoms due to menopause 01/26/2025 Patient Outreach [facility] [address] [place] [address] Tish Fontana FNP Care Coordination (CHW outreach for SDOH food needs-referral completed /) 01/26/2025 Travel 01/25/2025 Telephone [facility] [place] [facility] [address] [place], [place] [phone] Tish Fontana FNP Chart Prep 01/24/2025 Outside Procedure [facility] [address] [place] [address] Javon, Sindy, OD Presbyopia (Primary Dx) 01/21/2025 1:30 PM EDT Office Visit [facility] [address] [place] [address] Javon Sindy, OD Hyperopia of both eyes (Primary Dx) from Last 3 Months Immunizations Immunization Administration [...] Description 04/27/2025 10:00 AM EDT Office Visit [facility] [address] [place] [address] Tish Fontana FNP [address] [place] [address] Health Maintenance Due Date Last Done Comments [...] 12/17/2024, Additional history exists Cervical Cancer Screening 03/28/2030 HPV/Cotest 03/28/2030 03/28/2025, 2 02/2022, 01/15/2022 Pap Smear 03/28/2030 03/28/2025 DTaP/Tdap/Td Vaccines (3 - Td or Tdap) [...] Procedure Name Priority Date/Time Associated Diagnosis Comments PAP SMEAR Routine 03/28/2025 2:03 PM EDT HPV DNA, LOW/HIGH RISK Routine 1:34 PM EDT VITAMIN D,25-OH,TOTAL,IA Routine 01/26/2025 10:44 AM EDT [...] complication, without long-term current use of insulin ([facility]) POCT GLUCOSE Routine 01/26/2025 9:21 AM EDT Type 2 diabetes mellitus without complication, without long-term current use of insulin ([facility]) BI MAMMOGRAM SCREENING TOMOSYNTHESIS BILATERAL Routine 01/13/2025 1:30 PM EDT HM COLONOSCOPY Routine 09/10/2016 from Last 3 Months or Most Recently Relevant to Health Maintenance Results * Pap Smear (03/28/2025 2:03 PM EDT) 03/28/2025 2:03 PM EDT 03/29/2025 8:20 AM EDT [facility] - 04/04/2025 12:30 PM EDT ----- ------- Name: Blane,Lucie E Age/Sex: 59/F [facility] 1965 [id number] Unit#: [id number] Attend Dr: Jean Quinn MD Re03/28/25 Status: [facility] REF Location: [facility] Disch: ----- ------- SPEC : [id number] RECD: 03/29/25 STATUS: CHANO YOUNGBLOOD NUM: [id number] NOMI: 03/28/25-1403 [facility] DR: Jean Quinn MD ENTERED: 03/29/25 SP TYPE: Pap Smr OTHR DR: Tish Fontana [facility] ORDERED: Pap Smear Interpretation Satisfactory for evaluation (following reprocessing with acid wash procedure) Negative for intraepithelial lesion or malignancy. Atrophic. Obscuring inflammation. HPV High Risk: Negative HPV Genotyping 16: Negative HPV Genotyping 18: Negative Clinical Information LMP: Unknown date Previous PAP test: 01/16/2022, ARISTIDES 1 Other history: Cervical intraepithelial neoplasia Grade 1 Material Received ThinPrep-Cervical PAP Disclaimer As of July 14, 2024, the technical services to include automated prescreening performed by the ThinPrep Imaging System, PAP screening and HPV testing will be performed at [facility] (CLIA #[id number]), [address] [place] [address]. Testing for HPV was performed using the David HILTON 6800 system. The presence of HPV in the female genital tract is associated with a number of diseases, including cervical carcinoma. The HPV DNA high risk pool tests for HPV 31, 33, 35, 39, 45, 51, 52, 56, 58, 59, 66 and 68. The testing for HPV 16 and 18 genotypes has also been performed. A positive result indicates detection of nucleic acid sequences from one or more subtypes, whereas a negative result indicates such sequences were not detected. All professional services are performed by [facility] ([address] [place] [id number]; ; CLIA #[id number]). The PAP Test is a screening procedure with the inherent possibility of both false negative and false positive results. Results should be interpreted in the context of historic and current clinical findings. Reliability of the PAP Test is enhanced by performing the test on a regular repetitive basis. CONTINUED ON NEXT PAGE ----- ------- Name: Lucie Arguelles Age/Sex: 59/F : 1965 Unit#: [id number] Attend Dr: Jean Quinn MD Re03/28/25 Status: DEP REF Location: HO.LNP Disch: ----- ------- SPEC : [id number] RECD: 03/29/25 STATUS: CHANO YOUNGBLOOD NUM: [id number] NOMI: 03/28/25-1403 [facility] DR: Jean Quinn MD ENTERED: 03/29/25 SP TYPE: Pap Smr OTHR DR: Tish Fontana ORDERED: Pap Smear Copies To: Tish Fontana [address] [place], [place] [phone] Jean Quinn MD [facility] [address] [place] [address] Drive [address] [place], [place] [phone] ----- ------- Signed (signature on file) CRICKET Granger (ASCP) 04/04/25 1230 ----- ------- END OF REPORT us Generic External Data Provider LAB CYTOLOGY TREVOR GLORIA Final Result [facility] [address] [place] [phone] * HPV DNA, Low/High Risk (03/28/2025 1:34 PM EDT) HPV High Risk Negative Negative [facility] HPV Genotype 16 Negative Negative [facility] HPV Genotype 18 Negative Negative [facility] Comment:HPV testing performe d at [facility] (CLIA#[id number]), [address] [place] [address].Testing for HPV was performed using the David HILTON SuperMama0system. The presence of HPV in the female genital tract isassociated with a number of diseases, including cervicalcarcinoma. The HPV DNA high risk pool tests for HPV 31, 33,35, 39, 45, 51, 52, 56, 58, 59, 66 and 68. The testing forHPV 16 and 18 genotypes has also been performed. A positiveresult indicates detection of nucleic acid sequences fromone or more subtypes, whereas a negative result indicatessuch sequences were not detected. 03/28/2025 1:34 PM EDT 03/28/2025 3:34 PM EDT us Generic External Data Provider LAB BLOOD ORDERAB LES Final Result Performing Organization Address [facility]/ZIP Co de Phone Number [facility] [address] [place] [address] [phone] * Vitamin D, 25-Hydroxy, Total, Immunoassay (01/26/2025 10:44 AM EDT) Vitamin D 25-OH Total 44.4 >30 ng/mL [facility] Comment: Health Based Reference Values*< 20 ng/mL Kncccuddd13-55 ng/mL Insufficient> 30 ng/mL Sufficient*Deshaun CHATTERJEE. N [...] 01/26/2025 1:38 PM EDT us Tish Fontana [facility] LAB BLOOD ORDERABLES Final Res ult Performing Organization Address [facility]/ZIP Co de Phone Number [facility] [address] [place] [phone] [phone] * Vitamin B12/Folate, Serum Panel (01/26/2025 10:44 AM EDT) Vitamin B12 493 200 - 900 pg/mL [facility] Comment:NORMAL 200-900 PG/ML INDETERMINATE 160-199 PG/ML DEFICIENT < 160 PG/ML Folate 8.2 > or = 4.0 ng/mL [facility] Comment:Reference Values:> o r = 4.0 ng/mL< 4.0 ng/mL suggests folate deficiency Methotrexate, aminopterin and folinic acid(leucovorin) are chemotherapeutic agents whose molecularstructures are similar to folate; therefore, the Architectfolate assay cannot be used for patients using these drugs. Blood Venous blood specimen / Unknown 01/26/2025 10:44 AM EDT 01/26/2025 1:38 PM EDT Tish Fontana [facility] LAB BLOOD ORDERABLES Final Res ult Performing Organization Address City/[facility]/ZIP Co de Phone Number [facility] [address] [place] [phone] * TSH with Reflex to Free T4 (01/26/2025 10:44 AM EDT) Pathologist [facility] TSH reflex Free T4 0.93 0.32 - 4.0 uIU/mL [facility] Blood 01/26/2025 10:4 4 AM EDT 01/26/2025 1:38 PM EDT Tish Fontana [facility] LAB BLOOD ORDERABLES Final Res ult [facility] [address] [place] [phone] * Hepatitis C Viral RNA, Quantitative, Real-Time PCR (01/26/2025 10:44 AM EDT) Pathologist [facility] Hepatitis C Viral Load <15 NOT DETECTED NOT DETECTED IU/mL [facility] HCV Log PCR <1.18 NOT DETECTED NOT DETECTED Log IU/mL [facility] Comment:For additional infor levi, please refer [email or web address](This link is being provided for informational/educational purposes only.)THIS TEST WAS PERFORMED AT:[facility] [place] [id number] HYLTON MD Blood 01/26/2025 10:4 4 AM EDT 01/26/2025 1:38 PM EDT Tish Phalen [facility] LAB BLOOD ORDERABLES Final Res ult Performing Organization Address [facility]/ZIP Co de Phone Number [facility] [address] [place] [phone] * Albumin, Random Urine W/Creatinine (01/26/2025 10:44 AM EDT) Creatinine, Urine 205.99 mg/dL [facility] Microalbumin Urine 17.0 mg/L [facility] Microalbum Creatinine Ratio Ur 8.2 <30 ug/mg cr [facility] Comment:Albumin/Creatinine R atio Reference Ranges: Normal: < 30 ug/mg creatinine Microalbuminuria: 30 - 300 ug/mg creatinineClinical Albuminuria: > 300 ug/mg creatinine Urine 01/26/2025 10:4 4 AM EDT 01/26/2025 1:10 PM EDT Tish Phalen [facility] LAB URINE ORDERABLES Final Res ult Performing Organization Address [facility]/ZIP Co de Phone Number [facility] [address] [place] [phone] * CBC auto differential (01/26/2025 10:44 AM EDT) White Blood Count 6.0 4.8 - 10.8 X10*3/uL [facility] Red Blood Count 4.39 4.20 - 5.50 X10*6/uL [facility] Hemoglobin 13.0 12.0 - 16.0 g/dl [facility] Hematocrit 39.3 37.0 - 47.0 % [facility] Mean Corpuscular Volume 89.5 80.0 - 98.0 fL [facility] Mean Corpuscular Hemoglobin 29.6 27.0 - 33.0 pg [facility] Mean Corpuscular HGB Conc 33.1 31.0 - 35.0 g/dl [facility] Red Cell Distribution Width 13.4 11.0 - 16.0 % [facility] Platelet Count 213 160 - 400 X10*3/uL [facility] Mean Platelet Volume 11.2 9.4 - 12.3 fL [facility] Neutrophils Percent Auto 55.4 45 - 73 % [facility] Imm Gran Pct Auto 0.2 0.0 - 0.4 % [facility] Lymphocytes Percent Auto 30.9 20 - 40 % [facility] Monocytes Percent Auto 10.3 2 - 11 % [facility] Eosinophils Percent Auto 3.0 0 - 4 % [facility] Basophils Percent Auto 0.2 0 - 2 % [facility] NRBC Pct Auto 0.0 0.0 - 0.2 /100WBC [facility] Neutrophils Absolute Auto 3.3 2.0 - 8.3 x10*3/uL [facility] Imm Gran Abs Auto 0.01 0.00 - 0.03 X10*3/uL [facility] Lymphocytes Absolute Auto 1.9 1.2 - 4.9 X10*3/uL [facility] Monocytes Absolute Auto 0.6 0.1 - 1.2 X10*3/uL [facility] Eosinophils Absolute Auto 0.2 0.0 - 0.4 X10*3/uL [facility] Basophils Absolute Auto 0.0 0.0 - 0.2 X10*3/uL [facility] NRBC Abs Auto 0.000 0.0 - 0.012 X10*3/uL [facility] Blood Venous blood specimen / Unknown 01/26/2025 10:44 AM EDT 01/26/2025 1:38 PM EDT Tish Fontana [facility] LAB BLOOD ORDERABLES Final Res ult Performing Organization Address [facility] Co de Phone Number [facility] [address] [place] [phone] * Iron And Total Iron Binding Capacity (01/26/2025 10:44 AM EDT) Pathologist [facility] Iron 53 30 - 160 mcg/dL [facility] Total Iron Binding Capacity 246 228 - 428 mcg/dL [facility] Percent Iron Saturation 22 15 - 50 % [facility] Unsaturated Iron Binding 193 ug/dL [facility] Blood Venous blood specimen / Unknown 01/26/2025 10:44 AM EDT 01/26/2025 1:38 PM EDT Tish Fontana [facility] LAB BLOOD ORDERABLES Final Res ult Performing Organization Address [facility] de Phone Number [facility] [address] [place] [phone] * Chlamydia/N. Gonorrhoeae RNA, TMA, Urogenitial (01/26/2025 10:44 AM EDT) [facility] CT PCR NOT DETECTED Not Detect. [facility] Comment:A not detected test result [...] psychologicalconsequences. NG PCR NOT DETECTED Not Detect. [facility] Comment:A not detected test result [...] AM EDT 01/26/2025 1:10 PM EDT Narrative [facility] - 01/26/2025 2:57 PM EDT Urine Tish Fontana [facility] MICROBIOLOGY - GENERAL ORD ERABLES Final Result Performing Organization Address [facility]/ZIP Co de Phone Number [facility] [address] [place] [address] [phone] * RPR (Monitor) with Reflex to??Titer (01/26/2025 10:44 AM EDT) RPR (Monitor) w/Refl Titer NON-REACTI VE NON-REACT DANO [facility] Comment:THIS TEST WAS PERFOR MED AT:[facility] [place] [id number] HYLTON MD Rapid Plasma Reagin Ab Titer TNP [facility] Blood Venous blood specimen / Unknown 01/26/2025 10:44 AM EDT 01/26/2025 1:38 PM EDT Tish Fontana [facility] LAB BLOOD ORDERABLES Final Res ult Performing Organization Address [facility]/ZIP Co de Phone Number [facility] [address] [place] [phone] * HIV-1/2 Antigen and Antibodies, Fourth Generation, with Reflexes (01/26/2025 10:44 AM EDT) HIV AB/AG Nonreactive Nonreactive [facility] Comment:HIV-1 p24 Ag and/or HIV-1/HIV-2 Ab not detected.A test result that is nonreactive does not exclude thepossibility of exposure to or infection with HIV-1 and/orHIV-2. Nonreactive results in this assay for individualswith prior exposure to HIV-1 and/or HIV-2 may be due toantigen and antibody levels that are below the limit ofdetection of this assay.The Overtime MedianiLevelEleven HIV Ag/Ab Combo assay result andsupplemental assay results should be interpreted inconjunction with the patient's clinical presentation,history and other laboratory results. If the results areinconsistent with clinical evidence, additional testing issuggested to confirm the result. Blood Venous blood specimen / Unknown 01/26/2025 10:44 AM EDT 01/26/2025 1:38 PM EDT Tish Fontana [facility] LAB BLOOD ORDERABLES Final Res ult [facility] [address] [place] [phone] * Magnesium (01/26/2025 10:44 AM EDT) Pathologist [facility] Magnesium 2.0 1.6 - 2.6 mg/dL [facility] Blood Venous blood specimen / Unknown 01/26/2025 10:44 AM EDT 01/26/2025 1:38 PM EDT Tish Fontana [facility] LAB BLOOD ORDERABLES Final Res ult Performing Organization Address City/[facility]/ZIP Co de Phone Number [facility] [address] [place] [phone] * (ABNORMAL) Hemoglobin A1c (01/26/2025 10:44 AM EDT) Hemoglobin A1c 6.4(H) <6.0 % [facility] Comment:Hemoglobin A1C Refer ence Range Adults: 4.8 - 6.0 % Non diabetic: < 6.0 % Goal: < 7.0 %Additional Action Suggested: > 8.0 %Note: Hemoglobin A1c results are invalid for patients with abnormal amounts of HbF. Blood transfusions may impact the HbA1c concentration in the patient sample. Estimated Average Glucose 137 mg/dL [facility] Comment:eAG = Estimated ave rage glucose which is %A1C expressed asaverage glucose, using the formula of the H3G-DzmrwqlCxnhtia Glucose study (ADAG), Diabetes Care, Vol.31,#8,Apr. 2007 Blood Venous blood specimen / Unknown 01/26/2025 10:44 AM EDT 01/26/2025 1:38 PM EDT Tish Fontana [facility] LAB BLOOD ORDERABLES Final Res ult Performing Organization Address City/[facility]/ZIP Co de Phone Number [facility] [address] [place] [phone] * Ferritin (01/26/2025 10:44 AM EDT) Pathologist [facility] Ferritin 98 10 - 250 ng/mL [facility] Blood Venous blood specimen / Unknown 01/26/2025 10:44 AM EDT 01/26/2025 1:38 PM EDT Tish Fontana [facility] BLOOD ORDERABLES Final Res ult Performing Organization Address City/[facility]/ZIP Co de Phone Number [facility] [address] [place] [phone] * Lipid Panel, Standard (01/26/2025 10:44 AM EDT) Pathologist [facility] Triglycerides 73 <150 mg/dL [facility] Comment:Desirable Triglyceri de: less than 150 mg/dLBorderline High Triglyceride 150-199 mg/dLHigh Triglyceride: 200-499 mg/dLVery High Triglyceride: greater than or equal to 5OO mg/dL Cholesterol 140 <200 mg/dL [facility] Comment:Desirable Cholestero l: less than 200 mg/dLBorderline High Cholesterol: 200-239 mg/dLHigh Cholesterol: greater than 239 mg/dL LDL Cholesterol Calculated 79 <100 mg/dL [facility] Comment:Desirable LDL: less than 100 mg/dLNear Optimal/Above Optimal LDL: 110- 129 mg/dLBorderline High LDL: 130-159 mg/dLHigh LDL: 160-189 mg/dLVery High LDL: greater than or equal to 190 mg/dL HDL Cholesterol 47 >40 mg/dL [facility] Comment:Desirable HDL: great er than 40 mg/dL Note: This HDL assay may give artificially low results in patients with liver disease. Blood Venous blood specimen / Unknown 01/26/2025 10:44 AM EDT 01/26/2025 1:38 PM EDT us Tish Fontana [facility] LAB BLOOD ORDERABLES Final Res ult [facility] [address] [place] [phone] * Comprehensive Metabolic Panel (01/26/2025 10:44 AM EDT) Sodium 142 135 - 145 mmol/L [facility] Potassium 3.7 3.3 - 5.1 mmol/L [facility] Chloride 107 96 - 108 mmol/L [facility] Carbon Dioxide 27 22 - 29 mmol/L [facility] Anion Gap 12 12 - 20 [facility] Urea Nitrogen (BUN) 11 9 - 16 mg/dL [facility] Creatinine, Serum 0.75 0.5 - 1.4 mg/dL [facility] Estimated Glomerular Filt Rate >60 [facility] Comment:Chronic Kidney Disea se: Estimated GFR < 60 mL/min/1.97c1Ttsiry Kidney Disease: Estimated GFR < 15 mL/min/1.73m2 Glucose 114 60 - 115 mg/dL [facility] Calcium 9.4 8.4 - 10.2 mg/dL [facility] Bilirubin, Total 0.3 0.0 - 1.0 mg/dL [facility] Aspartate Amino Transferase 21 5 - 31 U/L [facility] Alanine Aminotransferase 14 0 - 31 U/L [facility] Total Protein 7.1 6.5 - 8.0 g/dL [facility] Albumin Level 4.0 3.5 - 5.0 g/dL [facility] Alkaline Phosphatase 86 39 - 117 U/L [facility] Blood Venous blood specimen / Unknown 01/26/2025 10:44 AM EDT 01/26/2025 1:38 PM EDT Tish Marizol [facility] LAB BLOOD ORDERABLES Final Res ult Performing Organization Address City/State/[facility] Co de Phone Number [facility] [address] [place] [phone] * (ABNORMAL) POCT HGB A1C (01/26/2025 9:21 AM EDT) Hemoglobin A1C 6.5(A) 4.0 - 6.0 % QC Media Lot # [id number] Lot# Expiration Date Blood 01/26/2025 9:21 AM EDT Tish Fontana [facility] POINT OF CARE TEST ENTER/EDIT ORDERABLES Final Result * POCT Glucose (01/26/2025 9:21 AM EDT) Glucose Blood, POC 136 60 - 200 mg/dL Comment:Fasting QC Media Lot # [id number] Lot# Expiration Date Blood Capillary blood specimen / Unknown 01/26/2025 9:21 AM EDT us [facility] POINT OF CARE TEST ENTER/EDIT ORDERABLES Edited Result - Final * BI Mammogram Screening Tomosynthesis Bilateral (01/13/2025 1:30 PM EDT) Anatomical Region Laterality Modality Breast Bilateral Mammography 01/13/2025 1:30 PM EDT Narrative 01/21/2025 4:48 PM EDT [facility] [address] [place], [place] [address] Mammography Report Signed Patient: Lucie Arguelles MR#: [id number] : 1965 Acct:[id number] Age/Sex: 59 / F ADM Date: 01/13/25 Loc: HO.MAMMO Attending Dr: Tish Fontana [employer] Ordering Physician: Tish Fontana [employer] Results: 1Negat dano Date of Service: 01/13/25 Follow Up: 1 Year From Orig ina Mammogram Procedure(s): MM tomosynthesis screening BI Accession Number(s): [id number] cc: Tish Fontana [employer] EXAMINATION: MM SCREENING DIGITAL BREAST TOMOSYNTHESIS, BILATERAL [...] 01/21/25 1644 DD/ 1330 TD/TT: 01/13/25 1344 Toe Sewer: Procedure Note Donotuseinterpreter, Image - 01/21/2025 [facility] [address] [place] [address] Mammography Report Signed Patient: Lucie Arguelles EMR#: [id number] : 1965Acct:[id number] Age/Sex: 59 / FADM Date: 01/13/25 Loc: HO.MAMMO Attending Dr: Tish Fontana [employer] Ordering Physician: Tish Fontana FNPResults: 1Negat dano Date of Service: 01/13/25Follow Up: 1 Year From Orig ina Mammogram Procedure(s): MM tomosynthesis screening BI Accession Number(s): [id number] cc: Tish Fontana EXAMINATION: MM SCREENING DIGITAL [...] 01/21/25 1644 DD/ 1330 TD/TT: 01/13/25 1344 Toe Sewer: Tish Fontana [employer] IMG BI PROCEDURES Final Result * Hm Colonoscopy (09/10/2016) Colonoscopy Normal Normal 09/10/2016 Ruth Canas - 09/10/2016 11:20 AM EST Recommended 10 year follow up us Historical Provider HEALTH MAINTENANCE Edited Result - Final from Last 3 Months or Most Recently [place] [address] [facility] STAND[facility] Care Teams Experimental Flight Test Mechanic Relationship Specialty Start Date End Date Tish Fontana FNP [address] [place] [address] PCP - General Family Medicine 05/18/22
== END 2025-04-15 09:06 | disposition home or self-care (01) ==
LOC: HO.HOS 08:25
PROVIDERS: PCP Registered Nurse; Visit Provider Physical Medicine & Rehabilitation
DX: M47.816 Spondylosis without myelopathy or radiculopathy, lumbar region (principal); M54.42 Lumbago with sciatica, left side; G89.29 Other chronic pain
CPT/HCPCS: 99203

== ENCOUNTER → 2025-04-15 08:25 | Outpatient (BNVA) | payer MEDICAID, SELFPAY | PROVIDERS: PCP Registered Nurse; Visit Provider Physical Medicine & Rehabilitation | DX: M47.816 Spondylosis without myelopathy or radiculopathy, lumbar region (principal); M54.42 Lumbago with sciatica, left side; G89.29 Other chronic pain | CPT/HCPCS: 99202 ==

== ENCOUNTER 2025-07-15 10:29 | Outpatient (AMB) | payer MEDICAID, SELFPAY ==
--- NOTE | 2025-07-15 10:54 | A.OFFVIS_ITS ---
Vital Signs 07/15/25 10:55 Height 5 ft 1 in Weight 189 lb BMI 35.7 Intake Visit Reasons: OV-B/L low back pain-3 Month follow up Intake Note: Lucie is a 60 year old female who presents today as a follow up for her bilateral lower back pain. Previous lumbar epidural injection at least provided several months of relief. Patient reports that she has good days and bad days, although her pain is not worsening. She has not been doing home exercises. She would like to repeat MRI. Allergies citalopram Allergy (Verified 04/15/25 08:30) facial tic methocarbamol Adverse Reaction (Intermediate, Verified 04/15/25 08:30) insomnia Medication List - Last Reconciled 07/15/25 by Jazmine Snyder MD alcohol swabs (BD Alcohol Swabs) 0 pad topical back brace As directed baclofen 10 mg PO TID PRN cetirizine 10 mg PO DAILY PRN cholecalciferol (vitamin D3) (Vitamin D3) 50 mcg PO DAILY cyclobenzaprine 10 mg PO BID PRN 30 days diltiazem HCl CD (Cartia XT) 2 caps PO DAILY docusate sodium 100 mg PO BEDTIME PRN fluticasone propionate 50 mcg/actuation 1 spray intranasal BID PRN ketotifen fumarate 0.025%(0.035%) 1 drp ophthalmic (eye) BID PRN lancets (FreeStyle Lancets) As directed losartan 1 tab PO DAILY metformin 500 mg PO BID pantoprazole 40 mg PO BID pravastatin 10 mg PO DAILY HPI Comments Details: Previous patient in pain management 2021. Per their note, patient had L2-3 transforaminal epidural injection with lasting relief, at least many months. No follow up since then. Patient also saw Dr. Rico last year 2023 for knee pain. Recent lumbar x-ray showed multilevel spondylosis, disc space narrowing, large anterior endplate spurs L2-3 and L3-4. Scoliosis. Last MRI years ago at [facility]. She still gets numb left side when standing. That's chronic. Still getting low back pain every day. Across the back. Does not shoot to legs. Left leg still gets numb. Last PT years ago. Last MRI awhile back. Recent xray lumbar shows worsening of spondylosis. [facility] Medical History DVT (deep venous thrombosis) COVID-19 vaccine series completed GERD (gastroesophageal reflux disease) Elevated cholesterol HTN (hypertension) Diabetes mellitus Tachycardia Surgical History Hx of breast biopsy S/P laparoscopic cholecystectomy (07/11/21) History of endometrial ablation H/O colonoscopy Hx of dilation and curettage Hx of hemorrhoidectomy History of right knee surgery H/O tubal ligation Family History Mother Uterine cancer Father Prostate cancer Family/Other History of breast cancer Family/Other Ovarian cancer Brother Prostate cancer Social History (Updated 04/15/25 @ 08:33 by Meseret Bower) Household Members: Spouse Household Members Other:: son Housing: Apartment Are you a primary direct care specialist to a significant other at home: No Do you presently have visiting nurse or other home services: No Alcohol intake: never Patient Tobacco Use Status: Never used Tobacco Current occupational status: unemployed and disabled Sexual orientation: Straight/Heterosexual Gender identity: Female Female Reproductive History Menstrual Age of Menarche: 14 Physical Exam Exam Exam: Constitutional: Patient appears to be in no acute distress, well nourished and well developed. Patient was appropriately conversant and oriented. Good historian. Neurological: Neurologic examination of the upper and lower extremities was nonfocal with intact sensation, muscle stretch reflexes and without focal motor deficits . Babinski was down going bilaterally. Clonus was negative. Gait is non-antalgic without loss of balance. Vital Signs: BMI result Body Mass Index 35.7 Results Reviewed Results Reviewed: Ordering Physician: Emely Valerio DO Date of Service: 12/30/24 Procedure(s): XR lumbar spine 2-3V Accession Number(s): [id number] cc: Emely Valerio DO~ EXAMINATION: XR LUMBOSACRAL SPINE CLINICAL INFORMATION: acute worsening LBP x one mos with b/l hip pain COMPARISON: 06/22/2014. MRI lumbar 01/02/2018. TECHNIQUE: Three views of the lumbosacral spine. FINDINGS: Moderate levoconvex scoliosis, worsened since 2013. [place] at L2. There is a rotatory component. There is a normal lordosis. There is no definite subluxation. There is no fracture, compression deformity, or suspicious bone lesion. There is moderate to severe multilevel disc degeneration, with disc vacuum phenomenon at all levels. There are large right laterally and anteriorly projecting disc osteophytes, most notable spanning L2-3, and L3-4. There are sclerotic type endplate changes present at L1 to, L2-3, and L3-4. Multilevel degenerative facet changes present throughout. The sacrum appears intact. There are mild to moderate arthritic changes in the right than left SI joints. There are cholecystectomy clips. Soft tissues otherwise normal. XR/XR lumbar spine 2-3V IMPRESSION: 1. Worsening levoconvex scoliosis, now moderate. 2. Worsening multilevel moderate to severe spondylosis. Electronically signed by: Les Ro MD 12/30/2024 03:34 PM EDT RP Ordering Physician: Emely Valerio DO Date of Service: 12/30/24 Procedure(s): XR lumbar spine 2-3V Accession Number(s): [id number] cc: Emely Valerio DO~ EXAMINATION: XR LUMBOSACRAL SPINE CLINICAL INFORMATION: acute worsening LBP x one mos with b/l hip pain COMPARISON: 06/22/2014. MRI lumbar 01/02/2018. TECHNIQUE: Three views of the lumbosacral spine. FINDINGS: Moderate levoconvex scoliosis, worsened since 2013. [place] at L2. There is a rotatory component. There is a normal lordosis. There is no definite subluxation. There is no fracture, compression deformity, or suspicious bone lesion. There is moderate to severe multilevel disc degeneration, with disc vacuum phenomenon at all levels. There are large right laterally and anteriorly projecting disc osteophytes, most notable spanning L2-3, and L3-4. There are sclerotic type endplate changes present at L1 to, L2-3, and L3-4. Multilevel degenerative facet changes present throughout. The sacrum appears intact. There are mild to moderate arthritic changes in the right than left SI joints. There are cholecystectomy clips. Soft tissues otherwise normal. XR/XR lumbar spine 2-3V IMPRESSION: 1. Worsening levoconvex scoliosis, now moderate. 2. Worsening multilevel moderate to severe spondylosis. Electronically signed by: Les Ro MD 12/30/2024 03:34 PM EDT RP Assessment & Plan Assessment & Plan (1) Chronic back pain: Code(s): M54.9 - Dorsalgia, unspecified; G89.29 - Other chronic pain Category: Medical Qualifiers: Back pain laterality: left Back pain location: low back pain Sciatica laterality: sciatica of left side Sciatica presence: with sciatica Qualified Code(s): M54.42 - Lumbago with sciatica, left side; G89.29 - Other chronic pain Plan Worsening back pain. Progression of spondylosis as seen on recent lumbar x-ray. Fortunately no neurologic deficits. We will refer back to physical therapy. If not improved, we will repeat lumbar MRI. She will consider injections if needed. Assessment and plan discussed with patient, and patient was agreeable. All questions were answered thoroughly. Follow up 6-8 weeks. Jazmine Snyder MD, PHYLICIA Board Certified, [place] Board [employer] and Rehabilitation (ABPMR) Board Certified, [place] Board of Electrodiagnostic Medicine (ABEM) Orders: Orders PT Evaluation and Treatment Today G89.29 - Other chronic pain, M54.42 - Lumbago with sciatica, left side Coding Level of Care Code Est Pt Level 4 (11618) Diagnoses Chronic left-sided low back pain with left-sided sciatica M54.42; G89.29 Back pain laterality: left Back pain location: low back pain Sciatica laterality: sciatica of left side Sciatica presence: with sciatica
[2025-07-15 10:55] VITALS: BMI 35.7
--- OUTSIDE RECORDS SUMMARY | 2025-07-15 12:04 | XMS_ITS | Encounter Summary ---
Author Organization [employer] Address [address] [place] [address] Care Team Providers Care Home And School Visitor Name Role Phone Tish Fontana Primary Care Provider [phone] Reason for Visit * Reason Comments Med Refill Encounter Details Date Type Department Care Team (Late st Contact Info) Description 01/10/2024 Refill [facility] [address] [place] [address] Tish Fontana FNP [address] [place] [address] Supraventricular tachycardia (CMS/HCC) Social History Tobacco Use [...] as of this encounter Plan of Treatment Not on file documented as of this encounter Visit Diagnoses Diagnosis Supraventricular tachycardia (CMS/HCC) Other specified cardiac dysrhythmias documented in this encounter Additional Health Concerns Assessment Noted Time PHQ-9 Depression Total Score: 0 12/27/19 23 11:09 AM EDT documented as of this encounter Care Teams Home And School Visitor Relationship Specialty Start Date End Date Tish Fontana FNP [address] [place] [address] PCP - General Family Medicine 05/18/22 documented as of this encounter
--- OUTSIDE RECORDS SUMMARY | 2025-07-15 12:04 | XMS_ITS | Encounter Summary ---
Author Organization [employer] Address [address] [place] [address] Care Team Providers Care Career Services Director Name Role Phone Tish Fontana Primary Care Provider [phone] Reason for Visit * Reason Comments Med Refill Encounter Details Date Type Department Care Team (Late st Contact Info) Description 06/22/2024 Refill [facility]INE [address] [place] [address] Tish Fontana FNP [address] [place] [address] Social History Tobacco Use Types Packs/Day Years [...] Time PHQ-9 Depression Total Score: 8 01/14/20 10:46 AM EDT documented as of this encounter Care Teams Career Services Director Relationship Specialty Start Date End Date Tish Fontana FNP [address] [place] [address] PCP - General Family Medicine 05/18/22 documented as of this encounter
--- OUTSIDE RECORDS SUMMARY | 2025-07-15 12:04 | XMS_ITS | Encounter Summary ---
Author Organization [employer] Address [address] [place] [address] Care Team Providers Care Time Motion Analyst Name Role Phone Tish Fontana Primary Care Provider [phone] Reason for Visit * Reason Comments Med Refill Encounter Details Date Type Department Care Team (Late st Contact Info) Description 07/16/2024 Refill [facility] [address] [place] [address] Tish Fontana FNP [address] [place] [address] Social History Tobacco Use Types Packs/Day Years [...] documented as of this encounter Care Teams Time Motion Analyst Relationship Specialty Start Date End Date Tish Fontana FNP [address] [place] [address] PCP - General Family Medicine 05/18/22 documented as of this encounter
--- OUTSIDE RECORDS SUMMARY | 2025-07-15 12:04 | XMS_ITS | Encounter Summary ---
Author Organization [employer] Address [address] [facility] [address] [place] [address] Care Team Providers Care Elementary School Registrar Name Role Phone Tish Fontana Primary Care Provider [phone] Encounter Details Date Type Department Care Team (Latest Contact Info) Description 03/05/2021 Abstract [facility] CONVERSIONS Dental, Provider, DDS Social History [...] on filedocumented in this encounter Care Teams Elementary School Registrar Relationship Specialty Start Date End Date Tish Fontana FNP [address] [place] [address] PCP - General Family Medicine 05/18/22 documented as of this encounter
--- OUTSIDE RECORDS SUMMARY | 2025-07-15 12:04 | XMS_ITS | Encounter Summary ---
Author Organization [employer] Address [address] [place] [address] Care Team Providers Care Ancient Art Curator Name Role Phone Tish Fontana Primary Care Provider [phone] Encounter Details Date Type Department Care Team (Late st Contact Info) Description 01/29/2023 Abstract [facility] MEDICINE [address] [place] [address] Tish Fontana FNP [address] [place], [place] [phone] Social History Tobacco Use Types Packs/Day Years [...] on file documented as of this encounter Procedures Procedure Name Priority Date/Time Associated Diagnosis Comments COLONOSCOPY Routine 09/10/2016 documented in this encounter Results * Colonoscopy (09/10/2016) Colonoscopy Normal Normal 09/10/2016 Narrative Ruth Rbo - 09/10/2016 11:20 AM EST Recommended 10 year follow up us Historical Provider HEALTH MAINTENANCE Edited Result - Final documented in this encounter Visit Diagnoses Not on filedocumented in this encounter Additional Health Concerns Assessment Noted Time PHQ-9 Depression Total Score: 0 12/27/19 23 11:09 AM EDT documented as of this encounter Care Teams Ancient Art Curator Relationship Specialty Start Date End Date Tish Fontana FNP [address] [place] [address] PCP - General Family Medicine 05/18/22 documented as of this encounter
--- OUTSIDE RECORDS SUMMARY | 2025-07-15 12:04 | XMS_ITS | Encounter Summary ---
Author Organization [employer] Address [address] [place] [address] Care Team Providers Care Farmer Cash Grain Name Role Phone Tish Fontana Primary Care Provider [phone] Reason for Visit * Reason Comments Med Refill Encounter Details Date Type Department Care Team (Late st Contact Info) Description 06/30/2024 Refill [facility] MEDICINE [address] [place] [address] Tish Fontana FNP [address] [place] [address] Social History Tobacco Use Types Packs/Day Years [...] documented as of this encounter Care Teams Farmer Cash Grain Relationship Specialty Start Date End Date Tish Fontana FNP [address] [place] [address] PCP - General Family Medicine 05/18/22 documented as of this encounter
--- OUTSIDE RECORDS SUMMARY | 2025-07-15 12:04 | XMS_ITS | Encounter Summary ---
Author Organization [employer] Address [address] [place] [address] Care Team Providers Care Regional Administrative Assistant Name Role Phone Tish Fontana Primary Care Provider [phone] Reason for Visit * Reason Onset Date Comments Nurse Triage 07/14/2023 Encounter Details Date Type Department Care Team ([facility] st Contact Info) Description 07/14/2023 Telephone [facility] [address] [place], [place] [phone] Tish Fontana FNP [address] [place], [place] [phone] Nurse Triage Social History Tobacco Use Types Packs/Day Years Used Date Smoking Tobacco: Never Smokeless Tobacco: Never Depression Answer Date Recorded Patient Health Questionnaire-9 Score 0 12/26/2022 Housing Stability Answer Date Recorded What is your housing situation today? I have sowaldo rush 07/14/[address] you [...] documented as of this encounter Care Teams Regional Administrative Assistant Relationship Specialty Start Date End Date Tish Fontana FNP [address] [place] [address] PCP - General Family Medicine 05/18/22 documented as of this encounter
--- OUTSIDE RECORDS SUMMARY | 2025-07-15 12:04 | XMS_ITS | Encounter Summary ---
Author Organization [employer] Address [address] [facility] [address] [place] [address] Care Team Providers Care Hand Singer Name Role Phone Tish Fontana Primary Care Provider [phone] Reason for Visit * Reason Comments Med Refill Encounter Details Date Type Department Care Team (Late st Contact Info) Description 01/19/2023 Refill [facility]INE [address] [place] [address] Tish Fontana FNP [address] [place] [address] Anxiety with flying Social History Tobacco Use [...] documented in this encounter Plan of Treatment Not on file documented as of this encounter Visit Diagnoses Diagnosis Anxiety with flying documented in this encounter Additional Health Concerns Assessment Noted Time PHQ-9 Depression Total Score: 0 12/27/19 23 11:09 AM EDT documented as of this encounter Care Teams Hand Singer Relationship Specialty Start Date End Date Tish Fontana FNP [address] [place] [address] PCP - General Family Medicine 05/18/22 documented as of this encounter
--- OUTSIDE RECORDS SUMMARY | 2025-07-15 12:04 | XMS_ITS | Clinical Summary ---
Author Organization [employer] Address [address] [facility] [address] [place] [address] Care Team Providers Care Cycle Director Name Role Phone Tish Fontana CEMETERY WORKER Primary Care Provider [phone] Allergies Active Allergy Reactions Criticality Noted Date Comments Citalopram 12/01/2019 Methocarbamol Insomnia High 03/12/2024 Medications Alcohol Swabs (B-D SINGLE USE SWABS REGULAR) pads USE BEFORE CHECKING BLOOD SUGAR 100 each 11 06/27/20 24 Active FreeStyle lancetsIndication s:Type 2 diabetes mellitus without complication, unspecified whether mcc insulin use 1 each by Other route Once per day. 100 each 11 06/27/20 24 Active glucose blood (FREESTYLE LITE) test stripIndications: Type 2 diabetes mellitus without complication, without long-term current use of insulin (HCC) USE TO TEST BLOOD SUGAR ONCE EVERY DAY 100 strip 3 06/27/20 24 Active guaiFENesin (Mucinex) 600 MG 12 hr tablet Take 2 tablets (1,200 mg) by mouth 2 times daily. Do not crush, chew, or split. 120 tablet 11 11/05/19 25 026 Active Multiple Vitamins-Minerals (PreserVision AREDS) capsule Take 1 capsule by mouth 2 times daily. Take with food. 60 capsule 11 12/18/19 25 Active lidocaine (Lidoderm) 5 % patch Apply 1-2 patches topically if needed each day for mild pain. Remove & discard patch within 12 hours or as directed by MD. 60 patch 3 12/31/19 25 Active naproxen (Naprosyn) 500 MG tabletIndications :COVID-19 virus infection Take 1 tablet (500 mg) by mouth if needed in the morning and at bedtime for mild pain or moderate pain for up to 30 doses. 30 tablet 12/31/19 25 Active Diclofenac Sodium 1 % gel Apply 2 g topically if needed in the morning, at noon, in the evening, and at bedtime (pain). 150 g 3 12/31/19 25 Active dilTIAZem CD (Cardizem CD) 180 MG 24 hr capsuleIndication s:Supraventricula r tachycardia (CMS/HCC) TAKE TWO CAPSULES BY MOUTH EVERY DAY 180 capsule 1 01/27/20 25 Active docusate sodium (Colace) 100 MG capsuleIndication s:Constipation, unspecified constipation type TAKE ONE CAPSULE BY MOUTH AT BEDTIME NEEDED FOR CONSTIPATION 90 capsule 3 01/27/20 25 Active losartan (Cozaar) 50 MG tabletIndications :Essential hypertension Take 1 tablet (50 mg) by mouth Once per day. 90 tablet 3 01/27/20 25 Active metFORMIN XR (Glucophage-XR) 500 MG 24 hr tabletIndications :Type 2 diabetes mellitus without complication, without long-term current use of insulin (HCC) TAKE ONE TABLET BY MOUTH TWICE A DAY 180 tablet 3 01/27/20 25 Active pantoprazole (Protonix) 40 MG EC tablet Take 1 tablet (40 mg) by mouth before breakfast. Do not crush, chew, or split. 90 tablet 1 01/27/20 25 026 Active pravastatin (Pravachol) 10 MG tabletIndications :Type 2 diabetes mellitus without complication, without long-term current use of insulin (HCC) Take 1 tablet (10 mg) by mouth at bedtime. 90 tablet 3 01/27/20 25 Active PARoxetine (Paxil) 10 MG tabletIndications :Vasomotor symptoms due to menopause Take 1 tablet (10 mg) by mouth at bedtime. 90 tablet 1 01/27/20 25 026 Active cholecalciferol (D3 Super Strength) 50 MCG (2000 UT) capsule TAKE ONE CAPSULE BY MOUTH EVERY DAY 90 capsule 1 02/05/20 25 Active cetirizine (ZyrTEC) 10 MG tabletIndications :Seasonal allergies TAKE ONE TABLET BY MOUTH EVERY DAY NEEDED FOR ALLERGIES 90 tablet 3 04/27/20 25 Active Ketotifen Fumarate 0.035 % solutionIndicatio ns:Seasonal allergies Administer 1 drop into affected eye(s) if needed in the morning and at bedtime (allergies). 5 mL 3 04/27/20 25 Active fluticasone (Flonase) 50 MCG/ACT nasal sprayIndications: Seasonal allergies APPLY ONE SPRAY IN EACH NOSTRIL TWICE A DAY NEEDED 48 g 3 04/27/20 25 Active baclofen (Lioresal) 10 MG tabletIndications :Lumbar radiculopathy Take 1 tablet (10 mg) by mouth if needed in the morning, at noon, and at bedtime for muscle spasms. 60 tablet 3 04/27/20 Active Fezolinetant 45 MG tablet Take 45 mg by mouth Once per day. (Hot flashes) 90 tablet 1 05/31/20 25 Active Active Problems Problem Noted Date Diagnosed Date Seasonal allergies 01/28/2025 Assessment & Plan (04/28/2025 6:41 PM EDT): - Cont cetirizine, flonase, and ketotifen eye drops PRN Assessment & Plan (01/28/2025 8:25 PM EDT): - Cont cetirizine, flonase, and ketotifen eye drops PRN Vasomotor symptoms due to menopause 06/27/2024 Assessment & Plan (04/28/2025 6:41 PM EDT): Symptoms bothersome and frequent despite lifestyle interventions Plan: Due to history of DVT, recommend non-hormonal treatment. January 2025-Apr 2025: trial of paroxetine, did not experience substantial relief Plan: PA for David (fezolinetant). Reviewed need for LFT labs (baseline, monthly for 3 months, then at months 6 and 9) due to the risk of hepatotoxicity) Assessment & Plan (01/28/2025 8:20 PM EDT): [...] Plan (04/06/2024 5:24 PM EDT): Following with [facility] TELECOMMUNICATIONS TECHNICIAN - Dr. Quinn Identified on US 02/19/24 - tiny 1cm intramural myoma in left body of the uterus. Plan: expectant management with repeat pelvic US periodically Postcoital bleeding 04/06/2024 Assessment & Plan (06/27/2024 4:06 PM EDT): Following with [facility] TELECOMMUNICATIONS TECHNICIAN Joe Quinn. Pelvic US 01/30/24: 1. Tiny [...] mild atypia, suspicious for ARISTIDES 1 03/23/24: [facility] TELECOMMUNICATIONS TECHNICIAN - Dr. Quinn. Recommended co-testing in 12 months. Plan to call if she experiences any more vaginal bleeding (PCB) Had consult at [facility] for consideration of lap hysterectomy, encouraged to defer at this time Assessment & Plan (04/06/2024 5:28 PM EDT): Following with [facility] TELECOMMUNICATIONS TECHNICIAN Joe Quinn. Pelvic US 01/30/24: 1. Tiny [...] this week to discuss next steps with TELECOMMUNICATIONS TECHNICIAN. Given her PMB, PCB, and family history, [...] diet discussed. Routine health maintenance 12/26/2022 Overview (04/28/2025): -Pap: NILM HPV neg 09/2017, HPV neg 01/15/22. NILM/HPV neg 03/28/25. See N93.0. Following with [facility] TELECOMMUNICATIONS TECHNICIAN -Mammogram: 01/13/25: BIRADS 1 -Colonoscopy: normal 2015, due 2025 -Optometry: [facility] Jul 2023 -Dental: established with [facility] Dental -Last physical exam: 01/26/2025 Essential [...] week as able. -Eye: Jul 2023 at [facility] -Microalbumin 24 December 2022 Assessment & Plan (04/06/2024 5:33 PM EDT): Well controlled Anxiety 06/18/2018 Overview (05/02/2023): Following with [facility] Diagnoses include: MDD & LEONIE Lumbar radiculopathy 06/18/2018 Assessment & Plan (04/28/2025 6:44 PM EDT): Consult with [facility] Ortho March 2025. L2-3 transforaminal epidural injection with lasting relief in 2021. Cyclobenzaprine, baclofen, naproxen as needed. Does home PT exercises. Plan-consider MRI in future. Gastroesophageal reflux disease 06/16/2012 Supraventricular tachycardia 06/16/2012 Overview (01/28/2025): -Continue Cardizem 360mg daily - Previously followed with cardiology Assessment & Plan (01/28/2025 8:19 PM EDT): Well-controlled, continue current therapy Resolved Problems Problem Noted Date Diagnosed Date Resolved Date Flushing 09/23/2018 06/27/2024 Allergic rhinitis 06/16/2012 01/28/2025 Encounters Date Type Department Care Team Description 06/01/2025 Telephone [facility] [address] [place] [address] Tish Fontana FNP [place] 05/31/2025 Orders Only [facility] [address] [place] [address] Tish Fontana FNP 05/19/2025 Telephone [facility] [address] [place] [address] Tish Fontana FNP 04/29/2025 Telephone [facility] [address] [place] [address] Tish Fontana FNP 04/27/2025 10:00 AM EDT Office Visit [facility] [address] [place] [address] Tish Fontana FNP Vasomotor symptoms due to menopause (Primary Dx); Seasonal allergies; Routine health maintenance; Lumbar radiculopathy 04/27/2025 Travel 04/26/[address] [address] Tish Fontana FNP chart prep from Last 3 Months Immunizations Immunization Administration [...] Sign Reading Time Taken Comments Blood Pressure 128/84 04/27/2025 9:59 AM EDT Pulse 70 04/27/2025 9:59 AM EDT Temperature 36.3 C (97.3 F) 04/27/2025 9:59 AM EDT Respiratory Rate 20 04/27/2025 9:59 AM EDT Oxygen Saturation 96% 04/27/2025 9:59 AM EDT Inhaled Oxygen Concentration - - Weight 87.1 kg (192 lb) 04/27/2025 9:59 AM EDT Height 156.2 cm (5' 1.5 ) 04/27/2025 9:59 AM EDT Body Mass Index 35.69 04/27/2025 9:59 AM EDT Plan of Treatment Health Maintenance Due Date Last Done Comments CT Colonography 1966 FIT DNA/Cologuard 1966 FIT 1965 FOBT 1965 Sigmoidoscopy 1966 Diabetes: Foot Exam 1976 Alcohol/Substance Use Screening 1978 Diabetes: Hemoglobin A1C 04/28/2025 025, 01/26/2025, 06/25/2024, Additional history exists COVID-19 Vaccine ( season) 2025 10/16/2021, 01/30/2021, 01/02/2021 Influenza Vaccine (#1) 2025 , 07/21/2023, 06/21/2022, Additional history exists Depression Monitoring 07/29/2025 01/26/2025, 025 Mammogram 01/13/2026 01/13/2025, 12/21, 12/31/2022, Additional history exists Diabetes: Urine Protein Screening 01/26/2026 01/26/2025, 12/26/2022, 12/07/2020, Additional history exists Disability Screening 01/26/2026 01/26/2025 Lipid Panel 01/26/2026 01/26/2025, 04/0 02/2023, 12/07/2020 SDOH Screening 01/26/2026 01/26/2025 Tobacco Screening 04/27/2026 04/27/2025 Colonoscopy 09/10/2026 09/10/2016 Colorectal Cancer Screening 09/10/2026 Eye Exam 12/17/2026 12/17/2024, 11/21, 12/17/2024, Additional history exists Cervical Cancer Screening 03/28/2030 HPV/Cotest 03/28/2030 03/28/2025, 12/22, 01/15/2022 Pap Smear 03/28/2030 03/28/2025 DTaP/Tdap/Td Vaccines [...] DNA, LOW/HIGH RISK Routine 1:34 PM EDT HEPATITIS C VIRAL RNA, QUANTITATIVE, REAL-TIME PCR [...] complication, without long-term current use of insulin ([facility]) BI MAMMOGRAM SCREENING TOMOSYNTHESIS BILATERAL Routine 01/13/2025 1:30 PM EDT HM COLONOSCOPY Routine 09/10/2016 from Last 3 Months or Most Recently Relevant to Health Maintenance Results * Pap Smear (03/28/2025 2:03 PM EDT) 03/28/2025 2:03 PM EDT 03/29/2025 8:20 AM EDT [facility] - 04/04/2025 12:30 PM EDT ----- ------- Name: Lucie Arguelles Age/Sex: 59/F : 1965 Unit#: [id number] Attend Dr: Jean Quinn MD Re03/28/25 Status: DEP REF Location: HO.LNP Disch: ----- ------- SPEC : [id number] RECD: 03/29/25 STATUS: CHANO YOUNGBLOOD NUM: [id number] NOMI: 03/28/[address] [facility] [address]: Jean Quinn MD ENTERED: 03/29/25 SP TYPE: Pap Smr OT DR: Tish Fontana CEMETERY WORKER ORDERED: Pap Smear Interpretation Satisfactory for evaluation [...] and HPV testing will be performed at [facility] (CLIA #[id number]), [address] [place] [address]. Testing for HPV was performed using the [employer]AS 6800 system. The presence of HPV in [...] detected. All professional services are performed by [facility] ([address] [place] [id number]; ; CLIA #[id number]). The PAP Test is a screening procedure with the inherent possibility of both false negative and false positive results. Results should be interpreted in the context of historic and current clinical findings. Reliability of the PAP Test is enhanced by performing the test on a regular repetitive basis. CONTINUED ON NEXT PAGE ----- ------- Name: Lucie Arguelles Age/Sex: 59/F : 1965 Unit#: [id number] Attend Dr: Jean Quinn MD Re03/28/25 Status: DEP REF Location: [facility] Disch: ----- ------- SPEC : [id number] RECD: 03/29/25 STATUS: CHANO YOUNGBLOOD NUM: [id number] NOMI: 03/28/25-14[address] [facility] [address]: Jean Quinn MD ENTERED: 03/29/25 SP TYPE: Pap Smr OTHR DR: Tish Fontana ORDERED: Pap Smear Copies To: Tish Fontana [address] [place], [place] [phone] Jean Quinn MD [facility] [address] [place] [address] Drive [address] [place] [address] ----- ------- Signed (signature on file) CRICKET Granger ([facility]) 04/04/25 1230 ----- ------- END OF REPORT Generic External Data Provider LAB CYTOLOGY ORDE RABLES Final Result Performing Organization Address [facility]/ZIP Co de Phone Number [facility] [address] [place] [address] [phone] * HPV DNA, Low/High Risk (03/28/2025 1:34 PM EDT) [facility] HPV High Risk Negative Negative [facility] HPV Genotype 16 Negative Negative [facility] HPV Genotype 18 Negative Negative [facility] Comment:HPV testing performe d at [facility] (CLIA#[id number]), [address] [place] [address].Testing for HPV was performed using the [employer] 6800system. The presence of HPV in the female [...] 1:34 PM EDT 03/28/2025 3:34 PM EDT Generic External Data Provider LAB BLOOD ORDERAB LES Final Result Performing Organization Address [facility] Co de Phone Number [facility] [address] [place] [address] [phone] * Hepatitis C Viral RNA, Quantitative, Real-Time PCR (01/26/2025 10:44 AM EDT) Pathologist [facility] Hepatitis C Viral Load <15 NOT DETECTED NOT DETECTED IU/mL [facility] HCV Log PCR <1.18 NOT DETECTED NOT DETECTED Log IU/mL [facility] Comment:For additional infor levi, please refer [email or web address]/faq/[email or web address](This link is being provided for informational/educational purposes only.)THIS TEST WAS PERFORMED AT:[facility] [place] [id number] HYLTON MD Blood 01/26/2025 10:4 4 AM EDT 01/26/2025 1:38 PM EDT Tish Fontana CEMETERY WORKER LAB BLOOD ORDERABLES Final Res ult Performing Organization Address [facility] Co de Phone Number [facility] [address] [place] [phone] * Albumin, Random Urine W/Creatinine (01/26/2025 10:44 AM EDT) Creatinine, Urine 205.99 mg/dL [facility] Microalbumin Urine 17.0 mg/L [facility] Microalbum Creatinine Ratio Ur 8.2 <30 ug/mg cr [facility] Comment:Albumin/Creatinine R atio Reference Ranges: Normal: < 30 ug/mg creatinine Microalbuminuria: 30 - 300 ug/mg creatinineClinical Albuminuria: > 300 ug/mg creatinine Urine 01/26/2025 10:4 4 AM EDT 01/26/2025 1:10 PM EDT Tish Fontana CEMETERY WORKER LAB URINE ORDERABLES Final Res ult Performing Organization Address [facility] Co de Phone Number [facility] [address] [place] [phone] * HIV-1/2 Antigen and Antibodies, Fourth Generation, with Reflexes (01/26/2025 10:44 AM EDT) HIV AB/AG Nonreactive Nonreactive [facility] Comment:HIV-1 p24 Ag and/or HIV-1/HIV-2 Ab not detected.A test result that is nonreactive does not exclude thepossibility of exposure to or infection with HIV-1 and/orHIV-2. Nonreactive results in this assay for individualswith prior exposure to HIV-1 and/or HIV-2 may be due toantigen and antibody levels that are below the limit ofdetection of this assay.The [employer] HIV Ag/Ab Combo assay result andsupplemental assay results should be interpreted inconjunction with the patient's clinical presentation,history and other laboratory results. If the results areinconsistent with clinical evidence, additional testing issuggested to confirm the result. Blood Venous blood specimen / Unknown 01/26/2025 10:44 AM EDT 01/26/2025 1:38 PM EDT us Tish Fontana CEMETERY WORKER LAB BLOOD ORDERABLES Final Res ult [facility] [address] [place] [phone] * Lipid Panel, Standard (01/26/2025 10:44 AM EDT) Triglycerides 73 <150 mg/dL [facility] Comment:Desirable Triglyceri de: less than 150 mg/dLBorderline High Triglyceride 150-199 mg/dLHigh Triglyceride: 200-499 mg/dLVery High Triglyceride: greater than or equal to 5OO mg/dL Cholesterol 140 <200 mg/dL [facility] Comment:Desirable Cholestero l: less than 200 mg/dLBorderline High Cholesterol: 200-239 mg/dLHigh Cholesterol: greater than 239 mg/dL LDL Cholesterol Calculated 79 <100 mg/dL [facility] Comment:Desirable LDL: less than 100 mg/dLNear Optimal/Above Optimal LDL: 110- 129 mg/dLBorderline High LDL: 130-159 mg/dLHigh LDL: 160-189 mg/dLVery High LDL: greater than or equal to 190 mg/dL HDL Cholesterol 47 >40 mg/dL [facility] Comment:Desirable HDL: great er than 40 mg/dL Note: This HDL assay may give artificially low results in patients with liver disease. Blood Venous blood specimen / Unknown 01/26/2025 10:44 AM EDT 01/26/2025 1:38 PM EDT Tish TA LAB BLOOD ORDERABLES Final Res ult [facility] [address] [place] [phone] * (ABNORMAL) POCT HGB A1C (01/26/2025 9:21 AM EDT) Hemoglobin A1C 6.5(A) 4.0 - 6.0 % QC Media Lot # [id number] Lot# Expiration Date Blood 01/26/2025 9:21 AM EDT Tish ARELLANOP POINT OF CARE TEST ENTER/EDIT ORDERABLES Final Result * BI Mammogram Screening Tomosynthesis Bilateral (01/13/2025 1:30 PM EDT) Anatomical Region Laterality Modality Breast Bilateral Mammography 01/13/2025 1:30 PM EDT Narrative 01/21/2025 4:48 PM EDT [address] [place] [address] Mammography Report Signed Patient: Lucie Arguelles MR#: [id number] : 1965 Acct:[id number] Age/Sex: 59 / F ADM Date: 01/13/25 Loc: HO.MAMMO Attending Dr: Tish TA Ordering Physician: Tish Fontana Results: 1Negat kathi Date of Service: 01/13/25 Follow Up: 1 Year From Orig inal Mammogram Procedure(s): MM tomosynthesis screening BI Accession Number(s): [id number] cc: Tish Fontana EXAMINATION: MM SCREENING DIGITAL [...] 01/21/25 1644 DD/ 1330 TD/TT: 01/13/25 1344 Market Development Analyst: Procedure Note Donotuseinterpreter, Image - 01/21/2025 [facility] [address] [place], [place] [address] Mammography Report Signed Patient: Lucie Arguelles EMR#: [id number] : 1965Acct:[id number] Age/Sex: 59 / FADM Date: 01/13/25 Loc: HO.MAMMO Attending Dr: Tish Fontana CEMETERY WORKER Ordering Physician: Tish FontanaPResults: 1Negat kathi Date of Service: 01/13/25Follow Up: 1 Year From Orig inal Mammogram Procedure(s): MM tomosynthesis screening BI Accession Number(s): [id number] cc: Tish Fontana EXAMINATION: MM SCREENING DIGITAL [...] 01/21/25 1644 DD/ 1330 TD/TT: 01/13/25 1344 Market Development Analyst: Tish Fontana CEMETERY WORKER IMG BI PROCEDURES Final Result * Hm Colonoscopy (09/10/2016) Colonoscopy Normal Normal 09/10/2016 Ruth Canas - 09/10/2016 11:20 AM EST Recommended 10 year follow up Historical Provider HEALTH MAINTENANCE Edited Result - Final from Last 3 Months or Most Recently Relevant to Health Maintenance Insurance [address] [place] [address] [employer] Care Teams Cycle Director Relationship Specialty Start Date End Date Tish Fontana FNP [address] [place] [phone] PCP - General Family Medicine 05/18/22
== END 2025-07-15 11:32 | disposition home or self-care (01) ==
LOC: HO.HOS 10:29
PROVIDERS: PCP Registered Nurse; Visit Provider Physical Medicine & Rehabilitation
DX: M54.42 Lumbago with sciatica, left side (principal); G89.29 Other chronic pain
CPT/HCPCS: 99213

== ENCOUNTER → 2025-07-15 10:29 | Outpatient (BNVA) | payer MEDICAID, SELFPAY | PROVIDERS: PCP Registered Nurse; Visit Provider Physical Medicine & Rehabilitation | DX: M54.42 Lumbago with sciatica, left side (principal); G89.29 Other chronic pain | CPT/HCPCS: 99212 ==